=== PATIENT | female | born 1945 | race Caucasian/White ===

== ENCOUNTER 2017-06-18 23:04 | Inpatient (IN) ==
[2017-06-19 00:15] LABS: Bilirubin,Urine Negative (Negative); Blood,Urine Trace (Negative); Clarity,Urine Clear (Clear); Color,Urine Yellow (Yellow); Glucose,Urine (UA) Normal (Normal); Ketones,Urine 15 mg/dL (Negative); Leukocyte Esterase,Urine Negative (Negative); Nitrite,Urine Negative (Negative); PH,Urine 6.5 pH Units (5.0-8.0); Protein,Urine Negative (Neg-Trace); Specific Gravity,Urine 1.014 (1.010-1.025); Urobilinogen,Urine Normal (Normal)
[2017-06-19 00:17] LABS: Bacteria,Urine None Seen per hpf (None-Few); Hyaline Casts,Urine None Seen per lpf (None-Few); RBC,Urine 0-3 per hpf (0-3); Squamous Epithelial Cell,Urine Moderate per lpf (None-Few); WBC,Urine 0-3 per hpf (0-3)
[2017-06-19] MEDS ORDERED: Ondansetron 4 MG/2 ML VIAL IVP ONE (00:32)
[2017-06-19] MEDS ORDERED: *HR* HYDROmorphone (PF) 1 MG/ML SYRINGE IVP ONE (00:32)
--- NOTE | 2017-06-19 00:34 | Emergency Department Note ---
Disposition Clinical Impression: History of hysterectomy Pneumonia Qualifiers: Pneumonia type: due to unspecified organism Laterality: unspecified laterality Lung location: unspecified part of lung Qualified Code(s): J18.9 - Pneumonia, unspecified organism Abdominal pain Qualifiers: Abdominal location: unspecified location Qualified Code(s): R10.9 - Unspecified abdominal pain Disposition: Admitted As Inpatient Condition: Good Time of Disposition: 04:41 Abdominal Pain HPI - General Chief Complaint: ED Nausea/Vomiting/Diarrhea Stated Complaint: had hysterectomy yesterday, vomiting Time Seen by Provider: 06/19/17 00:17 Source: patient Nursing Notes Reviewed: Yes Vital Signs Reviewed: Yes - History of Present Illness Pt Subjective Complaint: abdominal pain Onset (ago): day(s) Consistency: Worsening Location: diffuse Pain Scale: 9 Radiation: none Migration to: no migration Improves with: nothing Worsens with: nothing Context: recent surgery/procedure (Hysterectomy 2 days ago) Associated symptoms: Reports: nausea, vomiting, fever, other (Shortness of breath) Treatments prior to arrival: prescription analgesics - Related Data Home Medications Medication Instructions Recorded Confirmed Amlodipine Besylate 10 mg PO HS 12/12/15 05/12/16 Cholecalciferol (Vitamin D3) 4,000 mg PO HS 12/12/15 05/12/16 [Vitamin D3] Furosemide [Lasix] 40 mg PO DAILY 12/12/15 05/12/16 Glyburide/Metformin HCl 2 tab PO BID 12/12/15 05/12/16 [Glucovance 5-500 mg Tablet] L.acidoph,Paracasei, B.lactis 1 cap PO DAILY 12/12/15 05/12/16 [Probiotic] Levothyroxine [Synthroid] 25 mcg PO DAILY 12/12/15 05/12/16 Omeprazole [PriLOSEC] 40 mg PO DAILY 12/12/15 05/12/16 Melatonin [Melatin] 3 mg PO HS 01/14/16 05/12/16 Previous Rx's Medication Instructions Recorded Docusate [Colace] 1 cap PO BID #60 capsule 01/14/16 Lidocaine/Prilocaine CREAM [Emla] 5 gm TP AD #1 tube 02/04/16 Allergies Allergy/AdvReac Type Severity Reaction Status Date / Time Sulfa (Sulfonamide Allergy Intermediate SKIN SORES Verified 06/18/17 23:11 Antibiotics) acetaminophen [From Vicodin] AdvReac Mild Itching Verified 06/18/17 23:11 hydrocodone [From Vicodin] AdvReac Mild Itching Verified 06/18/17 23:11 hydrochlorothiazide AdvReac Unknown DECREASED Verified 06/18/17 23:11 BP codeine AdvReac Nausea Verified 06/18/17 23:11 lisinopril AdvReac DECREASED Verified 06/18/17 23:11 BP All systems ED: reviewed and negative except as stated. Constitutional: Reports: as per HPI. Denies: weakness Eyes: Denies: eye discharge ENT ED: Denies: throat pain Cardiovascular: Denies: chest pain, palpitations Respiratory: Reports: cough, dyspnea Gastrointestinal: Reports: as per HPI. Denies: diarrhea, constipation Genitourinary: Denies: dysuria Musculoskeletal: Denies: back pain Integumentary: Denies: rash Neurological: Denies: numbness Endocrine: Denies: fatigue Allergic/Immunologic: Denies: facial swelling Abdominal Pain PMH - Past Medical History Medical history: Reports: cancer, CHF, diabetes, GERD, hypertension, other Female Surgical History: Reports: hysterectomy Psychiatric history: Reports: no psych history - Social History Smoking status: Former smoker Alcohol use: Reports: none Drug use: Reports: none Physical Exam - General Limitations: no limitations General appearance: alert, in no apparent distress - Head Head exam: normocephalic - Eye Eye exam: Present: EOMI. Absent: conjunctival injection - ENT ENT exam: mucous membranes moist - Expanded ENT Exam Nose exam: negative: rhinorrhea - Neck Neck exam: Present: normal inspection, full ROM - Chest Chest inspection: Present: symmetric chest wall rise - Respiratory Respiratory exam: Absent: respiratory distress - Cardiovascular Cardiovascular exam: Present: regular rate, normal rhythm - Abdominal Exam Abdominal exam: Present: soft, Non-Tender Course Course Narrative: Patient is a 71-year-old female diabetic that presents with abdominal pain. She mentions 2 days ago she had a robotic hysterectomy at [facility]. Abdominal pain started yesterday evening and has been constant since then. It is accompanied with nausea and vomiting. Measured a temperature at home of 100.9. No relief with the medications at home. She mentions she had called [facility] and advised to come to the emergency department. She mentions she has shortness of breath with nausea, but denies any chest pain. Patient seen and examined. Triage vitals within normal limits. Pat slightly tachy on bedside monitor at 101. Pt feels warm. She mentions sob and cough in addition to her abdominal pain. Surgical trocar incision sites show no concerning signs. Workup initiated. - Reevaluation(s) Reevaluation #1: Patient was discussed with Dr. Beckman, specifically chest x-ray white count, fever. Concerning for right-sided pneumonia. Patient is 2 days postop from hysterectomy at [facility]. She is having abdominal pain and nausea as well. [facility] consult line was paged and I discussed pt with them. They told the patient's surgeon is telecommunications cable jointer tonfrancis and he agreed to have Dr. Portillo paged. Time: 02:00 Reevaluation #2: At This time [facility] consult/transfer line has called back stating that Dr. Portillo has not called back. They are agreeable to transfer to the emergency department if necessary. Patient is requesting admission here if possible, however I did discuss with her that transfer to [facility] might be needed since her abdominal pain may be related to her surgery. She voiced her understanding of this. Time: 02:26 Reevaluation #3: Patient was discussed with Dr. Sommers, who I had asked if they would be willing to accept patient for abdominal pain and likely pneumonia. He did advise CT abdomen and pelvis, and requested [facility] consult if they were to see her here. Time: 02:41 Additional Reevaluation(s): @04:45 Patient and my discussion with [facility] was discussed with and accepted by hospitalist Dr. Sommers. I had also spoke with [facility] transfer again to update, and they mentioned to contact them if needed with any complications or concerns for possible transfer. - Consultations Consultation #1: [facility] was paged, and I discussed Results of CT scan and patientwith Muna Christie. She stated she was familiar with patient, since patient was previously followed by [facility] here, and had been transferred and referred to [facility] from them in the past. She had had advised that patient's abdominal pain is very consistent with patient being 2 days postop robotic laparoscopic hysterectomy, and typically pain from these procedures would included two weeks of pain medications, so she felt patient's pain is not unexpected. She does agree patient would likely need to be admitted for treatment of pneumonia, but from a [facility] standpoint no evidence of any complications, but if needed they would be available for a consult. Time: 04:32 Vital Signs Temperature 98 F 06/18/17 23:07 Pulse Rate 96 06/18/17 23:07 Respiratory Rate 18 06/18/17 23:07 Blood Pressure 182/73 06/18/17 23:07 O2 Sat by Pulse Oximetry 98 06/18/17 23:07 Temperature 98 F 06/18/17 23:07 Pulse Rate 91 06/19/17 03:59 Respiratory Rate 16 06/19/17 03:59 Blood Pressure 166/69 06/19/17 03:59 O2 Sat by Pulse Oximetry 97 06/19/17 03:59 Oxygen Delivery Oxygen Delivery Room Air Abdominal Pain - MDM Narrative Medical decision making narrative: Patient is a 71-year-old female diabetic 2 days. Robotic surgery. She had constant abdominal pain and fever at home. She contacted her she is advised to to be seen at her emergency department. On exam she had some diffuse lower abdominal pain and had also mentioned she was short of breath. Initially we attempted to contact patient's surgeon from the [facility], but [facility] contact transfer line was unable to reach him. They were willing to receive patient in the emergency department, however patient had requested to stay here which would be closer to her home. Workup showed a elevation of white count, and a chest x-ray and CT scan concerning for pneumonia. CT scan showed free fluid in the abdomen which was not postoperative. Patient was discussed with [facility] telecommunications cable jointer provider Muna Christie who is actually familiar with the patient. She feels patient's pain was consistent with hysterectomy, and felt at this point clinically no gynecological condition would be warranted. Hospitalist was porfirio, and I had discussed patient with them for admission for treatment of pneumonia. Patient was accepted by hospitalist Dr. Sommers. Her pain and nausea has been controlled here with pain medications and Zofran. She has been afebrile here. Patient received fluids, and we initiated a dose of Zosyn. Vitals stable, patient safe for transfer to inpatient care. Chest X-Ray 06/19/17 00:31 IMPRESSION: Increased central opacity. Correlate with any clinical evidence of early pulmonary edema. Bronchitis/ bronchopneumonia are considered as well. D/ / Santiago Beasley MD / Santiago Beasley MD Interpreting Provider: Santiago Beasley MD Abdomen/Pelvis CT 06/19/17 02:43 IMPRESSION: 1. Small amount of free fluid and air in the abdomen and pelvis is likely postoperative. 2. Partial atelectasis of the lower lobes with superimposed ground-glass opacities for which pneumonia or edema is not excluded. D/ / Tony Humphries MD / Tony Humphries MD Interpreting Provider: Tony Humphries MD All Lab Results (24 Hours) 06/19/17 06/19/17 06/19/17 Range/Units 00:00 00:47 00:47 WBC 13.3 H (4.3-11.1) K/mcL RBC 3.70 L (3.82-4.97) M/mcL Hgb 9.9 L (11.5-15.4) g/dL Hct 31.2 L (35.3-44.9) % MCV 84.3 (83.0-100.0) fL MCH 26.8 L (28.0-33.3) pg MCHC 31.7 (31.6-35.5) g/dL RDW 14.6 H (11.5-14.5) % Plt Count 214 (140-400) K/mcL MPV 11.5 (9.4-12.4) fL Immature Gran % 0.5 (0-4) % Seg Neutrophils % 84.6 % Lymphocytes % 7.9 % Monocytes % 4.9 % Eosinophils % 1.9 % Basophils % 0.2 % Neutrophils # 11.3 H (1.6-8.9) K/mcL Lymphocytes # 1.1 (0.6-4.6) K/mcL Monocytes # 0.7 (0.0-1.3) K/mcL Eosinophils # 0.3 (0.0-0.6) K/mcL Basophils # 0.0 (0.0-0.2) K/mcL Sodium 136 (136-145) mEq/L Potassium 3.9 (3.5-4.5) mEq/L Chloride 100 (98-109) mEq/L Carbon Dioxide 25 (19-29) mEq/L BUN 14 (7-20) mg/dL Creatinine 0.93 (0.57-1.11) mg/dL Est GFR ( Amer) > 60 (> 60) Est GFR (Non-Af Amer) 59 L (> 60) BUN/Creatinine Ratio 15 (6-26) Glucose 187 H (70-99) mg/dL Calculated Osmolality 287 (280-300) Lactic Acid (0.5-2.2) mmol/L Calcium 9.0 (8.6-10.8) mg/dL Urine Color Yellow (Yellow) Urine Clarity Clear (Clear) Urine pH 6.5 (5.0-8.0) pH Units Ur Specific Horton 1.014 (1.010-1.025) Urine Protein Negative (Neg-Trace) mg/dL Urine Glucose (UA) Normal (Normal) mg/dL Urine Ketones 15 H (Negative) mg/dL Urine Blood Trace H (Negative) Urine Nitrite Negative (Negative) Urine Bilirubin Negative (Negative) Urine Urobilinogen Normal (Normal) mg/dL Ur Leukocyte Esterase Negative (Negative) Urine Microscopic RBC 0-3 (0-3) per hpf Urine Microscopic WBC 0-3 (0-3) per hpf Ur Squamous Epith Cells Moderate H (None-Few) per lpf Urine Bacteria None Seen (None-Few) per hpf Hyaline Casts None Seen (None-Few) per lpf 06/19/17 06/19/17 Range/Units 00:47 04:02 WBC (4.3-11.1) K/mcL RBC (3.82-4.97) M/mcL Hgb (11.5-15.4) g/dL Hct (35.3-44.9) % MCV (83.0-100.0) fL MCH (28.0-33.3) pg MCHC (31.6-35.5) g/dL RDW (11.5-14.5) % Plt Count (140-400) K/mcL MPV (9.4-12.4) fL Immature Gran % (0-4) % Seg Neutrophils % % Lymphocytes % % Monocytes % % Eosinophils % % Basophils % % Neutrophils # (1.6-8.9) K/mcL Lymphocytes # (0.6-4.6) K/mcL Monocytes # (0.0-1.3) K/mcL Eosinophils # (0.0-0.6) K/mcL Basophils # (0.0-0.2) K/mcL Sodium (136-145) mEq/L Potassium (3.5-4.5) mEq/L Chloride (98-109) mEq/L Carbon Dioxide (19-29) mEq/L BUN (7-20) mg/dL Creatinine (0.57-1.11) mg/dL Est GFR ( Amer) (> 60) Est GFR (Non-Af Amer) (> 60) BUN/Creatinine Ratio (6-26) Glucose (70-99) mg/dL Calculated Osmolality (280-300) Lactic Acid 0.8 0.8 (0.5-2.2) mmol/L Calcium (8.6-10.8) mg/dL Urine Color (Yellow) Urine Clarity (Clear) Urine pH (5.0-8.0) pH Units Ur Specific Horton (1.010-1.025) Urine Protein (Neg-Trace) mg/dL Urine Glucose (UA) (Normal) mg/dL Urine Ketones (Negative) mg/dL Urine Blood (Negative) Urine Nitrite (Negative) Urine Bilirubin (Negative) Urine Urobilinogen (Normal) mg/dL Ur Leukocyte Esterase (Negative) Urine Microscopic RBC (0-3) per hpf Urine Microscopic WBC (0-3) per hpf Ur Squamous Epith Cells (None-Few) per lpf Urine Bacteria (None-Few) per hpf Hyaline Casts (None-Few) per lpf - Lab Data Lab results reviewed: Yes I reviewed the patient's lab results. Result diagrams: 06/19/17 00:47 06/19/17 00:47 Lab Results 06/19/17 06/19/17 06/19/17 Range/Units 00:00 00:47 00:47 WBC 13.3 H (4.3-11.1) K/mcL RBC 3.70 L (3.82-4.97) M/mcL Hgb 9.9 L (11.5-15.4) g/dL Hct 31.2 L (35.3-44.9) % MCV 84.3 (83.0-100.0) fL MCH 26.8 L (28.0-33.3) pg MCHC 31.7 (31.6-35.5) g/dL RDW 14.6 H (11.5-14.5) % Plt Count 214 (140-400) K/mcL MPV 11.5 (9.4-12.4) fL Immature Gran % 0.5 (0-4) % Seg Neutrophils % 84.6 % Lymphocytes % 7.9 % Monocytes % 4.9 % Eosinophils % 1.9 % Basophils % 0.2 % Neutrophils # 11.3 H (1.6-8.9) K/mcL Lymphocytes # 1.1 (0.6-4.6) K/mcL Monocytes # 0.7 (0.0-1.3) K/mcL Eosinophils # 0.3 (0.0-0.6) K/mcL Basophils # 0.0 (0.0-0.2) K/mcL Sodium 136 (136-145) mEq/L Potassium 3.9 (3.5-4.5) mEq/L Chloride 100 (98-109) mEq/L Carbon Dioxide 25 (19-29) mEq/L BUN 14 (7-20) mg/dL Creatinine 0.93 (0.57-1.11) mg/dL Est GFR ( Amer) > 60 (> 60) Est GFR (Non-Af Amer) 59 L (> 60) BUN/Creatinine Ratio 15 (6-26) Glucose 187 H (70-99) mg/dL Calculated Osmolality 287 (280-300) Lactic Acid (0.5-2.2) mmol/L Calcium 9.0 (8.6-10.8) mg/dL Urine Color Yellow (Yellow) Urine Clarity Clear (Clear) Urine pH 6.5 (5.0-8.0) pH Units Ur Specific Horton 1.014 (1.010-1.025) Urine Protein Negative (Neg-Trace) mg/dL Urine Glucose (UA) Normal (Normal) mg/dL Urine Ketones 15 H (Negative) mg/dL Urine Blood Trace H (Negative) Urine Nitrite Negative (Negative) Urine Bilirubin Negative (Negative) Urine Urobilinogen Normal (Normal) mg/dL Ur Leukocyte Esterase Negative (Negative) Urine Microscopic RBC 0-3 (0-3) per hpf Urine Microscopic WBC 0-3 (0-3) per hpf Ur Squamous Epith Cells Moderate H (None-Few) per lpf Urine Bacteria None Seen (None-Few) per hpf Hyaline Casts None Seen (None-Few) per lpf 06/19/17 06/19/17 Range/Units 00:47 04:02 WBC (4.3-11.1) K/mcL RBC (3.82-4.97) M/mcL Hgb (11.5-15.4) g/dL Hct (35.3-44.9) % MCV (83.0-100.0) fL MCH (28.0-33.3) pg MCHC (31.6-35.5) g/dL RDW (11.5-14.5) % Plt Count (140-400) K/mcL MPV (9.4-12.4) fL Immature Gran % (0-4) % Seg Neutrophils % % Lymphocytes % % Monocytes % % Eosinophils % % Basophils % % Neutrophils # (1.6-8.9) K/mcL Lymphocytes # (0.6-4.6) K/mcL Monocytes # (0.0-1.3) K/mcL Eosinophils # (0.0-0.6) K/mcL Basophils # (0.0-0.2) K/mcL Sodium (136-145) mEq/L Potassium (3.5-4.5) mEq/L Chloride (98-109) mEq/L Carbon Dioxide (19-29) mEq/L BUN (7-20) mg/dL Creatinine (0.57-1.11) mg/dL Est GFR ( Amer) (> 60) Est GFR (Non-Af Amer) (> 60) BUN/Creatinine Ratio (6-26) Glucose (70-99) mg/dL Calculated Osmolality (280-300) Lactic Acid 0.8 0.8 (0.5-2.2) mmol/L Calcium (8.6-10.8) mg/dL Urine Color (Yellow) Urine Clarity (Clear) Urine pH (5.0-8.0) pH Units Ur Specific Horton (1.010-1.025) Urine Protein (Neg-Trace) mg/dL Urine Glucose (UA) (Normal) mg/dL Urine Ketones (Negative) mg/dL Urine Blood (Negative) Urine Nitrite (Negative) Urine Bilirubin (Negative) Urine Urobilinogen (Normal) mg/dL Ur Leukocyte Esterase (Negative) Urine Microscopic RBC (0-3) per hpf Urine Microscopic WBC (0-3) per hpf Ur Squamous Epith Cells (None-Few) per lpf Urine Bacteria (None-Few) per hpf Hyaline Casts (None-Few) per lpf - Radiology Data Radiology results reviewed: Yes I reviewed the patient's radiology results. Attestation Statement - Attestation Attestation: I, Karl Beckman MD, personally evaluated this patient and discussed their management with the midlevel provicer, PAC/RADIATION THERAPY TECHNICIAN. I reviewed the midlevel provider 's note and agree with the documented findings, medical decision making, and plan of care. 71-year-old female presents to the emergency department complaining of abdominal pain and vomiting. Patient had a hysterectomy on Thursday and was discharged home on . Since getting home she complains of increased abdominal pain associated with nausea and vomiting. There is also been some productive cough with dark sputum and chills and subjective fever. Some mild shortness of breath. On examination patient is a well-developed well-nourished elderly female in no acute distress. She is alert and oriented 3. There is no cyanosis or diaphoresis. Breath sounds are clear and equal bilaterally. Heart regular rate and rhythm. Abdomen soft with present bowel sounds. Mild diffuse tenderness. Labs reviewed. CT shows small amount of free fluid and air in the abdomen and pelvis is likely postoperative. Partial atelectasis of the lower lobes with superimposed ground-glass opacities for which pneumonia or edema is not excluded. Patient prefers to remain here for treatment as opposed to returning to [facility]. Emiliano consulted and discussed the case with LENS HARDENER. The hospitalist, Dr. Sommers, was consulted and accepted admission of the patient.
[2017-06-19 00:57] LABS: Basophils % 0.2 %; Eosinophils # 0.3 K/mcL (0.0-0.6); Eosinophils % 1.9 %; Hematocrit 31.2 % (35.3-44.9); Hemoglobin 9.9 g/dL (11.5-15.4); Immature Granulocytes % 0.5 % (0-4); Lymphocytes # 1.1 K/mcL (0.6-4.6); Lymphocytes % 7.9 %; Mean Corpuscular HGB Conc 31.7 g/dL (31.6-35.5); Mean Corpuscular Hemoglobin 26.8 pg (28.0-33.3); Mean Corpuscular Volume 84.3 fL (83.0-100.0); Mean Platelet Volume 11.5 fL (9.4-12.4); Monocytes # 0.7 K/mcL (0.0-1.3); Monocytes % 4.9 %; Neutrophils # 11.3 K/mcL (1.6-8.9); Platelet Count 214 K/mcL (140-400); Red Cell Distribution Width 14.6 % (11.5-14.5); Segmented Neutrophils % 84.6 %
[2017-06-19 01:09] LABS: BUN/Creatinine Ratio 15 (6-26); Blood Urea Nitrogen 14 mg/dL (7-20); Carbon Dioxide 25 mEq/L (19-29); Chloride 100 mEq/L (98-109); Glucose 187 mg/dL (70-99); Osmolality,Calculated 287 (280-300); Potassium 3.9 mEq/L (3.5-4.5); Sodium 136 mEq/L (136-145); eGFR For African Americans > 60 (> 60); eGFR For Non-African Americans 59 (> 60)
[2017-06-19] MEDS ORDERED: 0.9 % Sodium Chloride 1,000 ML IVC ONE (02:06)
[2017-06-19] MEDS ORDERED: Piperacillin/Tazobactam 3.375 GM in D5% in Water (Mini-Bag+) 100 ML IVPB ONE (02:06)
[2017-06-19] MEDS ORDERED: Ondansetron 4 MG/2 ML VIAL IVP PRN ×3 (04:03→06:50)
[2017-06-19] MEDS ORDERED: Ondansetron 4 MG/2 ML VIAL ONE (04:04)
--- NOTE | 2017-06-19 05:08 | Internal Med History&Physical ---
<Bryce Hernandez - Last Filed: 06/19/17 06:21> Date of Encounter: 06/19/17 Time of Encounter: 05:07 Assessment and Plan (1) Sepsis Current visit: Yes Status: Acute 3 SIRS criteria: WBC 13.3, Fever 100.9 F at home, tachycardia HR 97, HAP likely source of infection Lactic acid 0.8 Sepsis bolus given, continue 2L at 125cc/hr. Cautious hydration given h/o CHF Blood, sputum cultures pending CT abd/plv reveals partial atelectasis of the lower lobes with superimposed ground-glass opacities for which pneumonia Continue Vanc, Zosyn, and Levaquin De-escalate antibiotics once cultures resulted Qualifiers: Sepsis type: sepsis due to unspecified organism Qualified Code(s): A41.9 - Sepsis, unspecified organism (2) Pneumonia Current visit: Yes Status: Acute Fever 100.9 F at home, SOB, and productive cough. Elevated WBC and CT abd/plv concerning for pneumonia. 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 Continue post-op pain control (5) HTN (hypertension) Current visit: Yes Status: Acute Continue home meds Qualifiers: Hypertension type: unspecified Qualified Code(s): I10 - Essential (primary ) hypertension (6) Diabetes mellitus Current visit: Yes Status: Acute Medium dose sliding scale insulin Continue blood glucose monitoring HGB a1c pending Qualifiers: Diabetes mellitus type: type 2 Diabetes mellitus complication status: without complication Diabetes mellitus skilled nursing insulin use: without sizing sponger use Qualified Code(s): E11.9 - Type 2 diabetes mellitus without complications (7) CHF (congestive heart failure) Current visit: Yes Status: Chronic Prior h/o CHF Not in acute exacerbation Cautious IV hydration Continue home meds Qualifiers: Congestive heart failure type: unspecified congestive heart failure type Congestive heart failure chronicity: chronic Qualified Code(s): I50.9 - Heart failure, unspecified (8) Hypothyroidism Current visit: Yes Status: Chronic Continue home meds Qualifiers: Hypothyroidism type: unspecified Qualified Code(s): E03.9 - Hypothyroidism , unspecified (9) Morbid obesity with BMI of 40.0-44.9, adult Current visit: Yes Status: Acute Discussed diet modification and exercise (10) DVT prophylaxis Current visit: Yes Status: Acute Heparin SubQ TID Internal Medicine - H&P: HPI Chief complaint: Abd pain Admitted From: Home Plans for Post Hospital Care: Home History of present illness: Ms. Saavedra is a 71 year old female with a PMH of CHF, diabetes, GERD, hypertension, and remote breast cancer who presented on POD #2 s/p laparoscopic robotic hysterectomy performed at [facility] complaining of constant abd pain, SOB, and productive cough since returning home yesterday. Pain severity is 9/10, gradually worsening, and not relieved by post-op pain regimen/ Percocet. Pateint reports fever 100.9F at home, N/V, and yellow sputum production. Workup revealed elevated WBC and CT abd/plv concerning for pneumonia. Patient denies chills, CP, bowel movement of flatus since surgery, changes in surgical wound sites, leg edema, or recent sick contacts. Past Med Surg Social Fam HX - Past Medical History Medical history: cancer (breast), CHF, diabetes, GERD, hypertension, other Psychiatric history: no psych history - Past Surgical History Surgical History: hysterectomy, other (Right mastectomy) - Social History Smoking Status: Former smoker Smokeless Tobacco Status: No Alcohol use: none Drug use: none Current living situation: Home - Family History Mother Hx Family Cardiac Disorders: Yes (HTN) Father Hx Family Cardiac Disorders: Yes (MA) Internal Medicine - H&P: Meds Amlodipine Besylate 10 mg PO HS 12/12/15 [History] Cholecalciferol (Vitamin D3) [Vitamin D3] 4,000 mg PO HS 12/12/15 [History] Furosemide [Lasix] 40 mg PO DAILY 12/12/15 [History] Glyburide/Metformin HCl [Glucovance 5-500 mg Tablet] 2 tab PO BID 12/12/15 [ History] L.acidoph,Paracasei, B.lactis [Probiotic] 1 cap PO DAILY 12/12/15 [History] Levothyroxine [Synthroid] 25 mcg PO DAILY 12/12/15 [History] Omeprazole [PriLOSEC] 40 mg PO DAILY 12/12/15 [History] Docusate [Colace] 1 cap PO BID #60 capsule 01/14/16 [Rx] Melatonin [Melatin] 3 mg PO HS 01/14/16 [History] Lidocaine/Prilocaine CREAM [Emla] 5 gm TP AD #1 tube 02/04/16 [Rx] 3 Allergy/AdvReac Type Severity Reaction Status Date / Time Sulfa (Sulfonamide Allergy Intermediate SKIN SORES Verified 06/18/17 23:11 Antibiotics) acetaminophen [From Vicodin] AdvReac Mild Itching Verified 06/18/17 23:11 hydrocodone [From Vicodin] AdvReac Mild Itching Verified 06/18/17 23:11 hydrochlorothiazide AdvReac Unknown DECREASED Verified 06/18/17 23:11 BP codeine AdvReac Nausea Verified 06/18/17 23:11 lisinopril AdvReac DECREASED Verified 06/18/17 23:11 BP All Systems PM: A 10-system review of systems was performed and is negative for pertinent findings except as documented above in the HPI. - Constitutional Constitutional: fatigue, fever(s), weakness, no chills, no weight gain, no weight loss - EENT Eyes: no change in vision Nose, mouth and throat: sore throat, no nasal congestion - Cardiovascular Cardiovascular ROS IM: no chest pain, no palpitations - Respiratory Respiratory: cough, dyspnea, chest congestion, excessive phlegm production - Gastrointestinal Gastrointestinal: abdominal pain, nausea, vomiting, no diarrhea - Genitourinary Genitourinary: no dysuria, no urinary frequency, no urinary urgency Additional comments: Denies vaginal bleeding - Musculoskeletal Musculoskeletal ROS IM: no back pain, no muscle weakness, no numbness, no tingling - Integumentary Integumentary IM: erythema, new lesions, no rash - Neurological Neurological ROS: weakness, no dizziness, no numbness - Psychiatric Psychiatric: no anxiety, no depression - Endocrine Endocrine IM: no polydipsia, no polyphagia, no polyuria - Hematologic/Lymphatic Hematologic/Lymphatic: no easy bleeding, no easy bruising - Constitutional Vitals: Temp Pulse Resp BP Pulse Ox 98 F 91 18 156/70 97 06/18/17 23:07 06/19/17 03:59 06/19/17 05:04 06/19/17 05:04 06/19/17 03:59 General appearance: Present: cooperative, mild distress, A&O X 3, morbidly obese , pleasant, answers questions appropriately - Head Head exam: Present: atraumatic, normal inspection, normocephalic - Eye Eye exam: Present: EOMI, PERRL - ENT ENT exam: Present: mucous membranes dry - Expanded ENT Exam Throat exam: Present: post pharyngeal erythema - Neck Neck exam general surgery: Present: normal inspection, supple. Absent: tenderness - Respiratory Respiratory exam: Present: wheezes (diffuse). Absent: accessory muscle use, decreased breath sounds, respiratory distress - Cardiovascular Cardiovascular exam: Present: RRR, +S1, +S2, tachycardia - GI/Abdominal GI/Abdominal exam: Present: distended, normal bowel sounds, soft, tenderness ( appropriate TTP post op, laparoscopic incision sites C/D/I). Absent: firm, guarding - Extremities Exam Extremities exam: Present: normal capillary refill, warm. Absent: pedal edema - Incison Incision: Present: clean and dry, intact, approximated (laparoscopic incision sites C/D/I). Absent: red, erythema, open - Neurological Exam Neurological exam: Present: alert, oriented X3, strengths equal and symetr throughout. Absent: altered - Psychiatric Psychiatric exam: Present: normal affect, normal mood - Skin Skin exam: Present: dry, intact (laparoscopic incision sites C/D/I), normal color, warm Internal Med - H&P Results - Labs CBC & Chem 7: 06/19/17 00:47 06/19/17 00:47 - Impressions ITS Impressions Chest X-Ray 06/19/17 00:31 IMPRESSION: Increased central opacity. Correlate with any clinical evidence of early pulmonary edema. Bronchitis/ bronchopneumonia are considered as well. D/ / Santiago Beasley MD / Santiago Beasley MD Interpreting Provider: Santiago Beasley MD Abdomen/Pelvis CT 06/19/17 02:43 IMPRESSION: 1. Small amount of free fluid and air in the abdomen and pelvis is likely postoperative. 2. Partial atelectasis of the lower lobes with superimposed ground-glass opacities for which pneumonia or edema is not excluded. D/ / Tony Humphries MD / Tony Humphries MD Interpreting Provider: Tony Humphries MD <Aaron Birch - Last Filed: 06/19/17 06:57> Date of Encounter: 06/19/17 Internal Medicine - H&P: HPI History of present illness: Ms. Saavedra is a 71 year old female All Systems PM: A 10-system review of systems was performed and is negative for pertinent findings except as documented above in the HPI. - Constitutional Vitals: Temp Pulse Resp BP Pulse Ox 98.8 F 85 19 182/72 91 06/19/17 06:19 06/19/17 06:19 06/19/17 06:19 06/19/17 06:19 06/19/17 06:19 Internal Med - H&P Results - Labs CBC & Chem 7: 06/19/17 00:47 06/19/17 00:47 - Attending Attestation I examined this patient and my medical decision-making was reviewed with the Resident Physician. I agree with the documented findings, disposition and treatment plan as described except to the extent set forth below. Patient is a 71-year-old female with past medical history of diabetes, hypertension, GERD, h/o breast cancer, CHF and hypothyroidism. Patient presents to the ED with complaints of abdominal pain and distention. She also complains of mild shortness of breath and productive cough with yellow colored sputum. She also complains of subjective fever. Patient underwent laparoscopic robotic hysterectomy at [facility] about 48 hours ago. She was discharged about 12 hours ago. She states she was doing okay when she went home first few hours, and then she developed sudden onset abdominal pain and nausea and vomiting. Patient denies having a bowel movement, but says she is passing flatus. Initial workup in the ED significant for slightly elevated white count. CT of the abdomen and pelvis shows small amount of free fluid and some air in the abdomen that was which is likely postoperative. Patient also likely has pneumonia. She will be on IV antibiotics and IV pain control. Continue IV Zofran and IV Pepcid.
[2017-06-19] MEDS ORDERED: *HR* Morphine 2 MG/ML SYRINGE IVP PRN (05:46)
[2017-06-19] MEDS ORDERED: Naloxone 0.4 MG/ML INJ IVP PRN (05:46)
[2017-06-19] MEDS ORDERED: *HR* OxyCODONE/APAP 5/325 TABLET PO PRN (05:49)
[2017-06-19] MEDS ORDERED: *HR* Dextrose 50 % in Water (Syg) 50 ML SYRINGE IVP PRN (05:50)
[2017-06-19] MEDS ORDERED: D5% in Water 1,000 ML IVC PRN (05:50)
[2017-06-19] MEDS ORDERED: Dextrose Gel 15 GM PO PRN ×2 (05:50)
[2017-06-19] MEDS ORDERED: 0.9 % Sodium Chloride 1,000 ML IVC SCH (06:00)
[2017-06-19] MEDS ORDERED: Vancomycin (wt based) 1,000 MG VIAL IVPB SCH (06:00)
[2017-06-19] MEDS ORDERED: *HR* Promethazine 25 MG/ML VIAL ONE (06:58)
[2017-06-19] MEDS ORDERED: Vancomycin 1,750 MG in D5% in Water 500 ML IVPB ONE (07:00)
[2017-06-19] MEDS: Famotidine 20 MG/2 ML VIAL IVP SCH ×2 (07:13→16:16)
[2017-06-19] MEDS: *HR* Heparin 5,000 UNIT/ML VIAL SQ SCH ×3 (07:13→20:45)
[2017-06-19] MEDS: *HR* Promethazine 25 MG/ML VIAL IVP PRN ×2 (07:22→16:28)
[2017-06-19] MEDS: Melatonin 3 MG TABLET PO SCH ×2 (07:22→20:45)
[2017-06-19] MEDS: Ipratropium/Albuterol Neb 3 ML IH SCH ×5 (07:49→23:51)
[2017-06-19] MEDS ORDERED: Piperacillin/Tazobactam 3.375 GM in D5% in Water (Mini-Bag+) 100 ML IVPB SCH (08:00)
[2017-06-19 08:58] LABS: Magnesium 1.3 mg/dL (1.6-2.6)
[2017-06-19] MEDS ORDERED: Levofloxacin 750 MG/150 ML 750 MG/150 ML BAG IVPB SCH (09:00)
[2017-06-19] MEDS: Insulin LISPRO 300 UNITS/3 ML VIAL SQ SCH ×7 (09:20→23:51)
[2017-06-19] MEDS: Lactobacillus 1 EACH CAP.SPRINK PO SCH (09:21)
[2017-06-19] MEDS: Furosemide 40 MG TABLET PO SCH (09:21)
[2017-06-19] MEDS: Levothyroxine 25 MCG TABLET PO SCH (09:21)
[2017-06-19] MEDS ORDERED: Aminoglycoside Consult 1 EACH MC ONE (12:12)
--- NOTE | 2017-06-19 16:43 | Event Note ---
<AshumarielaJewell Kourtney - Last Filed: 06/19/17 16:35> Date of Encounter: 06/19/17 Time of Encounter: 09:00 S: Patient awake but drowsy. States abdominal pain and nausea improved. O: Gen: A&O x3, no distress Head: atraumatic, normocephalic Heart: RRR, no murmurs Lungs: CTAB, no wheezes Abdomen: bowel sounds present; soft; mild, diffuse expected post-op tenderness Extremities: warm, normal capillary refill, no pedal edema Incisions: clean, dry, intact Neuro: A&O x3, no speech deficit, no facial droop Skin: warm, dry, intact A: acute post-operative pain h/o hysterectomy DM HTN CHF hypothyroidism P: Stop antibiotics as patient is not septic and pneumonia is unlikely; more likely patient has atelectasis from recent intubation/surgery and reactive leukocytosis from recent surgery. Continue post-op pain management and nausea control. Continue home medications for chronic medical conditions. Anticipate discharge tomorrow. <Rodo Nicholson - Last Filed: 06/19/17 17:14> Date of Encounter: 06/19/17 Pt admitted earlier today for possible pneumonia and post op abd pain. She is afebrile and abx have been stopped. Needs to use incentive spirometer. Anticipate d/c tomorrow.
[2017-06-19] MEDS ORDERED: Vancomycin 1,500 MG in D5% in Water 250 ML IVPB SCH (19:00)
[2017-06-19] MEDS: amLODIPine 5 MG TABLET PO SCH (20:45)
[2017-06-19] MEDS: Cholecalciferol (D-3) 1,000 UNIT TABLET PO SCH (20:45)
[2017-06-19] MEDS: Insulin DETEMIR 100 UNIT/ML X5UNITS SQ SCH (21:02)
[2017-06-20] MEDS: Ipratropium/Albuterol Neb 3 ML IH SCH ×6 (03:17→23:34)
[2017-06-20] MEDS: Famotidine 20 MG/2 ML VIAL IVP SCH ×2 (05:14→17:35)
[2017-06-20] MEDS: *HR* Heparin 5,000 UNIT/ML VIAL SQ SCH ×3 (05:15→22:33)
[2017-06-20] MEDS: Insulin LISPRO 300 UNITS/3 ML VIAL SQ SCH ×7 (08:24→22:35)
[2017-06-20] MEDS: Lactobacillus 1 EACH CAP.SPRINK PO SCH (08:30)
[2017-06-20] MEDS: Furosemide 40 MG TABLET PO SCH (08:30)
[2017-06-20] MEDS: Levothyroxine 25 MCG TABLET PO SCH (08:30)
[2017-06-20 08:33] LABS: Hemoglobin A1C 6.8 %
[2017-06-20] MEDS ORDERED: Furosemide 20 MG/2 ML VIAL IVP ONE (08:35)
[2017-06-20] MEDS ORDERED: Magnesium Sulfate 2 GM in D5% in Water 100 ML IVPB ONE (08:41)
--- NOTE | 2017-06-20 08:53 | Internal Med Progress Note ---
<Vasyl Hernandez - Last Filed: 06/20/17 09:21> Date of Encounter: 06/20/17 Time of Encounter: 08:51 - Assessment and plan (1) Acute respiratory failure with hypoxia Current Visit: Yes Status: Acute Assessment and plan: Etiology unclear patient requiring O2 supplementation which she did not require at home s/p hysterectomy admitted initially for pneumonia however no clinical findings suggest this lung exam shows evidence of bisailar crackles hx of CHF hx of breast cancer Plan: CTA-rule out PE continue home lasix 40mg daily PO and will order one additional dose 20mg IV 6m O2 walk test continuous pulse ox (2) S/P hysterectomy Current Visit: Yes Status: Acute Assessment and plan: POD #3 s/p laparoscopic robotic hysterectomy at [facility] on 06/17/17 patient denies bowel movement since surgery tolerateing diet + flatus surgical wound sites C/D/I RN INTERVENTIONAL contacted and evaluated patient stating her abdominal pain is typical post op surgical pain and she should follow up with her cottage cheese maker at [facility] denies abdominal pain (3) Diabetes mellitus Current Visit: Yes Status: Acute Assessment and plan: controlled continue SSI sliding scale continue diabetic diet Qualifiers: Diabetes mellitus type: type 2 Diabetes mellitus complication status: without complication Diabetes mellitus intermediate designer insulin use: without intermediate use Qualified Code(s): E11.9 - Type 2 diabetes mellitus without complications (4) CHF (congestive heart failure) Current Visit: Yes Status: Chronic Assessment and plan: hx of CHF no echo on record will order echo patient is hypoxic and has bibasilar rales continue home lasix patient started on valsartan as she is allergic to an DEBBIE. Qualifiers: Congestive heart failure type: unspecified congestive heart failure type Congestive heart failure chronicity: chronic Qualified Code(s): I50.9 - Heart failure, unspecified (5) Hypothyroidism Current Visit: Yes Status: Chronic Assessment and plan: continue home levothyroxine Qualifiers: Hypothyroidism type: unspecified Qualified Code(s): E03.9 - Hypothyroidism , unspecified (6) Essential hypertension Current Visit: Yes Status: Acute Assessment and plan: currently BP elevated at systolic 180 continue home amlodipine and start valsartan - Subjective Interval history: Patient reports no acute overnight events. According to nursing she desaturated ot 80% while on room air walking to the bathroom. Denies CP, sob, N/V/D, leg pain. - Constitutional Vitals: Temp Pulse Resp BP Pulse Ox 99.0 F 79 16 176/70 96 06/20/17 07:50 06/20/17 07:50 06/20/17 07:52 06/20/17 07:50 06/20/17 08:44 General appearance: Present: cooperative, mild distress, A&O X 3, morbidly obese , pleasant, answers questions appropriately - Respiratory Respiratory exam: Present: rales (bibasilar) - Cardiovascular Cardiovascular exam: Present: RRR, +S1, +S2. Absent: JVD - GI/Abdominal GI/Abdominal exam: Present: normal bowel sounds, soft, no peritoneal signs. Absent: distended, tenderness - Extremities Exam Extremities exam: Present: warm, radial pulses palpable and symmetrical. Absent : calf tenderness, cyanotic, pedal edema Internal Medicine: Result - Labs CBC & Chem 7: 06/19/17 00:47 06/19/17 00:47 Consult Discharge Plan - Plan Referrals: Venessa Vides MD [Primary Care Provider] - <Rodo Nicholson - Last Filed: 06/20/17 16:44> Date of Encounter: 06/20/17 - Assessment and plan (1) Acute respiratory failure with hypoxia Current Visit: Yes Status: Acute (2) CHF (congestive heart failure) Current Visit: Yes Status: Chronic Qualifiers: Congestive heart failure type: unspecified congestive heart failure type Congestive heart failure chronicity: chronic Qualified Code(s): I50.9 - Heart failure, unspecified (3) Essential hypertension Current Visit: Yes Status: Acute (4) Diabetes mellitus Current Visit: Yes Status: Acute Qualifiers: Diabetes mellitus type: type 2 Diabetes mellitus complication status: without complication Diabetes mellitus intermediate designer insulin use: without intermediate designer use Qualified Code(s): E11.9 - Type 2 diabetes mellitus without complications (5) Hypothyroidism Current Visit: Yes Status: Chronic Qualifiers: Hypothyroidism type: acquired Qualified Code(s): E03.9 - Hypothyroidism, unspecified (6) Acute post-operative pain Current Visit: No Status: Acute - Constitutional Vitals: Temp Pulse Resp BP Pulse Ox 99.5 F 66 17 157/69 98 06/20/17 16:04 06/20/17 16:04 06/20/17 16:04 06/20/17 16:04 06/20/17 16:04 Internal Medicine: Result - Labs CBC & Chem 7: 06/19/17 00:47 06/19/17 00:47 - Impressions Impressions Chest CTA 06/20/17 08:45 IMPRESSION: 1. Congestive changes are identified in the chest, as seen on recently performed x-ray of 06/19/2017. 2. No pulmonary embolus is identified. D/ / Nato Morris / Nato Morris Interpreting Provider: Nato Morris Echocardiogram 06/20/17 09:20 Impressions: Findings: - Attending Attestation I examined this patient and my medical decision-making was reviewed with the Resident Physician on 06/20/17. I agree with the documented findings, disposition and treatment plan as described except to the extent set forth below. Ms Saavedra is currently admitted for acute hypoxic resp failure. She reamains moderate to high risk due to potential for worsening respiratory status. Ms Saavedra is hypoxic with movement (81% RA). Still with abd pain. No fever or chills. No cough. She is concerned about CHF. Exam Alert. Moderate discomfort walking in room Mucus membranes dry Heart reg Faint bibasilar rales Abd soft I/P 1. Acute hypoxic resp failure 2. Probable CHF - echo ordered 3. CTA to r/o PE Probable d/c tomorrow. Needs home oxygen at this point Further diagnoses and plan as above.
[2017-06-20] MEDS: Cholecalciferol (D-3) 1,000 UNIT TABLET PO SCH (22:34)
[2017-06-20] MEDS: Melatonin 3 MG TABLET PO SCH (22:34)
[2017-06-20] MEDS: Insulin DETEMIR 100 UNIT/ML X5UNITS SQ SCH (22:35)
[2017-06-20] MEDS: amLODIPine 5 MG TABLET PO SCH (22:40)
[2017-06-21] MEDS: Ipratropium/Albuterol Neb 3 ML IH SCH ×2 (03:38→08:31)
[2017-06-21] MEDS ORDERED: Lactulose Oral Soln 20 GM/30 ML UDC PO PRN (04:40)
[2017-06-21] MEDS: *HR* Heparin 5,000 UNIT/ML VIAL SQ SCH (04:56)
[2017-06-21] MEDS: Famotidine 20 MG/2 ML VIAL IVP SCH (04:56)
--- NOTE | 2017-06-21 08:06 | Discharge Summary ---
<Vasyl Hernandez - Last Filed: 06/21/17 08:00> Date of Encounter: 06/21/17 Time of Encounter: 08:01 - Discharge Diagnosis (1) Acute respiratory failure with hypoxia Priority: Primary Status: Acute (2) S/P hysterectomy Priority: Secondary Status: Acute (3) Diabetes mellitus Priority: Secondary Status: Acute Qualifiers: Diabetes mellitus type: type 2 Diabetes mellitus complication status: without complication Diabetes mellitus fdc insulin use: without rectifier operator use Qualified Code(s): E11.9 - Type 2 diabetes mellitus without complications (4) CHF (congestive heart failure) Priority: Secondary Status: Ruled-out Qualifiers: Congestive heart failure type: unspecified congestive heart failure type Congestive heart failure chronicity: chronic Qualified Code(s): I50.9 - Heart failure, unspecified (5) Hypothyroidism Priority: Secondary Status: Chronic Qualifiers: Hypothyroidism type: acquired Qualified Code(s): E03.9 - Hypothyroidism, unspecified (6) Essential hypertension Priority: Secondary Status: Acute - Discharge Medications Home Medications: Amlodipine Besylate 10 mg PO HS 12/12/15 [History] Cholecalciferol (Vitamin D3) [Vitamin D3] 4,000 mg PO HS 12/12/15 [History] Furosemide [Lasix] 40 mg PO DAILY 12/12/15 [History] Glyburide/Metformin HCl [Glucovance 5-500 mg Tablet] 2 tab PO BID 12/12/15 [ History] L.acidoph,Paracasei, B.lactis [Probiotic] 1 cap PO DAILY 12/12/15 [History] Levothyroxine [Synthroid] 25 mcg PO DAILY 12/12/15 [History] Omeprazole [PriLOSEC] 40 mg PO DAILY 12/12/15 [History] Docusate [Colace] 1 cap PO BID #60 capsule 01/14/16 [Rx] Melatonin [Melatin] 3 mg PO HS 01/14/16 [History] Lidocaine/Prilocaine CREAM [Emla] 5 gm TP AD #1 tube 02/04/16 [Rx] Atorvastatin Calcium [Lipitor] 20 mg PO QPM 06/19/17 [History] Gabapentin [Neurontin] 100 mg PO BID 06/19/17 [History] Oxycodone HCl [Oxaydo] 5 mg PO Q4H PRN 06/19/17 [History] Allergies/Adverse Reactions: 3 Allergy/AdvReac Type Severity Reaction Status Date / Time Sulfa (Sulfonamide Allergy Intermediate SKIN SORES Verified 06/18/17 23:11 Antibiotics) acetaminophen [From Vicodin] AdvReac Mild Itching Verified 06/18/17 23:11 hydrocodone [From Vicodin] AdvReac Mild Itching Verified 06/18/17 23:11 hydrochlorothiazide AdvReac Unknown DECREASED Verified 06/18/17 23:11 BP codeine AdvReac Nausea Verified 06/18/17 23:11 lisinopril AdvReac DECREASED Verified 06/18/17 23:11 BP Procedures/tests Complete & Pending: Procedures Performed prior 72 hours Category Date Time Status CTA chest [CT angio chest] [CT] Routine Cat Scan 06/20/17 08:45 Completed EV echocardiogram Routine Y 06/20/17 09:20 Completed Date of admission: 06/19/17 05:06 Primary care physician: Venessa Vides MD Consults: 06/19/17 05:44 Consult to Nurse Navigator [CONS] Routine Comment: Discharging clinician: Vasyl Hernandez Anticipated date of discharge: 06/21/17 - Patient Status Disposition: Home, Self-Care Condition: Good Functional capacity at discharge: independent ambulation Overall status at discharge: patient is progressing back to baseline - Discharge Instructions Follow Up With: Venessa Vides MD [Primary Care Provider] - (Please follow up with PCP in 7-10 days.) Sebastian Mosley MD [Partnered Physician] - (Webrequest has been sent. Office will contact you with a follow up appointment.) Additional Instructions: Please follow up with PCP, pulomnology, and STONE CRUSHER OPERATOR. Please return to ER if your symptoms worsen. Please use incentive spirometer 10x/day. - Diet and Activity Activity: increase activity as tolerated, wear oxygen at all times, wear oxygen at night Diet: advance to your usual diet, low fat, low cholesterol Hospital course: Ms. Saavedra is a 71 year old female presents with chief complaint of abdominal pain, shortness of breath and productive cough. Patient postop day 2 status post laparoscopic robotic hysterectomy on admission. Patient said the was gradually worsening and pain was 9 out of 10 and not relieved by pain regimen. CT abdomen/pelvis showed small amount of free fluid and air in the abdomen and pelvis and partial atelectasis of the lower lobes with groundglass opacities. Patient was evaluated by STONE CRUSHER OPERATOR which concluded that the patient's abdominal pain is most likely postoperative. Initially patient was admitted for pneumonia however when assessed, patient had no clinical signs of pneumonia. She denies a cough, shortness of breath, fever. Patient did required 2 L of oxygen which she does not use at home. Her antibiotics were discontinued. On lung exam patient did have crackles bibasilar. She had a history of CHF and initially this was attributed to it initially. She was given additional 20 mg IV Lasix in addition to her home dose of Lasix. Patient underwent CTA to rule out pulmonary embolism. CT was negative for PE but did show abnormal lung pathology including diffuse groundglass opacities. Patient states she quit smoking 35 years ago, denies any environmental exposures. Denies any family history of lung disease. Patient qualified for 2 L home oxygen and this was set up. Echocardiogram was negative for congestive heart failure and this diagnosis was taken off her list of medical problems. This morning patient's abdominal pain has resolved. Her shortness of breath is controlled with 2 L of oxygen. She is able to tolerate her diet and ambulate. Patient is ready for discharge. Plan: Follow-up with her primary care physician. Follow-up with pulmonology. Follow up with STONE CRUSHER OPERATOR. - Time Spent with Patient Total time spent providing and/or coordinating discharge services: - Constitutional Vitals: Temp Pulse Resp BP Pulse Ox 97.9 F 74 15 158/69 93 06/21/17 07:46 06/21/17 07:46 06/21/17 07:46 06/21/17 07:46 06/21/17 07:46 General appearance: Present: cooperative, mild distress, A&O X 3, morbidly obese , pleasant, answers questions appropriately - Head Head exam: Present: atraumatic, normocephalic - Eye Eye exam: Present: PERRL, conjuntiva pink, sclera anicteric - Neck Neck exam general surgery: Present: supple, trachea midline. Absent: lymphadenopathy - Respiratory Respiratory exam: Present: rales (Bibasilar rales which sound like Velcro). Absent: accessory muscle use, rhonchi, wheezes - Cardiovascular Cardiovascular exam: Present: RRR, +S1, +S2. Absent: diastolic murmur, gallop, rubs, systolic murmur - GI/Abdominal GI/Abdominal exam: Present: normal bowel sounds, soft, no peritoneal signs. Absent: distended, tenderness - Extremities Exam Extremities exam: Present: warm, radial pulses palpable and symmetrical. Absent : calf tenderness, cyanotic, pedal edema - Neurological Exam Neurological exam: Present: CN II-XII intact, oriented X3, no focal deficits. Absent: pronater drift, facial droop, speech deficit - Skin Skin exam: Present: dry, intact <Rodo Nicholson - Last Filed: 06/21/17 12:22> Date of Encounter: 06/21/17 - Discharge Diagnosis (1) Acute respiratory failure with hypoxia Status: Acute (2) CHF (congestive heart failure) Status: Ruled-out Qualifiers: Congestive heart failure type: unspecified congestive heart failure type Congestive heart failure chronicity: chronic Qualified Code(s): I50.9 - Heart failure, unspecified (3) Essential hypertension Status: Acute (4) Diabetes mellitus Status: Acute Qualifiers: Diabetes mellitus type: type 2 Diabetes mellitus complication status: without complication Diabetes mellitus rectifier operator insulin use: without rectifier operator use Qualified Code(s): E11.9 - Type 2 diabetes mellitus without complications (5) Hypothyroidism Status: Chronic Qualifiers: Hypothyroidism type: acquired Qualified Code(s): E03.9 - Hypothyroidism, unspecified (6) Acute post-operative pain Priority: Secondary Status: Acute Procedures/tests Complete & Pending: Procedures Performed prior 72 hours Category Date Time Status CTA chest [CT angio chest] [CT] Routine Cat Scan 06/20/17 08:45 Completed EV echocardiogram Routine Y 06/20/17 09:20 Completed Date of admission: 06/19/17 05:06 Primary care physician: Venessa Vides MD Consults: 06/19/17 05:44 Consult to Nurse Navigator [CONS] Routine Comment: Hospital course: Ms. Saavedra is a 71 year old female - Time Spent with Patient Total time spent providing and/or coordinating discharge services: 39min - Constitutional Vitals: Temp Pulse Resp BP Pulse Ox 98.2 F 69 17 164/70 97 06/21/17 11:15 06/21/17 11:15 06/21/17 11:15 06/21/17 11:15 06/21/17 11:15 - Attending Attestation I examined this patient and my medical decision-making was reviewed with the Resident Physician on 06/21/17. I agree with the documented findings, disposition and treatment plan as described except to the extent set forth below. Ms Saavedra has been admitted for hypoxic resp failure and abd pain s/p hysterectomy. She is feeling OK. She is afebrile with stable vitals. CTA negative for PE and echo shows no CHF. Most likely hypoxia related to lung disease and atelectasis from surgery. Exam Alert. Comfortable Mucus membranes dry Heart reg - no murmur Lungs diminished Abd soft No edema Plan D/C home today Follow with PCP and pulmonology Post op care per her Clinical Biostatistics Director. Refused flu vaccine at this time.
[2017-06-21] MEDS: Insulin LISPRO 300 UNITS/3 ML VIAL SQ SCH ×2 (08:09→08:10)
[2017-06-21] MEDS: Furosemide 40 MG TABLET PO SCH (10:07)
[2017-06-21] MEDS: Levothyroxine 25 MCG TABLET PO SCH (10:07)
[2017-06-21] MEDS: Lactobacillus 1 EACH CAP.SPRINK PO SCH (10:08)
[2017-06-21 11:19] VITALS: BP 164/70
== END 2017-06-21 12:13 | disposition home or self-care (01) | DRG 189 ==
LOC: EMEROO 23:04 → 3BNU 23:04 → SUATTDRO 06-19 05:06 → 3BNU 06-19 05:07
PROVIDERS: ADMIT Family Medicine; ATTEND Internal Medicine

== ENCOUNTER 2019-01-18 11:01 | Inpatient (IN) ==
[2019-01-18] MEDS ORDERED: 0.9 % Sodium Chloride 1,000 ML IVC ONE (11:33)
[2019-01-18 11:46] LABS: Basophils % 0.3 %; Eosinophils # 0.1 K/mcL (0.0-0.6); Eosinophils % 0.6 %; Hematocrit 36.8 % (35.3-44.9); Hemoglobin 11.7 g/dL (11.5-15.4); Immature Granulocytes % 0.4 % (0-4); Lymphocytes % 9.2 %; Mean Corpuscular HGB Conc 31.8 g/dL (31.6-35.5); Mean Corpuscular Hemoglobin 26.7 pg (28.0-33.3); Monocytes # 0.4 K/mcL (0.0-1.3); Monocytes % 3.9 %; Neutrophils # 9.3 K/mcL (1.6-8.9); Platelet Count 285 K/mcL (140-400); Red Blood Count 4.38 M/mcL (3.82-4.97); Red Cell Distribution Width 14.8 % (11.5-14.5); Segmented Neutrophils % 85.6 %
[2019-01-18 12:05] LABS: Alanine Aminotransferase 16 Units/L (7-52); Albumin 3.7 g/dL (3.5-5.7); Alkaline Phosphatase 92 Units/L (34-104); Aspartate Amino Transferase 14 Units/L (13-39); BUN/Creatinine Ratio 13 (6-26); Bilirubin,Total 0.3 mg/dL (0.3-1.0); Blood Urea Nitrogen 11 mg/dL (8-23); Calcium 9.5 mg/dL (8.6-10.3); Carbon Dioxide 24 mEq/L (23-29); Chloride 101 mEq/L (98-107); Globulin 3.8 g/dL (2.4-3.5); Glucose 271 mg/dL (70-105); Magnesium 1.7 mg/dL (1.6-2.6); Osmolality,Calculated 289 (280-300); Potassium 3.6 mEq/L (3.5-5.1); Sodium 135 mEq/L (136-145); Total Protein 7.5 g/dL (6.4-8.9); Troponin I < 0.03 ng/mL (< 0.04); eGFR For Non-African Americans > 60 (> 60)
[2019-01-18] MEDS ORDERED: Ondansetron 4 MG/2 ML VIAL IVP ONE (12:53)
[2019-01-18 15:54] LABS: Bilirubin,Urine Negative (Negative); Blood,Urine Negative (Negative); Clarity,Urine Clear (Clear); Color,Urine Yellow (Yellow); Glucose,Urine (UA) 500 mg/dL (Normal); Ketones,Urine 15 mg/dL (Negative); Leukocyte Esterase,Urine Negative (Negative); Nitrite,Urine Negative (Negative); PH,Urine 5.5 pH Units (5.0-8.0); Protein,Urine Negative (Neg-Trace); Specific Gravity,Urine 1.016 (1.010-1.025); Urobilinogen,Urine Normal (Normal)
--- NOTE | 2019-01-18 16:26 | Electrocardiograph Report ---
[facility] Test Date: 2019-01-18 Pat Name: Deidre Saavedra Department: [id number] Room: Gender: F Chief Engineer'S Helper: : 1945 Requested By: Gareth Noland Order Number: [id number] Reading MD: Shashi Hopkins Measurements Intervals [place] Rate: 91 P: 41 [place]: 156 QRS: 2 QRSD: 89 T: 52 QT: 362 QTc: 446 Interpretive Statements Sinus rhythm Electronically Signed On 01-18-2019 16:24:14 EDT by Shashi Hopkins
--- NOTE | 2019-01-18 17:37 | Emergency Department Note ---
Disposition Clinical Impression: Generalized weakness, Unsteady gait Disposition: Admitted As Inpatient Condition: Good Referrals: Venessa Vides MD [Primary Care Provider] - Forms: ED Satisfaction Letter Time of Disposition: 18:25 Weakness HPI - General Chief complaint: ED Weakness Stated complaint: nausea Time Seen by Provider: 01/18/19 11:24 Source: patient, family, EMS Limitations: physical limitation - History of Present Illness HPI Narrative: Patient is a 73-year-old female that presents to the emergency department with chief complaint of generalized weakness. Patient reports that since Thursday she has been extremely weak and not been vomiting. Patient reports that 3 weeks ago she had a small area on her right side of her chest pain some fluid from an area that was a seroma post surgery for breast cancer. Patient states that now she is extremely weak and having difficulty ambulating by herself. The patient denies fever denies diarrhea the patient states that she is not having chest pain or shortness of breath with symptoms. Pt Subjective Complaint: generalized weakness/fatigue Pain Scale: 0 - Related Data Home Medications Medication Instructions Recorded Confirmed Amlodipine Besylate 10 mg PO HS 12/12/15 12/28/18 Cholecalciferol (Vitamin D3) 5,000 units PO HS 12/12/15 12/28/18 [Vitamin D3] Furosemide [Lasix] 40 mg PO PRN PRN 12/12/15 12/28/18 Glyburide/Metformin HCl 2 tab PO BID 12/12/15 12/28/18 [Glucovance 5-500 mg Tablet] Levothyroxine [Synthroid] 25 mcg PO DAILY 12/12/15 12/28/18 Omeprazole [PriLOSEC] 40 mg PO DAILY 12/12/15 12/28/18 Naproxen Sodium [Aleve] 1 tab PO Q12HR PRN 09/03/18 12/28/18 Docusate [Colace] 1 cap PO DAILY 09/30/18 12/28/18 Previous Rx's Medication Instructions Recorded Anastrozole [Arimidex] 1 mg PO DAILY 30 Days #30 tablet 11/03/18 Calcium Carbonate/Vitamin D3 2 each PO DAILY #60 tablet 11/03/18 [Calcium 500 + Vit D Caplet] Amoxicillin/Clavulanate [Augmentin] 875 mg PO BIDWM #20 tablet 01/03/19 Allergies Allergy/AdvReac Type Severity Reaction Status Date / Time Sulfa (Sulfonamide Allergy Intermediate SKIN SORES Verified 01/18/19 11:08 Antibiotics) acetaminophen [From Vicodin] AdvReac Mild Itching Verified 01/18/19 11:08 hydrocodone [From Vicodin] AdvReac Mild Itching Verified 01/18/19 11:08 hydrochlorothiazide AdvReac Unknown DECREASED Verified 01/18/19 11:08 BP codeine AdvReac Nausea Verified 01/18/19 11:08 lisinopril AdvReac DECREASED Verified 01/18/19 11:08 BP All systems ED: reviewed and negative except as stated. Past Medical History - Past Medical History Attestation: Yes The following information was validated with the patient. 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 Head: Normocephalic/atraumatic Eyes:PERRLA, EOMI, no conjunctivitis Nares: Without d/c. Ears: No erythema or d/c noted. Oralpharnyx: P&MMM noted, Neck: Supple, no JVD or CHILDREN TEACHER noted. Cardovascular: regular rate and rhythm without murmur, brisk capillary refill, no peripheral edema. Lungs: Clear to ascultation bilaterally, non-labored Abd: Soft nontender, Non Distended, no guarding, no rebound. : Defered Extremities: moves all extremities equally Neuro: AOx3, no obvious gross neuro deficit patient is unstable whenever trying to ambulate Psych: Normal Affect Derm: No rash noted - General Limitations: physical limitation General appearance: alert, in no apparent distress Course Vital Signs Temperature 98.1 F 01/18/19 11:09 Pulse Rate 94 01/18/19 11:09 Respiratory Rate 20 01/18/19 11:09 Blood Pressure 189/94 01/18/19 11:09 O2 Sat by Pulse Oximetry 96 01/18/19 11:09 Temperature 98.1 F 01/18/19 11:09 Pulse Rate 79 01/18/19 18:14 Respiratory Rate 16 01/18/19 18:14 Blood Pressure 171/77 01/18/19 18:14 O2 Sat by Pulse Oximetry 96 01/18/19 18:14 Oxygen Delivery Oxygen Delivery Room Air Weakness - Lab Data Result diagrams: 01/18/19 11:25 01/18/19 11:25 Lab Results 01/18/19 01/18/19 01/18/19 Range/Units 11:25 11:25 11:25 WBC 10.8 (4.3-11.1) K/mcL RBC 4.38 (3.82-4.97) M/mcL Hgb 11.7 (11.5-15.4) g/dL Hct 36.8 (35.3-44.9) % MCV 84.0 (83.0-100.0) fL MCH 26.7 L (28.0-33.3) pg MCHC 31.8 (31.6-35.5) g/dL RDW 14.8 H (11.5-14.5) % Plt Count 285 (140-400) K/mcL MPV 11.0 (9.4-12.4) fL Immature Gran % 0.4 (0-4) % Seg Neutrophils % 85.6 % Lymphocytes % 9.2 % Monocytes % 3.9 % Eosinophils % 0.6 % Basophils % 0.3 % Neutrophils # 9.3 H (1.6-8.9) K/mcL Lymphocytes # 1.0 (0.6-4.6) K/mcL Monocytes # 0.4 (0.0-1.3) K/mcL Eosinophils # 0.1 (0.0-0.6) K/mcL Basophils # 0.0 (0.0-0.2) K/mcL Sodium 135 L (136-145) mEq/L Potassium 3.6 (3.5-5.1) mEq/L Chloride 101 (98-107) mEq/L Carbon Dioxide 24 (23-29) mEq/L BUN 11 (8-23) mg/dL Creatinine 0.84 (0.60-1.20) mg/dL Est GFR ( Amer) > 60 (> 60) Est GFR (Non-Af Amer) > 60 (> 60) BUN/Creatinine Ratio 13 (6-26) Glucose 271 H (70-105) mg/dL Calculated Osmolality 289 (280-300) Lactic Acid 1.0 (0.5-2.2) mmol/L Calcium 9.5 (8.6-10.3) mg/dL Magnesium 1.7 (1.6-2.6) mg/dL Total Bilirubin 0.3 (0.3-1.0) mg/dL AST 14 (13-39) Units/L ALT 16 (7-52) Units/L Alkaline Phosphatase 92 (34-104) Units/L Troponin I < 0.03 (< 0.04) ng/mL Serum Total Protein 7.5 (6.4-8.9) g/dL Albumin 3.7 (3.5-5.7) g/dL Globulin 3.8 H (2.4-3.5) g/dL Albumin/Globulin Ratio 1.0 L (1.1-2.2) Urine Color (Yellow) Urine Clarity (Clear) Urine pH (5.0-8.0) pH Units Ur Specific [place] (1.010-1.025) Urine Protein (Neg-Trace) mg/dL Urine Glucose (UA) (Normal) mg/dL Urine Ketones (Negative) mg/dL Urine Blood (Negative) Urine Nitrite (Negative) Urine Bilirubin (Negative) Urine Urobilinogen (Normal) mg/dL Ur Leukocyte Esterase (Negative) Ur Culture Indicated? (NO) 01/18/19 Range/Units 15:30 WBC (4.3-11.1) K/mcL RBC (3.82-4.97) M/mcL Hgb (11.5-15.4) g/dL Hct (35.3-44.9) % MCV (83.0-100.0) fL MCH (28.0-33.3) pg MCHC (31.6-35.5) g/dL RDW (11.5-14.5) % Plt Count (140-400) K/mcL MPV (9.4-12.4) fL Immature Gran % (0-4) % Seg Neutrophils % % Lymphocytes % % Monocytes % % Eosinophils % % Basophils % % Neutrophils # (1.6-8.9) K/mcL Lymphocytes # (0.6-4.6) K/mcL Monocytes # (0.0-1.3) K/mcL Eosinophils # (0.0-0.6) K/mcL Basophils # (0.0-0.2) K/mcL Sodium (136-145) mEq/L Potassium (3.5-5.1) mEq/L Chloride (98-107) mEq/L Carbon Dioxide (23-29) mEq/L BUN (8-23) mg/dL Creatinine (0.60-1.20) mg/dL Est GFR ( Amer) (> 60) Est GFR (Non-Af Amer) (> 60) BUN/Creatinine Ratio (6-26) Glucose (70-105) mg/dL Calculated Osmolality (280-300) Lactic Acid (0.5-2.2) mmol/L Calcium (8.6-10.3) mg/dL Magnesium (1.6-2.6) mg/dL Total Bilirubin (0.3-1.0) mg/dL AST (13-39) Units/L ALT (7-52) Units/L Alkaline Phosphatase (34-104) Units/L Troponin I (< 0.04) ng/mL Serum Total Protein (6.4-8.9) g/dL Albumin (3.5-5.7) g/dL Globulin (2.4-3.5) g/dL Albumin/Globulin Ratio (1.1-2.2) Urine Color Yellow (Yellow) Urine Clarity Clear (Clear) Urine pH 5.5 (5.0-8.0) pH Units Ur Specific [place] 1.016 (1.010-1.025) Urine Protein Negative (Neg-Trace) mg/dL Urine Glucose (UA) 500 H (Normal) mg/dL Urine Ketones 15 H (Negative) mg/dL Urine Blood Negative (Negative) Urine Nitrite Negative (Negative) Urine Bilirubin Negative (Negative) Urine Urobilinogen Normal (Normal) mg/dL Ur Leukocyte Esterase Negative (Negative) Ur Culture Indicated? NO (NO)
[2019-01-18] MEDS ORDERED: Acetaminophen 325 MG TABLET PO PRN (21:53)
[2019-01-18] MEDS ORDERED: Dextrose Gel 15 GM/37.5 ML TUBE PO PRN ×2 (21:53)
[2019-01-18] MEDS ORDERED: Naloxone 0.4 MG/ML INJ IVP PRN (21:53)
[2019-01-18] MEDS ORDERED: *HR* Dextrose 50 % in Water (Syg) 50 ML SYRINGE IVP PRN (21:53)
[2019-01-18] MEDS ORDERED: D5% in Water 1,000 ML IVC PRN (21:53)
[2019-01-18 22:51] LABS: Estimated Average Glucose 180 mg/dl; Hemoglobin A1C 7.9 %
--- NOTE | 2019-01-18 23:04 | Internal Med History&Physical ---
Date of Encounter: 01/18/19 Time of Encounter: 20:15 Internal Medicine - H&P: HPI Chief complaint: weakness, nausea, falling Admitted From: Emergency Dept Plans for Post Hospital Care: Home History of present illness: Ms. Saavedra is a 73 year old female who presents to the ER with complaints of nausea, vomiting, weakness, falling, and ataxia which started abruptly roughly 4 days ago. She was hopeful that her symptoms would resolve, but they persisted and she therefore came to ER for evaluation. Workup in ER was negative, but because of her inability to ambulate safely and falling risks, she was admitted to hospitalist service. Of note, she also has a draining wound/abscess of her right axilla. She recently finished antibiotics and has been following with Dr. Spence regarding this wound. The wound is at the site of her prior breast surgery several years ago from breast cancer. She denies any fevers, chills, or night sweats. Upon my assessment of the patient, she confirms the above history. She denies any focal weakness, numbness, paresthesias, or paralysis. She denies any dysarthria, speech problems, or headaches. Upon further questioning, she states she is able to reproduce her symptoms by changing position and turning her head side to side rapidly. She has never had vertigo before. She denies any prior stroke symptoms or any focal neurologic issues. She denies any recent URI, sinus problems, or ear infection. Workup in the ER was negative, including CT of the head, chest x-ray, and electrocardiogram. Past Med Surg Social Fam HX - Past Medical History Attestation: Yes The following information was validated with the patient. Source: patient, old records reviewed Medical history: cancer, CHF, diabetes, GERD, hypertension Additional medical history: OSTEOPENIA. URINARY FREQUENCY/INCONTINENCE. DIVERTICULOSIS. RIGHT BREAST CA Psychiatric history: no psych history - Past Surgical History Surgical History: hysterectomy, other Additional surgical history: sinus sx, right ankle break and repair, tubal - Social History Smoking Status: Former smoker Smokeless Tobacco Status: No Alcohol use: none Drug use: none Current living situation: Home, With Family Activity Level: Independent ambulation Recent Out of Country Travel Within the Last 8 Weeks: No - Family History Mother Adopted: No Family Member Ethnicity: Non- Living Status: Hx Family Cardiac Disorders: Yes Hx Family Respiratory Disorders: No Hx Family Cancer: Yes Hx Family GI Disorders: No Hx Family Genitourinary Disorders: No Hx Family Endocrine Disorder: No Hx Family Musculoskeletal Disorders: No Hx Family Neuromuscular Disorders: No Hx Family Neurologic Disorders: No Hx Family HEENT Disorders: No Hx Family Autoimmune Disorders: No Hx Family Reproductive Disorders: No Hx Family Psychosocial Disorders: No Hx Family Medical Disorders: No Father Adopted: Yes Family Member Ethnicity: Non- Living Status: Hx Family Cardiac Disorders: Yes Hx Family Respiratory Disorders: No Hx Family Cancer: Yes Hx Family GI Disorders: No Hx Family Genitourinary Disorders: No Hx Family Endocrine Disorder: No Hx Family Musculoskeletal Disorders: No Hx Family Neuromuscular Disorders: No Hx Family Neurologic Disorders: No Hx Family HEENT Disorders: No Hx Family Autoimmune Disorders: No Hx Family Reproductive Disorders: No Hx Family Psychosocial Disorders: No Internal Medicine - H&P: Meds Amlodipine Besylate 10 mg PO HS 12/12/15 [History] Glyburide/Metformin HCl [Glucovance 5-500 mg Tablet] 2 tab PO BID 12/12/15 [History] Levothyroxine [Synthroid] 25 mcg PO DAILY 12/12/15 [History] Omeprazole [PriLOSEC] 40 mg PO DAILY 12/12/15 [History] Naproxen Sodium [Aleve] 1 tab PO Q12HR PRN 09/03/18 [History] Docusate [Colace] 1 cap PO DAILY PRN 09/30/18 [History] Anastrozole [Arimidex] 1 mg PO DAILY 30 Days #30 tablet 11/03/18 [Rx] Calcium Carbonate/Vitamin D3 [Calcium 500 + Vit D Caplet] 2 each PO DAILY #60 tablet 11/03/18 [Rx] Mv W-Ca/Iron/FA/Lutein/Hrb#179 [[employer]ando Multivit For Women Caplet] 1 tab PO DAILY 01/18/19 [History] Allergy/AdvReac Type Severity Reaction Status Date / Time Sulfa (Sulfonamide Allergy Intermediate SKIN SORES Verified 01/18/19 11:08 Antibiotics) hydrocodone [From Vicodin] AdvReac Mild Itching Verified 01/18/19 11:08 hydrochlorothiazide AdvReac Unknown DECREASED Verified 01/18/19 11:08 BP codeine AdvReac Nausea Verified 01/18/19 11:08 lisinopril AdvReac DECREASED Verified 01/18/19 11:08 BP - Constitutional Constitutional: falls, weakness, no chills, no fever(s), no night sweats - EENT Eyes: diplopia, no blurry vision Ears: no ear pain, no tinnitus Nose, mouth and throat: no nasal congestion, no sinus pressure, no sore throat - Breasts Breasts: other (wound/drainage from right axillary abscess/seroma) - Cardiovascular Cardiovascular ROS IM: no chest pain, no dyspnea, no dyspnea on exertion - Respiratory Respiratory: no dyspnea, no wheezing, no chest congestion, no excessive phlegm production, no change in phlegm color - Gastrointestinal Gastrointestinal: nausea, vomiting, no abdominal pain, no diarrhea, no hematemesis, no hematochezia, no melena - Genitourinary Genitourinary: no dysuria, no flank pain, no hematuria - Musculoskeletal Musculoskeletal ROS IM: no arthralgias, no back pain - Integumentary Integumentary IM: no rash, no jaundice - Neurological Neurological ROS: abnormal gait, dizziness, no abnormal speech, no confusion, no focal weakness, no headache(s), no numbness, no paresthesias - Psychiatric Psychiatric: no anxiety, no depression - Endocrine Endocrine IM: no polydipsia, no polyuria - Allergic/Immunologic Allergic/Immunologic: no GI upset with certain foods - Constitutional Vitals: Temp Pulse Resp BP Pulse Ox 97.9 F 82 16 186/81 94 01/18/19 20:29 01/18/19 20:32 01/18/19 20:29 01/18/19 20:32 01/18/19 20:29 General appearance: Present: cooperative, A&O X 3, pleasant, no acute distress, answers questions appropriately Exam: patient able to reproduce symptoms simply by turning her head side to side - Head Head exam: Present: atraumatic, normal inspection - Eye Eye exam: Present: EOMI, normal appearance, nystagmus (when turning her head or changing positions), PERRL. Absent: scleral icterus Pupils: Present: normal accommodation - ENT ENT exam: Present: mucous membranes dry, normal exam, normal oropharynx - Neck Neck exam general surgery: Present: full ROM, supple, trachea midline. Absent: lymphadenopathy, tenderness, nuchal rigidity, thyromegaly - Respiratory Respiratory exam: Present: CTAB. Absent: chest wall tenderness, rales, rhonchi, tachypnea - Cardiovascular Cardiovascular exam: Present: RRR, +S1, +S2. Absent: diastolic murmur, systolic murmur - GI/Abdominal GI/Abdominal exam: Present: normal bowel sounds, soft. Absent: guarding, hep atomegaly, mass, rebound, splenomegaly, tenderness - Extremities Exam Extremities exam: Present: full ROM, normal capillary refill, warm, radial pulses palpable and symmetrical. Absent: calf tenderness, joint swelling, pedal edema, tenderness Additional comments: right axillary wound with packing and clear minimal drainage; no surrounding redness, swelling, or foul smell noted - Back Exam Back exam: Absent: CVA tenderness (L), CVA tenderness (R) - Neurological Exam Neurological exam: Present: alert, CN II-XII intact, oriented X3, reflexes normal, no focal deficits, strengths equal and symetr throughout. Absent: motor sensory deficit, facial droop, speech deficit Additional comments: + nystagmus noted with position change and head turn; normal finger to nose testing - Psychiatric Psychiatric exam: Present: normal affect, normal mood - Skin Skin exam: Present: dry, intact, warm Internal Med - H&P Results - Labs CBC & Chem 7: 01/18/19 11:25 01/18/19 11:25 Labs: Short CBC 01/18/19 Range/Units 11:25 WBC 10.8 (4.3-11.1) K/mcL Hgb 11.7 (11.5-15.4) g/dL Hct 36.8 (35.3-44.9) % Plt Count 285 (140-400) K/mcL Neutrophils # 9.3 H (1.6-8.9) K/mcL BMP 01/18/19 11:25 Sodium 135 L Potassium 3.6 Chloride 101 Carbon Dioxide 24 BUN 11 Creatinine 0.84 Glucose 271 H Calcium 9.5 Cardiac Enzymes 01/18/19 Range/Units 11:25 Troponin I < 0.03 (< 0.04) ng/mL Liver Function 01/18/19 Range/Units 11:25 Total Bilirubin 0.3 (0.3-1.0) mg/dL AST 14 (13-39) Units/L ALT 16 (7-52) Units/L Alkaline Phosphatase 92 (34-104) Units/L Albumin 3.7 (3.5-5.7) g/dL Urine 01/18/19 Range/Units 15:30 Urine Color Yellow (Yellow) Urine Clarity Clear (Clear) Urine pH 5.5 (5.0-8.0) pH Units Ur Specific [place] 1.016 (1.010-1.025) Urine Protein Negative (Neg-Trace) mg/dL Urine Glucose (UA) 500 H (Normal) mg/dL - EKG Data -: EKG Interpreted by Myself - EKG Data Prior EKG available for review: no EKG comments: 01/18/19 23:10 NSR, no acute ST-T changes - Impressions ITS Impressions Chest X-Ray 01/18/19 11:33 IMPRESSION: No acute cardiopulmonary findings. D/ / Naz Laughlin MD / Naz Laughlin MD Interpreting Provider: Naz Laughlin MD Head CT 01/18/19 16:50 IMPRESSION: No acute intracranial abnormality. D/ / Candelario Ordoñez MD / Candelario Ordoñez MD Interpreting Provider: Candelario Ordoñez MD - Diagnostic Studies Chest x-ray Status: image reviewed by me (negatove) - Assessment and Plan (1) Vertigo Current Visit: Yes Status: Acute Assessment and plan: 1. Will treat with IVF and PRN Antivert. 2. Will order MRI brain and scheduled neurochecks to rule out CVA. 3. Clinical exam suggests vertigo. (2) Abscess of right axilla Current Visit: Yes Status: Chronic Assessment and plan: 1. Patient recently completed antibiotics. 2. Consult wound care and possibly surgery if necessary. 3. I ordered culture of wound. (3) Unsteady gait Current Visit: Yes Status: Acute Assessment and plan: 1. Suspect due to Vertigo. 2. Proceed with MRI brain and neurochecks as above. 3. May need PT/OT consults after above work-up. (4) DM II (diabetes mellitus, type II), controlled Current Visit: Yes Status: Chronic Assessment and plan: 1. Will order SSI and glucose monitoring. 2. Hold oral diabetic agents. Qualifiers: Diabetes mellitus chcf insulin use: without intermediate designer use Diabetes mellitus complication status: without complication Qualified Code(s): E11.9 - Type 2 diabetes mellitus without complications (5) DVT prophylaxis Current Visit: Yes Status: Acute Assessment and plan: 1. Heparin SQ.
[2019-01-18] MEDS: amLODIPine 5 MG TABLET PO SCH (23:35)
[2019-01-18] MEDS: 0.9 % Sodium Chloride w KCl 20 MEQ/1,000 ML MLS IVC SCH (23:36)
[2019-01-18] MEDS: Insulin LISPRO 300 UNITS/3 ML VIAL SQ SCH (23:57)
[2019-01-19 03:45] LABS: Basophils % 0.5 %; Eosinophils # 0.2 K/mcL (0.0-0.6); Eosinophils % 1.9 %; Hematocrit 33.9 % (35.3-44.9); Hemoglobin 10.6 g/dL (11.5-15.4); Immature Granulocytes % 0.2 % (0-4); Lymphocytes # 2.5 K/mcL (0.6-4.6); Lymphocytes % 28.6 %; Mean Corpuscular HGB Conc 31.3 g/dL (31.6-35.5); Mean Corpuscular Hemoglobin 26.6 pg (28.0-33.3); Mean Platelet Volume 11.2 fL (9.4-12.4); Monocytes # 0.6 K/mcL (0.0-1.3); Monocytes % 7.2 %; Neutrophils # 5.5 K/mcL (1.6-8.9); Platelet Count 264 K/mcL (140-400); Red Blood Count 3.99 M/mcL (3.82-4.97); Segmented Neutrophils % 61.6 %
[2019-01-19 03:51] LABS: INR 1.1; Prothrombin Time 11.9 Seconds (9.4-12.1)
[2019-01-19 03:54] LABS: Activated Partial Thrombo Time 26.3 Seconds (26.0-36.0)
[2019-01-19 04:04] LABS: Alanine Aminotransferase 14 Units/L (7-52); Albumin 3.4 g/dL (3.5-5.7); Alkaline Phosphatase 82 Units/L (34-104); Aspartate Amino Transferase 13 Units/L (13-39); BUN/Creatinine Ratio 11 (6-26); Bilirubin,Total 0.3 mg/dL (0.3-1.0); Blood Urea Nitrogen 8 mg/dL (8-23); Calcium 9.1 mg/dL (8.6-10.3); Carbon Dioxide 25 mEq/L (23-29); Chloride 106 mEq/L (98-107); Chol/HDL Ratio 4.4 (0-4.9); Cholesterol 174 mg/dL (< 200); Globulin 3.4 g/dL (2.4-3.5); Glucose 117 mg/dL (70-105); HDL Cholesterol 40 mg/dL (40-59); LDL Cholesterol,Calculated 109 mg/dL (0-99); Magnesium 1.8 mg/dL (1.6-2.6); Osmolality,Calculated 289 (280-300); Potassium 3.8 mEq/L (3.5-5.1); Sodium 140 mEq/L (136-145); Total Protein 6.8 g/dL (6.4-8.9); Triglycerides 125 mg/dL (< 150); eGFR For Non-African Americans > 60 (> 60)
[2019-01-19] MEDS: Levothyroxine 25 MCG TABLET PO SCH (05:52)
[2019-01-19] MEDS: *HR* Heparin 5,000 UNIT/ML VIAL SQ SCH ×2 (05:52→18:03)
[2019-01-19] MEDS: Anastrozole 1 MG TABLET PO SCH (09:25)
[2019-01-19] MEDS: Multivit/Ca/Min/Fe/FA 1 TAB TABLET PO SCH (09:26)
[2019-01-19] MEDS: 0.9 % Sodium Chloride w KCl 20 MEQ/1,000 ML MLS IVC SCH (09:27)
[2019-01-19] MEDS ORDERED: Aspirin Enteric Coated 81 MG Tablet PO SCH (10:00)
[2019-01-19] MEDS ORDERED: Isovue-370 500 ML BOTTLE IVP ONE (10:23)
--- NOTE | 2019-01-19 11:21 | Internal Med Progress Note ---
Hospitalist Progress Note - Encounter Date of Encounter: 01/19/19 Time of Encounter: 11:19 - Subjective Interval History: Patient seen and examined in the room. She reported occasional vertigo and ataxia while sitting up or walking. Symptoms have been ongoing since last Thursday. Denies any headache, numbness, or weakness. Denies history of CVA, CAD, or any peripheral vascular disease in the past. - Exam Vitals: Temp Pulse Resp BP Pulse Ox 98.1 F 78 16 177/69 93 01/19/19 10:12 01/19/19 10:12 01/19/19 10:12 01/19/19 10:12 01/19/19 10:12 Exam: PHYSICAL EXAMINATION: GENERAL APPEARANCE: The patient is alert, oriented and in no acute distress. HEENT: Head is normocephalic. The sinuses are nontender. Pupils are equal and reactive. The nares are patent. Oropharynx clear without lesions. NECK: Supple without lymphadenopathy. HEART: Regular rate and rhythm. LUNGS: No crackles or wheezes are heard. ABDOMEN: Soft, nontender, nondistended with good bowel sounds heard. Inguinal area is normal. EXTREMITIES: Without cyanosis, clubbing or edema. NEUROLOGICAL: Gross nonfocal. SKIN: Warm and dry without any rash. - Assessment and Plan (1) CVA (cerebral vascular accident) Current Visit: Yes Status: Acute Assessment and Plan: 3-year-old female with history of hypertension, hyperlipidemia, and diabetes presented with 5 days of vertigo, weakness, and ataxia. 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 MRA of brain showed absence of right-sided vertebral artery and multiple stenosis on the posterior circulation. Echocardiogram showed a preserved ejection fraction and mild valvular disease. Labs showed an elevated LDL. Patient BP was notable to be elevated since admission. - Telemetry showed a sinus rhythm currently, continue telemetry monitoring to rule out paroxysmal atrial fibrillation. - Started patient on aspirin and statins. Permissive hypertension for the first 24 hours, will treat hypertension tomorrow. - Neurology consulted and appreciate help. (2) DM II (diabetes mellitus, type II), controlled Current Visit: Yes Status: Chronic Assessment and Plan: Hemoglobin A1c 7.9, home medications including glipizide and metformin. Discussed with the patient about goal of A1c and possible change of treatment b ased on her CVA. Continue insulin sliding scale. (3) HTN (hypertension) Current Visit: No Status: Acute (4) Hypothyroidism Current Visit: No Status: Chronic Assessment and Plan: continue home meds. (5) Essential hypertension Current Visit: No Status: Acute Assessment and Plan: permissive hypertension for first 24 hours, will adjust meds to achieve better BP control after 24 hours. (6) Abscess of right axilla Current Visit: Yes Status: Chronic Assessment and Plan: 1. Patient recently completed antibiotics. 2. Consult wound care and possibly surgery if necessary. 3. pending culture of wound. (7) Hyperlipidemia Current Visit: Yes Status: Acute Assessment and Plan: statin started. (8) DVT prophylaxis Current Visit: Yes Status: Acute Assessment and Plan: 1. Heparin SQ. - Time Spent with Patient Total time spent is greater than 50% in coordination of care (as documented) at patient's floor/unit and/or counseling patient: Greater than 35 minutes Plan of Care Discussed with: patient Internal Medicine: Result - Labs CBC & Chem 7: 01/19/19 03:29 01/19/19 03:29 Labs: Short CBC 01/18/19 01/19/19 Range/Units 11:25 03:29 WBC 10.8 8.9 (4.3-11.1) K/mcL Hgb 11.7 10.6 L (11.5-15.4) g/dL Hct 36.8 33.9 L (35.3-44.9) % Plt Count 285 264 (140-400) K/mcL Neutrophils # 9.3 H 5.5 (1.6-8.9) K/mcL BMP 01/18/19 01/19/19 11:25 03:29 Sodium 135 L 140 Potassium 3.6 3.8 Chloride 101 106 Carbon Dioxide 24 25 BUN 11 8 Creatinine 0.84 0.70 Glucose 271 H 117 H Calcium 9.5 9.1 Cardiac Enzymes 01/18/19 Range/Units 11:25 Troponin I < 0.03 (< 0.04) ng/mL Liver Function 01/18/19 01/19/19 Range/Units 11:25 03:29 Total Bilirubin 0.3 0.3 (0.3-1.0) mg/dL AST 14 13 (13-39) Units/L ALT 16 14 (7-52) Units/L Alkaline Phosphatase 92 82 (34-104) Units/L Albumin 3.7 3.4 L (3.5-5.7) g/dL Urine 01/18/19 Range/Units 15:30 Urine Color Yellow (Yellow) Urine Clarity Clear (Clear) Urine pH 5.5 (5.0-8.0) pH Units Ur Specific [place] 1.016 (1.010-1.025) Urine Protein Negative (Neg-Trace) mg/dL Urine Glucose (UA) 500 H (Normal) mg/dL - ABG Interpretation ABG results: PT/INR, D-dimer PT 11.9 Seconds (9.4-12.1) 01/19/19 03:29 - Impressions Impressions Chest X-Ray 01/18/19 11:33 IMPRESSION: No acute cardiopulmonary findings. D/ / Naz Laughlin MD / Naz Laughlin MD Interpreting Provider: Naz Laughlin MD Head CT 01/18/19 16:50 IMPRESSION: No acute intracranial abnormality. D/ / Candelario Ordoñez MD / Candelario Ordoñez MD Interpreting Provider: Candelario Ordoñez MD Echocardiogram 01/19/19 07:00 Impressions: LVEF 60-65%. Normal LV chamber size and function. Mild concentric left ventricular hypertrophy. Mild left ventricular diastolic dysfunction. Normal right ventricular structure and function. No evidence of pulmonary hypertension. No significant valvular dysfunction. Left Ventricular Wall Motion: Rest Echo Findings All wall segments showed normal motion. Findings: Study Quality * Technically adequate exam. ECG Findings * Normal sinus rhythm. Left Ventricle * LVEF 60-65%. * Normal LV chamber size and function. * Mild concentric left ventricular hypertrophy. * Mild left ventricular diastolic dysfunction. Right Ventricle * Normal right ventricular structure and function. Left Atrium * Mildly dilated left atrium. Right Atrium * Normal right atrial size. Aortic Valve * Aortic valve not well visualized. * No aortic regurgitation. * No aortic stenosis. Mitral Valve * Mild mitral annular calcification * Trace mitral regurgitation. * No mitral stenosis. Tricuspid Valve * Normal tricuspid valve structure and function. * Trace tricuspid regurgitation. * No evidence of pulmonary hypertension. Pulmonic Valve * Pulmonic valve is not well visualized. * No pulmonic regurgitation. Aorta * Normally sized aortic root. Pericardium * The pericardium appears normal. IVC * Normal IVC dimensions and inspiratory collapse. Pulmonary Artery * Pulmonary artery not well visualized. Brain MRI 01/19/19 08:36 IMPRESSION: Multiple acute small bilateral cerebellar infarcts Mild high T2 signal within the intracranial portion of the right vertebral artery which likely represents slow flow Moderate chronic small vessel ischemic disease within the periventricular white matter of both cerebral hemispheres D/ / 01/19/2019 09:11:36 Castro Troncoso MD / mildred Interpreting Provider: Castro Troncoso MD Head MRA 01/19/19 09:52 IMPRESSION: Absence of signal in the right vertebral artery, likely related to occlusion. 70% focal stenosis at the distal V4 segment of the left vertebral artery. 40% focal stenosis in the proximal P2 segment of the left [employer]. 90% focal stenosis at the origin of the P2 segment of the right [employer] RA[employer]ROAD. D/ / Isma Can MD / Isma Can MD Interpreting Provider: Isma Can MD Consult Discharge Plan - Plan Referrals: Venessa Vides MD [Primary Care Provider] - 02/22/19 10:00 am (You have been pl aced on the waiting list with your primary care office for a sooner appointment. The office will contact you at home. Thank you. 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 (2) DM II (diabetes mellitus, type II), controlled Qualifiers: Diabetes mellitus secret service agent insulin use: without shelter use Diabetes mellitus complication status: without complication Qualified Code(s): E11.9 - Type 2 diabetes mellitus without complications (3) HTN (hypertension) Qualifiers: Hypertension type: unspecified Qualified Code(s): I10 - Essential (primary) hypertension (4) Hypothyroidism Qualifiers: Hypothyroidism type: acquired Qualified Code(s): E03.9 - Hypothyroidism, unspecified (7) Hyperlipidemia Qualifiers: Hyperlipidemia type: unspecified Qualified Code(s): E78.5 - Hyperlipidemia, unspecified
[2019-01-19] MEDS: Insulin LISPRO 300 UNITS/3 ML VIAL SQ SCH ×4 (11:30→20:50)
--- NOTE | 2019-01-19 13:09 | Neurology - Consult Note ---
<Al Story - Last Filed: 01/19/19 15:40> Date of Encounter: 01/19/19 Time of Encounter: 13:05 Assessment and Plan (1) CVA (cerebral vascular accident) Current Visit: Yes Status: Acute Acute CVA 4 day history of dizziness, falls and ataxia Risk factors include age, DM, HLD, HTN, obesity Uncontrolled DM and HTN noncompliant with statin regimen Hypertensive urgency on admission; this persists. SBP ABG. 170s-190 EKG normal sinus rhythm Initial CT of head unremarkable TTE-EF 60-65%, mild LVH, mild LVDD, no valvular dsfx, no PHTN MR brain multiple acute small bilateral cerebellar infarcts MRA-absence of signal in the right vertebral artery secondary to occlusion, 70% stenosis at distal V4 segment of LVA, 40% stenosis of proximal P2 segment left SECURITY SYSTEMS ADMINISTRATOR, 90% stenosis at origin of P2 segment of right SECURITY SYSTEMS ADMINISTRATOR Neuro exam reveals positive Romberg's, ataxia and dysmetria, otherwise sensory and sensorimotor intact. Patient started on aspirin and statin this admission Continue aspirin 81 mg daily for 48 hours then DC. 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 Saavedra is a 73 year old female with a PMH of breast cancer, CHF, DM, HLD, HTN and GERD. She presents to [facility] with a four-day history of falls, dizziness and ataxia. She reports that these symptoms are ongoing and have been getting progressively worse over the last 4 days. She denies any symptoms such as visual changes, headache, head/neck stiffness, dysphagia, dysarthria, unilateral numbness/weakness. She reports that when she attempts to walk she drifts from side to side most notably to the left. Since her symptoms began she has not attempted to walk much due to fear of falling. MRI today reveals multiple acute small bilateral cerebellar infarcts, mild high T2 signal within the intracranial portion of the right vertebral artery which likely represents slow flow. MRA of the head shows absence of the signal in the right vertebral artery which likely is occluded, 70% focal stenosis at the distal V4 segment of the left vertebral artery, 40% focal stenosis in the proximal P2 segment of the left SECURITY SYSTEMS ADMINISTRATOR, 90% focal stenosis at the origin of the P2 segment of the right SECURITY SYSTEMS ADMINISTRATOR. Past Med Surg Social Fam HX - Past Medical History Medical history: cancer, CHF, diabetes, GERD, hypertension Additional medical history: OSTEOPENIA. URINARY FREQUENCY/INCONTINENCE. DIVERTICULOSIS. RIGHT BREAST CA Psychiatric history: no psych history - Past Surgical History Surgical History: hysterectomy, other Additional surgical history: sinus sx, right ankle break and repair, tubal - Social History Smoking Status: Former smoker Smokeless Tobacco Status: No Alcohol use: none Drug use: none - Family History Mother Adopted: No Family Member Ethnicity: Non- Living Status: Hx Family Cardiac Disorders: Yes Hx Family Respiratory Disorders: No Hx Family Cancer: Yes Hx Family GI Disorders: No Hx Family Genitourinary Disorders: No Hx Family Endocrine Disorder: No Hx Family Musculoskeletal Disorders: No Hx Family Neuromuscular Disorders: No Hx Family Neurologic Disorders: No Hx Family HEENT Disorders: No Hx Family Autoimmune Disorders: No Hx Family Reproductive Disorders: No Hx Family Psychosocial Disorders: No Hx Family Medical Disorders: No Father Adopted: Yes Family Member Ethnicity: Non- Living Status: Hx Family Cardiac Disorders: Yes Hx Family Respiratory Disorders: No Hx Family Cancer: Yes Hx Family GI Disorders: No Hx Family Genitourinary Disorders: No Hx Family Endocrine Disorder: No Hx Family Musculoskeletal Disorders: No Hx Family Neuromuscular Disorders: No Hx Family Neurologic Disorders: No Hx Family HEENT Disorders: No Hx Family Autoimmune Disorders: No Hx Family Reproductive Disorders: No Hx Family Psychosocial Disorders: No Medications and Allergies Amlodipine Besylate 10 mg PO HS 12/12/15 [History] Glyburide/Metformin HCl [Glucovance 5-500 mg Tablet] 2 tab PO BID 12/12/15 [History] Levothyroxine [Synthroid] 25 mcg PO DAILY 12/12/15 [History] Omeprazole [PriLOSEC] 40 mg PO DAILY 12/12/15 [History] Naproxen Sodium [Aleve] 1 tab PO Q12HR PRN 12/14/18 [History] Docusate [Colace] 1 cap PO DAILY PRN 09/30/18 [History] Anastrozole [Arimidex] 1 mg PO DAILY 30 Days #30 tablet 11/03/18 [Rx] Calcium Carbonate/Vitamin D3 [Calcium 500 + Vit D Caplet] 2 each PO DAILY #60 tablet 11/03/18 [Rx] Mv W-Ca/Iron/FA/Lutein/Hrb#179 [Servando Multivit For Women Caplet] 1 tab PO DAILY 01/18/19 [History] Allergy/AdvReac Type Severity Reaction Status Date / Time Sulfa (Sulfonamide Allergy Intermediate SKIN SORES Verified 01/18/19 11:08 Antibiotics) hydrocodone [From Vicodin] AdvReac Mild Itching Verified 01/18/19 11:08 hydrochlorothiazide AdvReac Unknown DECREASED Verified 01/18/19 11:08 BP codeine AdvReac Nausea Verified 01/18/19 11:08 lisinopril AdvReac DECREASED Verified 01/18/19 11:08 BP All Systems: The remainder of the systems were reviewed and are negative Review of Systems: REVIEW OF SYSTEMS NEUROLOGIC: POSITIVE-ataxia, disequilibrium, dizziness negative- for visual changes, facial asymmetry, headache, dysphagia, dysarthria, unilateral numbness/weakness. PSYCH: agitation/irritability, anxiety, delirium, nervous, mood changes, insomnia, nightmares, depression, PTSD, SI/HI, energy loss, restlessness, personality changes HEENT: Negative for any head trauma, neck trauma, neck stiffness, photophobia, phonophobia, dysphagia, voice changes, sinusitis, rhinitis, tinnitus, decreased hearing, ear discharge or fullness,. CARDIAC: Negative for any chest pain, dyspnea, palpitations, peripheral edema MUSCULOSKELETAL: Positive decreased activity tolerance Physical Examination - Vital Signs Vital Signs: Initial Vital Signs Temp Pulse Resp BP Pulse Ox 98.1 F 94 20 189/94 96 01/18/19 11:09 01/18/19 11:09 01/18/19 11:09 01/18/19 11:09 01/18/19 11:09 - Exam Exam: Examination: General Examination: *CONSTITUTIONAL: Alert and oriented x3, no acute distress, *GENERAL APPEARANCE OF PATIENT obese elderly female *EYES: pupils equal, round, reactive to light and accommodation, conjunctiva clear without masses or ulcerations, fundi normal. *CARDIOVASCULAR RRR, S1, S2, no peripheral edema, distal temperature normal, dorsalis pedis pulses normal. See vital signs Musculoskeletal: *GAIT AND STATION positive Romberg's, patient unsteady with standing, deferred gait exam due to unsteadiness *ASSESSMENT OF MUSCLE STRENGTH IN THE UPPER AND LOWER EXTREMITIES bilateral deltoid, bicep, tricep, cafeteria cashier strength, hip flexors ,anterior tibialis, dorsoflexion of the foot 4/5 *MUSCLE TONE IN THE UPPER AND LOWER EXTREMITIES normal. No abnormal movements, fasciculations or atrophy identified. Neurological: *ORIENTATION to person, situation, time and place *RECURRENT AND REMOTE MEMORY intact *ATTENTION AND CONCENTRATION are normal *LANGUAGE FUNCTION no significant aphasia or dysarthia was noted. *FUND OF KNOWLEDGE aware of current events, past history, vocabulary *MENTAL attention span and concentration normal. *CN II optic fundi were normal, no papilledema noted. *CN III,IV, PERRLA extraocular eye movements were full, no nystagmus and no ptosis noted. *CN V shows normal sensation and jaw opens symmetrically. *CN VII shows normal facial movement symmetrically, upper and lower bilaterally. *CN VIII shows no significant hearing loss on exam *CN IX,,X palate elevated symmetrically *CN XI normal strength in the sternocleidomastoid muscles, symmetrical shoulder shrugging. *CN XII tongue protruded in the midline, with normal strength and movement. *SENSORY EXAMINATION light touch intact *REFLEXES: deep tendon reflexes were normal and symmetrical , grade 3/4 diffusely, no pathological reflexes were noted. *CEREBELLAR TESTING dysmetria with finger to nose exam *PAIN LEVEL 0 Results - Laboratory Findings CBC and BMP: 01/19/19 03:29 01/19/19 03:29 Abnormal lab findings: Abnormal lab results Hgb 10.6 g/dL (11.5-15.4) L 01/19/19 03: Hct 33.9 % (35.3-44.9) L 01/19/19 03: MCH 26.6 pg (28.0-33.3) L 01/19/19 03:29 MCHC 31.3 g/dL (31.6-35.5) L 01/19/19 03: RDW 15.0 % (11.5-14.5) H 01/19/19 03:29 9.3 K/mcL (1.6-8.9) H 01/18/19 11:25 Sodium 135 mEq/L (136-145) L 01/18/19 11:25 Glucose 117 mg/dL (70-105) H 01/19/19 03:29 POC Glucose 117 mg/dL (70-99) H 01/18/19 20:35 7.9 % (-5.6) H 01/18/19 22:26 3.4 g/dL (3.5-5.7) L 01/19/19 03:29 3.8 g/dL (2.4-3.5) H 01/18/19 11:25 1.0 (1.1-2.2) L 01/19/19 03:29 LDL Cholesterol, Calc 109 mg/dL (0-99) H 01/19/19 03:29 500 mg/dL (Normal) H 01/18/19 15:30 15 mg/dL (Negative) H 01/18/19 15:30 - Diagnostic Findings Additional findings: MR/MR angio head wo con IMPRESSION: Absence of signal in the right vertebral artery, likely related to occlusion. 70% focal stenosis at the distal V4 segment of the left vertebral artery. 40% focal stenosis in the proximal P2 segment of the left SECURITY SYSTEMS ADMINISTRATOR. 90% focal stenosis at the origin of the P2 segment of the right SECURITY SYSTEMS ADMINISTRATOR. MR/MR head/brain wo con IMPRESSION: Multiple acute small bilateral cerebellar infarcts Mild high T2 signal within the intracranial portion of the right vertebral artery which likely represents slow flow Moderate chronic small vessel ischemic disease within the periventricular white matter of both cerebral hemispheres EV/EV echocardiogram Impressions: LVEF 60-65%. Normal LV chamber size and function. Mild concentric left ventricular hypertrophy. Mild left ventricular diastolic dysfunction. Normal right ventricular structure and function. No evidence of pulmonary hypertension. No significant valvular dysfunction. Consult Discharge Plan - Plan Referrals: Venessa Vides MD [Primary Care Provider] - 02/22/19 10:00 am (You have been placed on the waiting list with your primary care office for a sooner appointment. The office will contact you at home. Thank you. ) <Gordon Hoover I - Last Filed: 01/19/19 15:49> Date of Encounter: 01/19/19 Assessment and Plan (1) CVA (cerebral vascular accident) Current Visit: Yes Status: Acute I have personally performed a face to face diagnostic evaluation, including HPI, EXAM, which is included in the Assesment and plan, which was discussed with Al Story CNP, I agree with the above outlined documentation. This patient apparently had multiple posterior circulation infarct predominantly in the cerebellum, with minimal findings on examination except that she is been having some positional dizziness and difficulty with her gait and balance as expected with a cerebellar stroke. During the workup she was found to have, occluded right vertebral artery and multiple stenosis in the peripheral segments of left vertebral, which is likely the reason for these acute/subacute infarcts. As the right vertebral is completely occluded certainly she is not a candidate for any intervention and at the same time due to peripheral branches of left vertebral she cannot get any vascular intervention and then either all the option will be medical treatment as she already receiving it, At the moment is no hemorrhagic component into these ischemic infarcts. She is been on dual antiplatelet therapy now but I would recommend to discontinue aspirin after 2 days of overlap with the Plavix to a wide any hemorrhagic complications. Continue PTOT she would probably benefit from short-term rehabilitation as she would remain at risk for difficulty with a gait and balance. Discussed with the family at the bedside explained all in detail Gordon Hoover MD. 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 Saavedra is a 73 year old female All Systems: The remainder of the systems were reviewed and are negative Physical Examination - Vital Signs Vital Signs: Initial Vital Signs Temp Pulse Resp BP Pulse Ox 98.1 F 94 20 189/94 96 01/18/19 11:09 01/18/19 11:09 01/18/19 11:09 01/18/19 11:09 01/18/19 11:09 Results - Laboratory Findings CBC and BMP: 01/19/19 03:29 01/19/19 03:29 Abnormal lab findings: Abnormal lab results Hgb 10.6 g/dL (11.5-15.4) L 01/19/19 03:29 Hct 33.9 % (35.3-44.9) L 01/19/19 03:29 MCH 26.6 pg (28.0-33.3) L 01/19/19 03:29 MCHC 31.3 g/dL (31.6-35.5) L 01/19/19 03:29 RDW 15.0 % (11.5-14.5) H 01/19/19 03:29 9.3 K/mcL (1.6-8.9) H 01/18/19 11:25 Sodium 135 mEq/L (136-145) L 01/18/19 11:25 Glucose 117 mg/dL (70-105) H 01/19/19 03:29 POC Glucose 117 mg/dL (70-99) H 01/18/19 20:35 7.9 % (-5.6) H 01/18/19 22:26 3.4 g/dL (3.5-5.7) L 01/19/19 03:29 3.8 g/dL (2.4-3.5) H 01/18/19 11:25 1.0 (1.1-2.2) L 01/19/19 03:29 LDL Cholesterol, Calc 109 mg/dL (0-99) H 01/19/19 03:29 500 mg/dL (Normal) H 01/18/19 15:30 15 mg/dL (Negative) H 01/18/19 15:30
--- NOTE | 2019-01-19 14:21 | Electrocardiograph Report ---
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
[2019-01-19] MEDS: amLODIPine 5 MG TABLET PO SCH (20:20)
[2019-01-20 02:28] LABS: Hematocrit 33.9 % (35.3-44.9); Hemoglobin 10.5 g/dL (11.5-15.4); Mean Corpuscular Hemoglobin 26.4 pg (28.0-33.3); Mean Corpuscular Volume 85.4 fL (83.0-100.0); Mean Platelet Volume 11.5 fL (9.4-12.4); Platelet Count 261 K/mcL (140-400); Red Blood Count 3.97 M/mcL (3.82-4.97); Red Cell Distribution Width 14.9 % (11.5-14.5)
[2019-01-20 02:44] LABS: BUN/Creatinine Ratio 10 (6-26); Blood Urea Nitrogen 7 mg/dL (8-23); Carbon Dioxide 26 mEq/L (23-29); Chloride 104 mEq/L (98-107); Glucose 146 mg/dL (70-105); Osmolality,Calculated 287 (280-300); Potassium 3.6 mEq/L (3.5-5.1); Sodium 138 mEq/L (136-145); eGFR For Non-African Americans > 60 (> 60)
[2019-01-20] MEDS: *HR* Heparin 5,000 UNIT/ML VIAL SQ SCH ×2 (06:20→17:00)
[2019-01-20] MEDS: Levothyroxine 25 MCG TABLET PO SCH (06:20)
[2019-01-20] MEDS: Aspirin Enteric Coated 81 MG Tablet PO SCH (08:08)
[2019-01-20] MEDS: Insulin LISPRO 300 UNITS/3 ML VIAL SQ SCH ×4 (08:08→23:58)
[2019-01-20] MEDS: Multivit/Ca/Min/Fe/FA 1 TAB TABLET PO SCH (08:08)
[2019-01-20] MEDS: Anastrozole 1 MG TABLET PO SCH (08:09)
--- NOTE | 2019-01-20 09:03 | Neurology Progress Note ---
<Al Story J - Last Filed: 01/20/19 09:00> Date of Encounter: 01/20/19 Time of Encounter: 09:00 Assessment and Plan (1) CVA (cerebral vascular accident) Current Visit: Yes Status: Acute Presented with dizziness, ataxia and falls. MRI revealing multiple posterior circulation infarcts predominantly in the cerebellum. Additional workup revealed occluded right vertebral artery and multiple stenosed peripheral segments of the left vertebral artery Given right vertebral artery occlusion and severe stenosis in the left patient is not a candidate for any intervention Currently getting aspirin and Plavix. Plan is to discontinue aspirin tomorrow morning and continue Plavix thereon after Given persistent dizziness and ataxia patient will likely benefit from inpatient short-term rehabilitation Recommend PT/OT evaluation Today I will also order carotid duplex scans Qualifiers: CVA mechanism: embolism Precerebral and cerebral artery: cerebellar artery Laterality of affected vessel: bilateral Qualified Code(s): I63.443 - Cere bral infarction due to embolism of bilateral cerebellar arteries (2) Vertebral artery occlusion Current Visit: Yes Status: Acute Subjective Principal diagnosis: CVA Interval history: Patient seen in follow up for acute CVA in the posterior circulation. Presented with ataxia and falls. No new neuro concerns or symptoms overnight. Condition remains stable. Discussed POC including adding Plavix and the need for neuro follow up at d/c. Denies any new questions. Objective - Constitutional Vitals: Temp Pulse Resp BP Pulse Ox 98.4 F 76 16 218/82 94 01/20/19 07:46 01/20/19 07:46 01/20/19 07:46 01/20/19 07:46 01/20/19 07:46 Exam: Examination: General Examination: *CONSTITUTIONAL: Alert and oriented x3, no acute distress, *GENERAL APPEARANCE OF PATIENT obese elderly female *EYES: pupils equal, round, reactive to light and accommodation, conjunctiva clear without masses or ulcerations, fundi normal. *CARDIOVASCULAR RRR, S1, S2, no peripheral edema, distal temperature normal, dorsalis pedis pulses normal. 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 No abnormal movements, fasciculations or atrophy identified. Neurological: *ORIENTATION to person, situation, time and place *RECURRENT AND REMOTE MEMORY intact *ATTENTION AND CONCENTRATION are normal *LANGUAGE FUNCTION no significant aphasia or dysarthia was noted. *FUND OF KNOWLEDGE aware of current events, past history, vocabulary *MENTAL attention span and concentration normal. *CN II optic fundi were normal, no papilledema noted. *CN III,IV, PERRLA extraocular eye movements were full, no nystagmus and no ptosis noted. *CN V shows normal sensation and jaw opens symmetrically. *CN VII shows normal facial movement symmetrically, upper and lower bilaterally. *CN VIII shows no significant hearing loss on exam *CN IX,,X palate elevated symmetrically *CN XI normal strength in the sternocleidomastoid muscles, symmetrical shoulder shrugging. *CN XII tongue protruded in the midline, with normal strength and movement. *SENSORY EXAMINATION light touch intact *REFLEXES: deep tendon reflexes were normal and symmetrical , grade 3/4 diffusely, no pathological reflexes were noted. *CEREBELLAR TESTING dysmetria with finger to nose exam *PAIN LEVEL 0 Results - Laboratory Findings CBC and BMP: 01/20/19 01:08 01/20/19 01:08 Abnormal lab findings: Abnormal lab results Hgb 10.5 g/dL (11.5-15.4) L 01/20/19 01:08 Hct 33.9 % (35.3-44.9) L 01/20/19 01:08 MCH 26.4 pg (28.0-33.3) L 01/20/19 01:08 MCHC 31.0 g/dL (31.6-35.5) L 01/20/19 01:08 RDW 14.9 % (11.5-14.5) H 01/20/19 01:08 9.3 K/mcL (1.6-8.9) H 01/18/19 11:25 Sodium 135 mEq/L (136-145) L 01/18/19 11:25 BUN 7 mg/dL (8-23) L 01/20/19 01:08 Glucose 146 mg/dL (70-105) H 01/20/19 01:08 POC Glucose 170 mg/dL (70-99) H 01/19/19 19:23 7.9 % (-5.6) H 01/18/19 22:26 3.4 g/dL (3.5-5.7) L 01/19/19 03:29 3.8 g/dL (2.4-3.5) H 01/18/19 11:25 1.0 (1.1-2.2) L 01/19/19 03:29 LDL Cholesterol, Calc 109 mg/dL (0-99) H 01/19/19 03:29 500 mg/dL (Normal) H 01/18/19 15:30 15 mg/dL (Negative) H 01/18/19 15:30 Consult Discharge Plan - Plan Referrals: Venessa Vides MD [Primary Care Provider] - 02/22/19 10:00 am (You have been placed on the waiting list with your primary care office for a sooner appointment. The office will contact you at home. Thank you. ) <Gordon Hoover I - Last Filed: 01/20/19 15:38> Date of Encounter: 01/20/19 Assessment and Plan (1) CVA (cerebral vascular accident) Current Visit: Yes Status: Acute I have personally performed a face to face diagnostic evaluation, including HPI, EXAM, which is included in the Assesment and plan, which was discussed with Al Story CNP, I agree with the above outlined documentation. Initially patient remained stable so far no new deficit will follow the result of echo and carotid especially to make sure there is no carotid stenosis, in the meantime continue on antiplatelet therapy, follow PT recommendations Gordon Hoover MD. 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 (2) Vertebral artery occlusion Current Visit: Yes Status: Acute Objective - Constitutional Vitals: Temp Pulse Resp BP Pulse Ox 98.7 F 77 16 178/72 95 01/20/19 15:21 01/20/19 15:21 01/20/19 15:21 01/20/19 15:21 01/20/19 15:21 Results - Laboratory Findings CBC and BMP: 01/20/19 01:08 01/20/19 01:08 Abnormal lab findings: Abnormal lab results Hgb 10.5 g/dL (11.5-15.4) L 01/20/19 01:08 Hct 33.9 % (35.3-44.9) L 01/20/19 01:08 MCH 26.4 pg (28.0-33.3) L 01/20/19 01:08 MCHC 31.0 g/dL (31.6-35.5) L 01/20/19 01:08 RDW 14.9 % (11.5-14.5) H 01/20/19 01:08 9.3 K/mcL (1.6-8.9) H 01/18/19 11:25 Sodium 135 mEq/L (136-145) L 01/18/19 11:25 BUN 7 mg/dL (8-23) L 01/20/19 01:08 Glucose 146 mg/dL (70-105) H 01/20/19 01:08 POC Glucose 170 mg/dL (70-99) H 01/19/19 19:23 7.9 % (-5.6) H 01/18/19 22:26 3.4 g/dL (3.5-5.7) L 01/19/19 03:29 3.8 g/dL (2.4-3.5) H 01/18/19 11:25 1.0 (1.1-2.2) L 01/19/19 03:29 LDL Cholesterol, Calc 109 mg/dL (0-99) H 01/19/19 03:29 500 mg/dL (Normal) H 01/18/19 15:30 15 mg/dL (Negative) H 01/18/19 15:30
[2019-01-20] MEDS: *HR* Labetalol 20 MG/4 ML SYRINGE IVP PRN ×2 (09:58→20:32)
--- NOTE | 2019-01-20 10:50 | General Surgery Consult Note ---
Date of Encounter: 01/20/19 Time of Encounter: 10:45 Assessment and Plan (1) Abscess of right axilla Current Visit: Yes Status: Chronic s/p office treatment after the area spontaneously opened and began draining 01/04/[address] Spence. [facility] has been packing the wound. Pt states they do not seem to be putting less packing in each time. She was supposed to follow up in the office in two weeks. She states the area is significantly improved. Drainage has decreased. Per record review culture was obtained yesterday per primary service and is pending. Continue local wound care. Follow-up in office with Dr. Spence in one week. Surgery will sign off at this time. History of Present Illness Consult date: 01/20/19 (Dr. Amol Spence) Reason for consult: wound care Requesting physician: Isabelle Crockett History of present illness: Past medical, surgical, social, and family history has been reviewed with patient and chart review. Surgery is consulted for wound care regarding right axillary abscess. Pt is well known to Dr. Spence. She was last seen in the office of 01/04/2019 at which time she was noted to have finished radiation treatment and developed a seroma in her right breast. The area spontaneously opened immediately can draining large amount of fluid. The area was packed with 1/4 inch playing packing. An ultrasound was obtained prior to being seen in the office which noted no acute abscess. She was recommended to follow-up in approximately 2 weeks. She presented to the emergency department on 01/19/2019 with neurologic symptoms. Surgery was consulted for recommendations of her wound care which is unrelated to her admission. She denies fever, chills, worsening discomfort, changes in drainage, redness, swelling, or foul odor. She endorses packing in the area and continued yellow drainage. Past Med Surg Social Fam HX - Past Medical History Source: patient, old records reviewed Medical history: cancer, CHF, diabetes, GERD, hypertension Additional medical history: OSTEOPENIA. URINARY FREQUENCY/INCONTINENCE. DIVERTICULOSIS. RIGHT BREAST CA Psychiatric history: no psych history - Past Surgical History Surgical History: hysterectomy, other Additional surgical history: sinus sx, right ankle break and repair, tubal - Social History Smoking Status: Former smoker Smokeless Tobacco Status: No Alcohol use: none Drug use: none - Family History Mother Adopted: No Family Member Ethnicity: Non- Living Status: Hx Family Cardiac Disorders: Yes Hx Family Respiratory Disorders: No Hx Family Cancer: Yes Hx Family GI Disorders: No Hx Family Genitourinary Disorders: No Hx Family Endocrine Disorder: No Hx Family Musculoskeletal Disorders: No Hx Family Neuromuscular Disorders: No Hx Family Neurologic Disorders: No Hx Family HEENT Disorders: No Hx Family Autoimmune Disorders: No Hx Family Reproductive Disorders: No Hx Family Psychosocial Disorders: No Hx Family Medical Disorders: No Father Adopted: Yes Family Member Ethnicity: Non- Living Status: Hx Family Cardiac Disorders: Yes Hx Family Respiratory Disorders: No Hx Family Cancer: Yes Hx Family GI Disorders: No Hx Family Genitourinary Disorders: No Hx Family Endocrine Disorder: No Hx Family Musculoskeletal Disorders: No Hx Family Neuromuscular Disorders: No Hx Family Neurologic Disorders: No Hx Family HEENT Disorders: No Hx Family Autoimmune Disorders: No Hx Family Reproductive Disorders: No Hx Family Psychosocial Disorders: No Medications and Allergies Amlodipine Besylate 10 mg PO HS 12/12/15 [History] Glyburide/Metformin HCl [Glucovance 5-500 mg Tablet] 2 tab PO BID 12/12/15 [History] Levothyroxine [Synthroid] 25 mcg PO DAILY 12/12/15 [History] Omeprazole [PriLOSEC] 40 mg PO DAILY 12/12/15 [History] Naproxen Sodium [Aleve] 1 tab PO Q12HR PRN 09/03/18 [History] Docusate [Colace] 1 cap PO DAILY PRN 09/30/18 [History] Anastrozole [Arimidex] 1 mg PO DAILY 30 Days #30 tablet 11/03/18 [Rx] Calcium Carbonate/Vitamin D3 [Calcium 500 + Vit D Caplet] 2 each PO DAILY #60 tablet 11/03/18 [Rx] Mv W-Ca/Iron/FA/Lutein/Hrb#179 [Servando Multivit For Women Caplet] 1 tab PO DAILY 01/18/19 [History] Allergy/AdvReac Type Severity Reaction Status Date / Time Sulfa (Sulfonamide Allergy Intermediate SKIN SORES Verified 01/18/19 11:08 Antibiotics) hydrocodone [From Vicodin] AdvReac Mild Itching Verified 01/18/19 11:08 hydrochlorothiazide AdvReac Unknown DECREASED Verified 01/18/19 11:08 BP codeine AdvReac Nausea Verified 01/18/19 11:08 lisinopril AdvReac DECREASED Verified 01/18/19 11:08 BP Review of Systems All systems PM: The remainder of the systems were reviewed and are negative General Surgery Exam Initial Vital Signs Temp Pulse Resp BP Pulse Ox 98.1 F 94 20 189/94 96 01/18/19 11:09 01/18/19 11:09 01/18/19 11:09 01/18/19 11:09 01/18/19 11:09 - General physical appearance well nourished, no distress - Respiratory normal expansion, clear to auscultation - Cardiovascular Cardiovascular exam: Present: RRR - Abdomen Abdomen general surgery: Present: bowel sounds present, soft, non tender - Integumentary Integumentary general surgery: Present: other (right axillary area is with aprox 1 cm openeing. Packing is in place. Yellow drainage on dressing. No induration, erythema, or purulence noted.) - Psychiatric Psychiatric general surgery: Present: appropriate, oriented to person, oriented to place, oriented to time, speech is normal, memory intact Exam Initial Vital Signs Temp Pulse Resp BP Pulse Ox 98.1 F 94 20 189/94 96 01/18/19 11:09 01/18/19 11:09 01/18/19 11:09 01/18/19 11:09 01/18/19 11:09 Results - Labs 01/20/19 01:08 01/20/19 01:08 Abnormal lab results Hgb 10.5 g/dL (11.5-15.4) L 01/20/19 01:08 Hct 33.9 % (35.3-44.9) L 01/20/19 01:08 MCH 26.4 pg (28.0-33.3) L 01/20/19 01:08 MCHC 31.0 g/dL (31.6-35.5) L 01/20/19 01:08 RDW 14.9 % (11.5-14.5) H 01/20/19 01:08 9.3 K/mcL (1.6-8.9) H 01/18/19 11:25 Sodium 135 mEq/L (136-145) L 01/18/19 11:25 BUN 7 mg/dL (8-23) L 01/20/19 01:08 Glucose 146 mg/dL (70-105) H 01/20/19 01:08 POC Glucose 170 mg/dL (70-99) H 01/19/19 19:23 7.9 % (-5.6) H 01/18/19 22:26 3.4 g/dL (3.5-5.7) L 01/19/19 03:29 3.8 g/dL (2.4-3.5) H 01/18/19 11:25 1.0 (1.1-2.2) L 01/19/19 03:29 LDL Cholesterol, Calc 109 mg/dL (0-99) H 01/19/19 03:29 500 mg/dL (Normal) H 01/18/19 15:30 15 mg/dL (Negative) H 01/18/19 15:30 Diabetes panel 01/20/19 Range/Units 01:08 Sodium 138 (136-145) mEq/L Potassium 3.6 (3.5-5.1) mEq/L Chloride 104 (98-107) mEq/L Carbon Dioxide 26 (23-29) mEq/L BUN 7 L (8-23) mg/dL Creatinine 0.71 (0.60-1.20) mg/dL Glucose 146 H (70-105) mg/dL Calcium 9.0 (8.6-10.3) mg/dL Calcium panel 01/20/19 Range/Units 01:08 Calcium 9.0 (8.6-10.3) mg/dL Pituitary panel 01/20/19 Range/Units 01:08 Sodium 138 (136-145) mEq/L Potassium 3.6 (3.5-5.1) mEq/L Chloride 104 (98-107) mEq/L Carbon Dioxide 26 (23-29) mEq/L BUN 7 L (8-23) mg/dL Creatinine 0.71 (0.60-1.20) mg/dL Glucose 146 H (70-105) mg/dL Calcium 9.0 (8.6-10.3) mg/dL Adrenal panel 01/20/19 Range/Units 01:08 Sodium 138 (136-145) mEq/L Potassium 3.6 (3.5-5.1) mEq/L Chloride 104 (98-107) mEq/L Carbon Dioxide 26 (23-29) mEq/L BUN 7 L (8-23) mg/dL Creatinine 0.71 (0.60-1.20) mg/dL Glucose 146 H (70-105) mg/dL Calcium 9.0 (8.6-10.3) mg/dL All other labs normal. Consult Discharge Plan - Plan Referrals: Venessa Vides MD [Primary Care Provider] - 02/22/19 10:00 am (You have been placed on the waiting list with your primary care office for a sooner appointment. The office will contact you at home. Thank you. )
--- NOTE | 2019-01-20 11:04 | Internal Med Progress Note ---
Hospitalist Progress Note - Encounter Date of Encounter: 01/20/19 Time of Encounter: 10:59 - Subjective Interval History: Pt seen and examined in the room. Reported spotted vaginal bleeding overnight. No fever, chills, or night sweats. Mild headache but no numbness or weakness. - Exam Vitals: Temp Pulse Resp BP Pulse Ox 98.4 F 76 16 218/82 94 01/20/19 07:46 01/20/19 07:46 01/20/19 07:46 01/20/19 07:46 01/20/19 07:46 Exam: PHYSICAL EXAMINATION: GENERAL APPEARANCE: The patient is alert, oriented and in no acute distress. HEENT: Head is normocephalic. The sinuses are nontender. Pupils are equal and reactive. The nares are patent. Oropharynx clear without lesions. NECK: Supple without lymphadenopathy. HEART: Regular rate and rhythm. LUNGS: No crackles or wheezes are heard. ABDOMEN: Soft, nontender, nondistended with good bowel sounds heard. Inguinal area is normal. EXTREMITIES: Without cyanosis, clubbing or edema. NEUROLOGICAL: Gross nonfocal. SKIN: Warm and dry without any rash. - Assessment and Plan (1) CVA (cerebral vascular accident) Current Visit: Yes Status: Acute Assessment and Plan: 01/19 73-year-old female with history of hypertension, hyperlipidemia, and diabetes presented with 5 days of vertigo, weakness, and ataxia. 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 MRA of brain showed absence of right-sided vertebral artery and multiple stenosis on the posterior circulation. Echocardiogram showed a preserved ejection fraction and mild valvular disease. Labs showed an elevated LDL. Patient BP was notable to be elevated since admission. - Telemetry showed a sinus rhythm currently, continue telemetry monitoring to rule out paroxysmal atrial fibrillation. - Started patient on aspirin and statins. Permissive hypertension for the first 24 hours, will treat hypertension tomorrow. - Neurology consulted and appreciate help. 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 ASA and plavix started, will stop asa tomorrow, concerning vaginal bleeding. BP severely elevated, BP meds adjusted, Coreg, Losartan, and hydralazine started. Labetalol as needed for SBP>180. PT/OT recommended inpt rehab, plan of dc tomorrow if BP is under control. (2) DM II (diabetes mellitus, type II), controlled Current Visit: Yes Status: Chronic Assessment and Plan: Hemoglobin A1c 7.9, home medications including glipizide and metformin. Discussed with the patient about goal of A1c and possible change of treatment based on her CVA. Continue insulin sliding scale. (3) HTN (hypertension) Current Visit: No Status: Acute Assessment and Plan: same as above. (4) Hypothyroidism Current Visit: No Status: Chronic Assessment and Plan: continue home meds. (5) Abscess of right axilla Current Visit: Yes Status: Chronic Assessment and Plan: Patient recently completed antibiotics. pending culture of wound. Surgery consult. (6) Hyperlipidemia Current Visit: Yes Status: Acute Assessment and Plan: statin started. (7) DVT prophylaxis Current Visit: Yes Status: Acute Assessment and Plan: 1. Heparin SQ. - Time Spent with Patient Total time spent is greater than 50% in coordination of care (as documented) at patient's floor/unit and/or counseling patient: Greater than 35 minutes Plan of Care Discussed with: patient Internal Medicine: Result - Labs CBC & Chem 7: 01/20/19 01:08 01/20/19 01:08 Labs: Short CBC 01/20/19 Range/Units 01:08 WBC 6.7 (4.3-11.1) K/mcL Hgb 10.5 L (11.5-15.4) g/dL Hct 33.9 L (35.3-44.9) % Plt Count 261 (140-400) K/mcL BMP 01/20/19 01:08 Sodium 138 Potassium 3.6 Chloride 104 Carbon Dioxide 26 BUN 7 L Creatinine 0.71 Glucose 146 H Calcium 9.0 - ABG Interpretation ABG results: PT/INR, D-dimer PT 11.9 Seconds (9.4-12.1) 01/19/19 03:29 - Impressions Impressions Head MRA 01/19/19 09:52 IMPRESSION: Absence of signal in the right vertebral artery, likely related to occlusion. 70% focal stenosis at the distal V4 segment of the left vertebral artery. 40% focal stenosis in the proximal P2 segment of the left CONSTRUCTION LINEMAN. 90% focal stenosis at the origin of the P2 segment of the right CONSTRUCTION LINEMAN. D/ / Isma Can MD / Isma Can MD Interpreting Provider: Imsa Can MD Consult Discharge Plan - Plan Referrals: Venessa Vides MD [Primary Care Provider] - 02/22/19 10:00 am (You have been placed on the waiting list with your primary care office for a sooner appointment. The office will contact you at home. Thank you. 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 (2) DM II (diabetes mellitus, type II), controlled Qualifiers: Diabetes mellitus rodent exterminator insulin use: without longterm use Diabetes mellitus complication status: without complication Qualified Code(s): E11.9 - Type 2 diabetes mellitus without complications (3) HTN (hypertension) Qualifiers: Hypertension type: unspecified Qualified Code(s): I10 - Essential (primary) hypertension (4) Hypothyroidism Qualifiers: Hypothyroidism type: acquired Qualified Code(s): E03.9 - Hypothyroidism, unspecified (6) Hyperlipidemia Qualifiers: Hyperlipidemia type: unspecified Qualified Code(s): E78.5 - Hyperlipidemia, unspecified
[2019-01-20] MEDS: hydrALAZINE 25 MG TABLET PO SCH ×3 (11:54→23:58)
[2019-01-21] MEDS: *HR* Labetalol 20 MG/4 ML SYRINGE IVP PRN (04:41)
[2019-01-21 04:57] LABS: Hematocrit 33.7 % (35.3-44.9); Hemoglobin 10.8 g/dL (11.5-15.4); Mean Corpuscular Hemoglobin 26.9 pg (28.0-33.3); Mean Corpuscular Volume 83.8 fL (83.0-100.0); Mean Platelet Volume 11.2 fL (9.4-12.4); Platelet Count 260 K/mcL (140-400); Red Blood Count 4.02 M/mcL (3.82-4.97); Red Cell Distribution Width 14.8 % (11.5-14.5)
[2019-01-21 05:16] LABS: BUN/Creatinine Ratio 10 (6-26); Blood Urea Nitrogen 9 mg/dL (8-23); Calcium 9.4 mg/dL (8.6-10.3); Carbon Dioxide 28 mEq/L (23-29); Chloride 105 mEq/L (98-107); Glucose 170 mg/dL (70-105); Osmolality,Calculated 289 (280-300); Potassium 3.6 mEq/L (3.5-5.1); Sodium 138 mEq/L (136-145); eGFR For Non-African Americans > 60 (> 60)
[2019-01-21] MEDS: hydrALAZINE 25 MG TABLET PO SCH ×3 (06:03→20:39)
[2019-01-21] MEDS: Levothyroxine 25 MCG TABLET PO SCH (06:03)
[2019-01-21] MEDS: *HR* Heparin 5,000 UNIT/ML VIAL SQ SCH ×2 (06:04→17:40)
[2019-01-21] MEDS: Aspirin Enteric Coated 81 MG Tablet PO SCH (08:39)
[2019-01-21] MEDS: Multivit/Ca/Min/Fe/FA 1 TAB TABLET PO SCH (08:40)
[2019-01-21] MEDS: Insulin LISPRO 300 UNITS/3 ML VIAL SQ SCH ×4 (08:40→20:45)
[2019-01-21] MEDS: Anastrozole 1 MG TABLET PO SCH (08:40)
--- NOTE | 2019-01-21 09:29 | Internal Med Progress Note ---
Hospitalist Progress Note - Encounter Date of Encounter: 01/21/19 Time of Encounter: 09:27 - Subjective Interval History: Patient is seen and examined in the room. She is concerned that her blood pressure remained high even with medicine. Reported unsteady gait, right side worse than left side, and he needs assistance while using the bathroom. Reported vaginal bleeding has improved. Denies headache, weakness, numbness or tingling. - Exam Vitals: Temp Pulse Resp BP Pulse Ox 98.3 F 78 17 189/72 96 01/21/19 07:25 01/21/19 07:25 01/21/19 07:25 01/21/19 07:25 01/21/19 07:25 Exam: PHYSICAL EXAMINATION: GENERAL APPEARANCE: The patient is alert, oriented and in no acute distress. HEENT: Head is normocephalic. The sinuses are nontender. Pupils are equal and reactive. The nares are patent. Oropharynx clear without lesions. NECK: Supple without lymphadenopathy. HEART: Regular rate and rhythm. LUNGS: No crackles or wheezes are heard. ABDOMEN: Soft, nontender, nondistended with good bowel sounds heard. Inguinal area is normal. EXTREMITIES: Without cyanosis, clubbing or edema. NEUROLOGICAL: Gross nonfocal. SKIN: Warm and dry without any rash. - Assessment and Plan (1) CVA (cerebral vascular accident) Current Visit: Yes Status: Acute Assessment and Plan: 01/19 73-year-old female with history of hypertension, hyperlipidemia, and diabetes presented with 5 days of vertigo, weakness, and ataxia. 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 MRA of brain showed absence of right-sided vertebral artery and multiple st enosis on the posterior circulation. Echocardiogram showed a preserved ejection fraction and mild valvular disease. Labs showed an elevated LDL. Patient BP was notable to be elevated since admission. - Telemetry showed a sinus rhythm currently, continue telemetry monitoring to rule out paroxysmal atrial fibrillation. - Started patient on aspirin and statins. Permissive hypertension for the first 24 hours, will treat hypertension tomorrow. - Neurology consulted and appreciate help. 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 ASA and plavix started, will stop asa tomorrow, concerning vaginal bleeding. BP severely elevated, BP meds adjusted, Coreg, Losartan, and hydralazine started. Labetalol as needed for SBP>180. PT/OT recommended inpt rehab, plan of dc tomorrow if BP is under control. 01/21 Explained to the patient that current persistent hypertension is likely caused by the physiological response of acute occlusion of right vertebral/acute CVA. BP medicine has been adjusted, instructed the patient that the response might be slow. There is no indication for workup of secondary hypertension at this point. Chlorthalidone was added. Surgery consulted and recommended outpatient follow-up for recent breast cancer surgery. Anticipated discharge to inpatient rehabilitation, social services manager following, appreciate help. (2) DM II (diabetes mellitus, type II), controlled Current Visit: Yes Status: Chronic Assessment and Plan: Hemoglobin A1c 7.9, home medications including glipizide and metformin. Discussed with the patient about goal of A1c and possible change of treatment based on her CVA. Continue insulin sliding scale. (3) HTN (hypertension) Current Visit: No Status: Acute Assessment and Plan: same as above. (4) Hypothyroidism Current Visit: No Status: Chronic Assessment and Plan: continue home meds. (5) Abscess of right axilla Current Visit: Yes Status: Chronic Assessment and Plan: Patient recently completed antibiotics. Wound culture no growth. Surgery consult, recommended outpatient follow-up.. (6) Hyperlipidemia Current Visit: Yes Status: Acute Assessment and Plan: statin started. (7) Vertebral artery occlusion Current Visit: Yes Status: Acute Assessment and Plan: Imaging studies showed right vertebral artery complete occlusion, management as above. (8) DVT prophylaxis Current Visit: Yes Status: Acute Assessment and Plan: 1. Heparin SQ. - Time Spent with Patient Total time spent is greater than 50% in coordination of care (as documented) at patient's floor/unit and/or counseling patient: Greater than 35 minutes Plan of Care Discussed with: patient Internal Medicine: Result - Labs CBC & Chem 7: 01/21/19 04:10 01/21/19 04:10 Labs: Short CBC 01/21/19 Range/Units 04:10 WBC 6.6 (4.3-11.1) K/mcL Hgb 10.8 L (11.5-15.4) g/dL Hct 33.7 L (35.3-44.9) % Plt Count 260 (140-400) K/mcL BMP 01/21/19 04:10 Sodium 138 Potassium 3.6 Chloride 105 Carbon Dioxide 28 BUN 9 Creatinine 0.89 Glucose 170 H Calcium 9.4 - ABG Interpretation ABG results: PT/INR, D-dimer PT 11.9 Seconds (9.4-12.1) 01/19/19 03:29 Consult Discharge Plan - Plan Referrals: Venessa Vides MD [Primary Care Provider] - 02/22/19 10:00 am (You have been placed on the waiting list with your primary care office for a sooner appointme nt. The office will contact you at home. Thank you. 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 (2) DM II (diabetes mellitus, type II), controlled Qualifiers: Diabetes mellitus termite treater helper insulin use: without termite treater helper use Diabetes mellitus complication status: without complication Qualified Code(s): E11.9 - Type 2 diabetes mellitus without complications (3) HTN (hypertension) Qualifiers: Hypertension type: unspecified Qualified Code(s): I10 - Essential (primary) hypertension (4) Hypothyroidism Qualifiers: Hypothyroidism type: acquired Qualified Code(s): E03.9 - Hypothyroidism, unspecified (6) Hyperlipidemia Qualifiers: Hyperlipidemia type: unspecified Qualified Code(s): E78.5 - Hyperlipidemia, unspecified (7) Vertebral artery occlusion Qualifiers: Laterality: right Qualified Code(s): I65.01 - Occlusion and stenosis of right vertebral artery
--- NOTE | 2019-01-21 10:28 | Neurology Progress Note ---
<Al Story - Last Filed: 01/21/19 10:25> Date of Encounter: 01/21/19 Time of Encounter: 10:26 Assessment and Plan (1) CVA (cerebral vascular accident) Current Visit: Yes Status: Acute Clinically, the patient remains stable. There are no new neurological deficits on exam and the exam remains nonfocal and nonlateralizing. Briefly, she is a 73-year-old female S/P acute CVA to the posterior circulation. Neuroimaging revealed multiple cues small bilateral cerebellar infarcts and right vertebral artery occlusion as well as severe 70% stenosis in the distal V4 segment of the LVAD and 90% stenosis origin of P2 segment of the right MANAGER LINUX. She also has 40% stenosis of the proximal P2 segment of the left MANAGER LINUX. Unfortunately, given the stenosed right vertebral artery the patient would be a poor candidate for vascular intervention. Continue with medical management with daily Plavix and statin medications. Discussed lifestyle modifications, blood glucose and blood pressure control. PT/OT recommending inpatient rehabilitation for ataxia. She is stable to SD from a neurology perspective. Neurology will sign off at this time. 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 Originally she presented with ataxia and falls. Throughout the course of her hospital stay she has remained stable without any new neurological deficits. Discussed plan of care including the addition of Plavix. Further, discussed need for neurology follow-up in 7-10 days of discharge. Stroke education provided and patient denies any further questions at this time. Plan is to discharge to inpatient rehabilitation. Objective - Constitutional Vitals: Temp Pulse Resp BP Pulse Ox 98.3 F 78 17 189/72 96 01/21/19 07:25 01/21/19 07:25 01/21/19 07:25 01/21/19 07:25 01/21/19 07:25 Exam: Examination: General Examination: *CONSTITUTIONAL: Alert and oriented x3, no acute distress, *GENERAL APPEARANCE OF PATIENT obese elderly female *EYES: pupils equal, round, reactive to light and accommodation, conjunctiva clear without masses or ulcerations, fundi normal. *CARDIOVASCULAR RRR, S1, S2, no peripheral edema, distal temperature normal, dorsalis pedis pulses normal. See vital signs Musculoskeletal: *GAIT AND STATION ataxia persists with standing and gait remains unsteady. *ASSESSMENT OF MUSCLE STRENGTH IN THE UPPER AND LOWER EXTREMITIES bilateral deltoid, bicep, tricep, bottling line operator strength, hip flexors ,anterior tibialis, dorsoflexion of the foot 4/5 *MUSCLE TONE IN THE UPPER AND LOWER EXTREMITIES normal. No abnormal movements, fasciculations or atrophy identified. Neurological: *ORIENTATION to person, situation, time and place *RECURRENT AND REMOTE MEMORY intact *ATTENTION AND CONCENTRATION are normal *LANGUAGE FUNCTION no significant aphasia or dysarthia was noted. *FUND OF KNOWLEDGE aware of current events, past history, vocabulary *MENTAL attention span and concentration normal. *CN II optic fundi were normal, no papilledema noted. *CN III,IV, PERRLA extraocular eye movements were full, no nystagmus and no ptosis noted. *CN V shows normal sensation and jaw opens symmetrically. *CN VII shows normal facial movement symmetrically, upper and lower bilaterally. *CN VIII shows no significant hearing loss on exam *CN IX,,X palate elevated symmetrically *CN XI normal strength in the sternocleidomastoid muscles, symmetrical shoulder shrugging. *CN XII tongue protruded in the midline, with normal strength and movement. *SENSORY EXAMINATION light touch intact *REFLEXES: deep tendon reflexes were normal and symmetrical , grade 3/4 diffusely, no pathological reflexes were noted. *CEREBELLAR TESTING minimal dysmetria with finger to nose exam *PAIN LEVEL 0 Results - Laboratory Findings CBC and BMP: 01/21/19 04:10 01/21/19 04:10 Abnormal lab findings: Abnormal lab results Hgb 10.8 g/dL (11.5-15.4) L 01/21/19 04:10 Hct 33.7 % (35.3-44.9) L 01/21/19 04:10 MCH 26.9 pg (28.0-33.3) L 01/21/19 04:10 MCHC 31.0 g/dL (31.6-35.5) L 01/20/19 01:08 RDW 14.8 % (11.5-14.5) H 01/21/19 04:10 9.3 K/mcL (1.6-8.9) H 01/18/19 11:25 Sodium 135 mEq/L (136-145) L 01/18/19 11:25 BUN 7 mg/dL (8-23) L 01/20/19 01:08 Glucose 170 mg/dL (70-105) H 01/21/19 04:10 POC Glucose 200 mg/dL (70-99) H 01/20/19 16:38 7.9 % (-5.6) H 01/18/19 22:26 3.4 g/dL (3.5-5.7) L 01/19/19 03:29 3.8 g/dL (2.4-3.5) H 01/18/19 11:25 1.0 (1.1-2.2) L 01/19/19 03:29 LDL Cholesterol, Calc 109 mg/dL (0-99) H 01/19/19 03:29 500 mg/dL (Normal) H 01/18/19 15:30 15 mg/dL (Negative) H 01/18/19 15:30 Consult Discharge Plan - Plan Referrals: Venessa Vides MD [Primary Care Provider] - 02/22/19 10:00 am (You have been placed on the waiting list with your primary care office for a sooner appointment. The office will contact you at home. Thank you. ) Nenita Enamorado MD [Partnered Physician] - (Appointment has been requested. Our offices will call with an appointment time and date.) <Gordon Hoover I - Last Filed: 01/21/19 11:05> Date of Encounter: 01/21/19 Assessment and Plan (1) CVA (cerebral vascular accident) Current Visit: Yes Status: Acute I have personally performed a face to face diagnostic evaluation, including HPI, EXAM, which is included in the Assesment and plan, which was discussed with Al Story CNP, I agree with the above outlined documentation. Overall is stable explained to the patient that she may still be dizzy and may continue to have problem with her gait and balance due to the fact that she has multiple cerebellar infarct and as predominantly the main symptoms from it. Does understand and acknowledges it Gordon Hoover MD. 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 (2) Vertebral artery occlusion Current Visit: Yes Status: Acute Qualifiers: Laterality: right Qualified Code(s): I65.01 - Occlusion and stenosis of right vertebral artery Objective - Constitutional Vitals: Temp Pulse Resp BP Pulse Ox 98.3 F 78 17 189/72 96 01/21/19 07:25 01/21/19 07:25 01/21/19 07:25 01/21/19 07:25 01/21/19 07:25 Results - Laboratory Findings CBC and BMP: 01/21/19 04:10 01/21/19 04:10 Abnormal lab findings: Abnormal lab results Hgb 10.8 g/dL (11.5-15.4) L 01/21/19 04:10 Hct 33.7 % (35.3-44.9) L 01/21/19 04:10 MCH 26.9 pg (28.0-33.3) L 01/21/19 04:10 MCHC 31.0 g/dL (31.6-35.5) L 01/20/19 01:08 RDW 14.8 % (11.5-14.5) H 01/21/19 04:10 9.3 K/mcL (1.6-8.9) H 01/18/19 11:25 Sodium 135 mEq/L (136-145) L 01/18/19 11:25 BUN 7 mg/dL (8-23) L 01/20/19 01:08 Glucose 170 mg/dL (70-105) H 01/21/19 04:10 POC Glucose 200 mg/dL (70-99) H 01/20/19 16:38 7.9 % (-5.6) H 01/18/19 22:26 3.4 g/dL (3.5-5.7) L 01/19/19 03:29 3.8 g/dL (2.4-3.5) H 01/18/19 11:25 1.0 (1.1-2.2) L 01/19/19 03:29 LDL Cholesterol, Calc 109 mg/dL (0-99) H 01/19/19 03:29 500 mg/dL (Normal) H 01/18/19 15:30 15 mg/dL (Negative) H 01/18/19 15:30
[2019-01-21] MEDS: Ondansetron 4 MG/2 ML VIAL IVP PRN ×2 (11:16→21:51)
[2019-01-22] MEDS: Levothyroxine 25 MCG TABLET PO SCH (05:52)
[2019-01-22] MEDS: *HR* Heparin 5,000 UNIT/ML VIAL SQ SCH (05:53)
[2019-01-22 08:00] VITALS: BP 184/82
[2019-01-22] MEDS: Multivit/Ca/Min/Fe/FA 1 TAB TABLET PO SCH (08:50)
[2019-01-22] MEDS: Anastrozole 1 MG TABLET PO SCH (08:50)
[2019-01-22] MEDS: hydrALAZINE 25 MG TABLET PO SCH (08:51)
[2019-01-22] MEDS: Aspirin Enteric Coated 81 MG Tablet PO SCH (08:51)
[2019-01-22] MEDS: Insulin LISPRO 300 UNITS/3 ML VIAL SQ SCH (08:52)
[2019-01-22] MEDS: Ondansetron 4 MG/2 ML VIAL IVP PRN (09:00)
--- NOTE | 2019-01-22 09:41 | Physician Discharge Referral ---
ExtendedCare Referral Info Provider in Charge after Transfer: Other Institutional Level of Care: Skilled - Diagnosis (1) CVA (cerebral vascular accident) Priority: Primary Status: Acute (2) DM II (diabetes mellitus, type II), controlled Priority: Secondary Status: Chronic (3) HTN (hypertension) Priority: Secondary Status: Acute (4) Hypothyroidism Priority: Secondary Status: Chronic (5) Abscess of right axilla Priority: Secondary Status: Chronic (6) Hyperlipidemia Priority: Primary Status: Acute (7) Vertebral artery occlusion Priority: Primary Status: Acute (8) DVT prophylaxis Priority: Primary Status: Acute Prognosis: Fair Aware of Diagnosis: Patient, Family Aware of Prognosis: Patient, Family - Transfer Medications Home Medications: Amlodipine Besylate 10 mg PO HS 12/12/15 [History] Glyburide/Metformin HCl [Glucovance 5-500 mg Tablet] 2 tab PO BID 12/12/15 [History] Levothyroxine [Synthroid] 25 mcg PO DAILY 12/12/15 [History] Omeprazole [PriLOSEC] 40 mg PO DAILY 12/12/15 [History] Naproxen Sodium [Aleve] 1 tab PO Q12HR PRN 09/03/18 [History] Docusate [Colace] 1 cap PO DAILY PRN 09/30/18 [History] Anastrozole [Arimidex] 1 mg PO DAILY 30 Days #30 tablet 11/03/18 [Rx] Calcium Carbonate/Vitamin D3 [Calcium 500 + Vit D Caplet] 2 each PO DAILY #60 tablet 11/03/18 [Rx] Mv W-Ca/Iron/FA/Lutein/Hrb#179 [Serv[employer] Multivit For Women Caplet] 1 tab PO DAILY 01/18/19 [History] Allergies/Adverse Reactions: Allergy/AdvReac Type Severity Reaction Status Date / Time Sulfa (Sulfonamide Allergy Intermediate SKIN SORES Verified 01/18/19 11:08 Antibiotics) hydrocodone [From Vicodin] AdvReac Mild Itching Verified 01/18/19 11:08 hydrochlorothiazide AdvReac Unknown DECREASED Verified 01/18/19 11:08 BP codeine AdvReac Nausea Verified 01/18/19 11:08 lisinopril AdvReac DECREASED Verified 01/18/19 11:08 BP - Respiratory Orders Smoking Cessation: Smoking cessation has been advised. For more information, call the [place] Tobacco Quit Line at 2-814-ROGI-NOW. - Advance Directives Code Status: Full Code CERTIFICATION: I certify that the transfer of the above named patient to an Extended Care Facility is necessary for the continuing treatment of the diagnosis listed. The above information is true and accurate reflection of patient's current condition. Confidential - Redisclosure prohibited without a patient's written consent.
--- NOTE | 2019-01-22 09:45 | Discharge Summary ---
- NOTES TO OUTPATIENT PROVIDER Notes to Outpatient Provider: f/u with PCP within 2 weeks. f/u with neurology within a month. 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 (2) DM II (diabetes mellitus, type II), controlled Priority: Secondary Status: Chronic Qualifiers: Diabetes mellitus fisher spear insulin use: without jail use Diabetes mellitus complication status: without complication Qualified Code(s): E11.9 - Type 2 diabetes mellitus without complications (3) HTN (hypertension) Priority: Secondary Status: Chronic Qualifiers: Hypertension type: unspecified Qualified Code(s): I10 - Essential (primary) hypertension (4) Hypothyroidism Priority: Secondary Status: Chronic Qualifiers: Hypothyroidism type: acquired Qualified Code(s): E03.9 - Hypothyroidism, unspecified (5) Abscess of right axilla Priority: Secondary Status: Chronic (6) Hyperlipidemia Priority: Primary Status: Acute Qualifiers: Hyperlipidemia type: unspecified Qualified Code(s): E78.5 - Hyperlipidemia, unspecified (7) Vertebral artery occlusion Priority: Primary Status: Acute Qualifiers: Laterality: right Qualified Code(s): I65.01 - Occlusion and stenosis of right vertebral artery (8) DVT prophylaxis Priority: Primary Status: Acute Hospital course: Ms. Saavedra is a 73 year old female who presents to the ER with complaints of nausea, vomiting, weakness, falling, and ataxia which started abruptly roughly 4 days ago. She was hopeful that her symptoms would resolve, but they persisted and she therefore came to ER for evaluation. Workup in ER was negative, but because of her inability to ambulate safely and falling risks, she was admitted to hospitalist service. Of note, she also has a draining wound/abscess of her right axilla. She recently finished antibiotics and has been following with Dr. Spence regarding this wound. The wound is at the site of her prior breast surgery several years ago from breast cancer. She denies any fevers, chills, or night sweats. Initial CT of head was negative for acute abnormalities. However, MRI of brain showed multiple acute CVA on bilateral cerebellum hemisphere. MRA of brain showed complete occlusion of right vertebral artery, multiple segmental stenosis involving left vertebral artery and the bilateral posterior cerebral artery. An echocardiogram has no intraventricular thrombosis all patent foramen ovale. Telemetry monitoring and the EKG did not reveal atrial fibrillation. The panel showed elevated LDL, patient was started on statins. Hemoglobin A1c was 9.1, patient was on insulin while in the hospital. Her blood pressure was severely elevated while in the hospital, blood pressure medication was adjusted based on current practice guideline. Losartan, hydralazine, Coreg, chlorthalidone were introduced. Her blood pressure was gradually decreased. Because of multiple critical segmental stenosis of posterior cerebral circulation, patient has very high risk of recurrent stroke. Aggressive risk factor reduction was discussed with patient in length which include better control of hypertension, diabetes, and cholesterol. Lifestyle modification including regular exercise, weight reduction, and eating healthy, was also discussed with patient. Due to ataxia and vertigo, PT/OT recommended inpatient rehabilitation. Patient is discharged to inpatient rehabilitation facility today. She will follow-up with PCP and neurology as scheduled. Discharge discussed with: patient Time spent discussing smoking cessation with patient: more than 10 minutes - Time Spent with Patient Total time spent providing and/or coordinating discharge services: Time spent: Greater than 30 minutes - Discharge Medications Prescriptions: New Clopidogrel [Plavix] 75 mg PO DAILY tablet Atorvastatin [Lipitor] 80 mg PO HS tablet Carvedilol [Coreg] 12.5 mg PO BIDWM tablet Losartan [Cozaar] 50 mg PO DAILY tablet hydrALAZINE [HydrALAZINE] 25 mg PO BID tablet Chlorthalidone 25 mg PO DAILY tablet Continued Glyburide/Metformin HCl [Glucovance 5-500 mg Tablet] 2 tab PO BID Levothyroxine [Synthroid] 25 mcg PO DAILY Omeprazole [PriLOSEC] 40 mg PO DAILY Docusate [Colace] 1 cap PO DAILY PRN PRN Reason: Constipation Anastrozole [Arimidex] 1 mg PO DAILY 30 Days #30 tablet Calcium Carbonate/Vitamin D3 [Calcium 500 + Vit D Caplet] 2 each PO DAILY #60 tablet Mv W-Ca/Iron/FA/Lutein/Hrb#179 [Servando Multivit For Women Caplet] 1 tab PO DAILY Discontinued Amlodipine Besylate 10 mg PO HS Naproxen Sodium [Aleve] 1 tab PO Q12HR PRN PRN Reason: Pain Home Medications: Glyburide/Metformin HCl [Glucovance 5-500 mg Tablet] 2 tab PO BID 12/12/15 [History] Levothyroxine [Synthroid] 25 mcg PO DAILY 12/12/15 [History] Omeprazole [PriLOSEC] 40 mg PO DAILY 12/12/15 [History] Docusate [Colace] 1 cap PO DAILY PRN 09/30/18 [History] Anastrozole [Arimidex] 1 mg PO DAILY 30 Days #30 tablet 11/03/18 [Rx] Calcium Carbonate/Vitamin D3 [Calcium 500 + Vit D Caplet] 2 each PO DAILY #60 tablet 11/03/18 [Rx] Mv W-Ca/Iron/FA/Lutein/Hrb#179 [Servando Multivit For Women Caplet] 1 tab PO DAILY 01/18/19 [History] Atorvastatin [Lipitor] 80 mg PO HS tablet 01/22/19 [Rx] Carvedilol [Coreg] 12.5 mg PO BIDWM tablet 01/22/19 [Rx] Chlorthalidone 25 mg PO DAILY tablet 01/22/19 [Rx] Clopidogrel [Plavix] 75 mg PO DAILY tablet 01/22/19 [Rx] Losartan [Cozaar] 50 mg PO DAILY tablet 01/22/19 [Rx] hydrALAZINE [HydrALAZINE] 25 mg PO BID tablet 01/22/19 [Rx] Allergies/Adverse Reactions: Allergy/AdvReac Type Severity Reaction Status Date / Time Sulfa (Sulfonamide Allergy Intermediate SKIN SORES Verified 01/18/19 11:08 Antibiotics) hydrocodone [From Vicodin] AdvReac Mild Itching Verified 01/18/19 11:08 hydrochlorothiazide AdvReac Unknown DECREASED Verified 01/18/19 11:08 BP codeine AdvReac Nausea Verified 01/18/19 11:08 lisinopril AdvReac DECREASED Verified 01/18/19 11:08 BP Date of admission: 01/19/19 15:55 Primary care physician: Venessa Vides MD Consults: 01/18/19 21:53 Consult to Wound Care [CONS] Routine Reason for Consult: right breast abscess/seroma requring packing Call Completed: No 01/19/19 09:53 Consult to Neurology [CONS] Routine Consulting Provider: Neurology [facility] Reason for Consult: cerebellum CVA Call Completed: Yes 01/19/19 09:54 Consult to Physical Therapy [CONS] Routine Comment: Evaluate, develop and implement POC Reason for Consult: DC planning Does patient have active BEDREST order?: No Is patient medically & hemodynamically stable?: Yes Patient assessed for mobility or mobilized this visit?: Yes OT [Consult to Occupational Therapy] [CONS] Routine Comment: Evaluate, develop and implement POC Reason for Consult: dc planning Does patient have active BEDREST order?: No Is patient medically & hemodynamically stable?: Yes Patient assessed for mobility or mobilized this visit?: Yes 01/19/19 11:50 Consult to Surgery [CONS] Routine Consulting Provider: Acute Care Surgery Reason for Consult: Breast cancer wound, Dr. Spence. Call Completed: Yes 01/20/19 08:44 Consult to Suppression Crew Leader [CONS] Routine Reason for SW Consult: PT/OT RECOMMEND IP SWING BED Anticipated date of discharge: 01/22/19 - Constitutional Vitals: Temp Pulse Resp BP Pulse Ox 97.2 F L 71 16 184/82 95 01/22/19 07:41 01/22/19 07:41 01/22/19 07:41 01/22/19 07:41 01/22/19 07:41 General appearance: Present: cooperative, A&O X 3, pleasant, no acute distress, answers questions appropriately Exam: PHYSICAL EXAMINATION: GENERAL APPEARANCE: The patient is alert, oriented and in no acute distress. HEENT: Head is normocephalic. The sinuses are nontender. Pupils are equal and reactive. The nares are patent. Oropharynx clear without lesions. NECK: Supple without lymphadenopathy. HEART: Regular rate and rhythm. LUNGS: No crackles or wheezes are heard. ABDOMEN: Soft, nontender, nondistended with good bowel sounds heard. Inguinal area is normal. EXTREMITIES: Without cyanosis, clubbing or edema. NEUROLOGICAL: Gross nonfocal. SKIN: Warm and dry without any rash. - Patient Status Disposition: Transfer Hospital Swing Bed Condition: Good Functional capacity at discharge: uses cane/walker Overall status at discharge: patient is progressing back to baseline - Discharge Instructions Follow Up With: Venessa Vides MD [Primary Care Provider] - 02/22/19 10:00 am (You have been placed on the waiting list with your primary care office for a sooner appointment. The office will contact you at home. Thank you. ) Nenita Enamorado MD [Partnered Physician] - (Appointment has been requested. Our offices will call with an appointment time and date.) - Diet and Activity Activity: increase activity as tolerated Diet: diabetic diet, low fat, low cholesterol, low salt diet
== END 2019-01-22 12:07 | disposition other institution (70) | DRG 65 ==
LOC: EMEROOARM 11:01 → 3BNU 11:01
PROVIDERS: ADMIT Student in an Organized Health Care Education/Training Program; ATTEND Student in an Organized Health Care Education/Training Program

== ENCOUNTER 2019-09-11 16:07 | Inpatient (IN) ==
[2019-09-11 17:12] LABS: Hematocrit 32.9 % (35.3-44.9); Hemoglobin 10.7 g/dL (11.5-15.4); Mean Corpuscular HGB Conc 32.5 g/dL (31.6-35.5); Mean Corpuscular Hemoglobin 28.9 pg (28.0-33.3); Mean Corpuscular Volume 88.9 fL (83.0-100.0); Mean Platelet Volume 10.9 fL (9.4-12.4); Platelet Count 211 K/mcL (140-400); Red Cell Distribution Width 13.9 % (11.5-14.5); White Blood Count 5.8 K/mcL (4.3-11.1)
[2019-09-11 17:18] LABS: Prothrombin Time 11.3 Seconds (9.4-12.1)
[2019-09-11 17:21] LABS: Activated Partial Thrombo Time 29.6 Seconds (26.0-36.0)
[2019-09-11 17:36] LABS: BUN/Creatinine Ratio 15 (6-26); Blood Urea Nitrogen 16 mg/dL (8-23); Carbon Dioxide 26 mEq/L (23-29); Chloride 101 mEq/L (98-107); Glucose 173 mg/dL (70-105); Osmolality,Calculated 289 (280-300); Potassium 4.1 mEq/L (3.5-5.1); Sodium 137 mEq/L (136-145); eGFR For African Americans > 60 (> 60); eGFR For Non-African Americans 51 (> 60)
[2019-09-11 17:37] LABS: Troponin I < 0.03 ng/mL (< 0.04)
[2019-09-11 18:00] LABS: Bilirubin,Urine Negative (Negative); Blood,Urine Negative (Negative); Clarity,Urine Clear (Clear); Color,Urine Yellow (Yellow); Glucose,Urine (UA) Normal (Normal); Ketones,Urine Negative (Negative); Leukocyte Esterase,Urine Negative (Negative); Nitrite,Urine Negative (Negative); Protein,Urine Negative (Neg-Trace); Specific Gravity,Urine 1.013 (1.010-1.025); Urobilinogen,Urine Normal (Normal)
[2019-09-11] MEDS ORDERED: Aspirin 325 MG TABLET PO ONE (20:39)
[2019-09-11] MEDS ORDERED: Naloxone 0.4 MG/ML INJ IVP PRN (21:06)
[2019-09-11] MEDS ORDERED: D5% in Water 1,000 ML IVC PRN (22:32)
[2019-09-11] MEDS ORDERED: Dextrose Gel 15 GM/37.5 ML TUBE PO PRN ×2 (22:32)
[2019-09-11] MEDS ORDERED: *HR* Dextrose 50 % in Water (Syg) 50 ML SYRINGE IVP PRN (22:32)
[2019-09-12] MEDS: Acetaminophen 325 MG TABLET PO PRN ×2 (00:08→06:08)
[2019-09-12] MEDS: Ascorbic Acid 500 MG TABLET PO SCH (05:30)
[2019-09-12] MEDS: Levothyroxine 25 MCG TABLET PO SCH (05:30)
[2019-09-12] MEDS: *HR* Heparin 5,000 UNIT/ML VIAL SQ SCH ×3 (05:30→21:38)
[2019-09-12] MEDS ORDERED: *HR* OxyCODONE/APAP 5/325 TABLET PO ONE (06:55)
[2019-09-12 07:16] LABS: Basophils % 0.4 %; Eosinophils # 0.3 K/mcL (0.0-0.6); Eosinophils % 4.5 %; Hematocrit 33.2 % (35.3-44.9); Hemoglobin 10.6 g/dL (11.5-15.4); Immature Granulocytes % 0.4 % (0-4); Lymphocytes # 2.3 K/mcL (0.6-4.6); Mean Corpuscular HGB Conc 31.9 g/dL (31.6-35.5); Mean Corpuscular Hemoglobin 28.4 pg (28.0-33.3); Mean Platelet Volume 11.3 fL (9.4-12.4); Monocytes # 0.5 K/mcL (0.0-1.3); Monocytes % 7.9 %; Neutrophils # 3.5 K/mcL (1.6-8.9); Platelet Count 217 K/mcL (140-400); Red Blood Count 3.73 M/mcL (3.82-4.97); Red Cell Distribution Width 14.2 % (11.5-14.5); Segmented Neutrophils % 51.8 %; White Blood Count 6.7 K/mcL (4.3-11.1)
[2019-09-12] MEDS: Anastrozole 1 MG TABLET PO SCH (07:29)
[2019-09-12] MEDS: Multivit/Ca/Min/Fe/FA 1 TAB TABLET PO SCH (07:29)
[2019-09-12 07:30] LABS: Calcium 10.2 mg/dL (8.6-10.3); Potassium 4.1 mEq/L (3.5-5.1)
[2019-09-12] MEDS: Insulin LISPRO 300 UNITS/3 ML VIAL SQ SCH ×3 (07:30→16:04)
[2019-09-12] MEDS ORDERED: amLODIPine 5 MG TABLET PO SCH (09:00)
[2019-09-12] MEDS: Aspirin 81 MG TAB.CHEW PO SCH (10:33)
[2019-09-12] MEDS: 0.9 % Sodium Chloride 1,000 ML IVC SCH (14:12)
[2019-09-13] MEDS: Acetaminophen 325 MG TABLET PO PRN ×2 (03:19→23:44)
[2019-09-13] MEDS: Ascorbic Acid 500 MG TABLET PO SCH (05:32)
[2019-09-13] MEDS: Levothyroxine 25 MCG TABLET PO SCH (05:32)
[2019-09-13] MEDS: *HR* Heparin 5,000 UNIT/ML VIAL SQ SCH ×3 (05:32→19:48)
[2019-09-13 06:43] LABS: Albumin 3.7 g/dL (3.5-5.7); Albumin/Globulin Ratio 1.3 (1.1-2.2); Bilirubin,Total 0.3 mg/dL (0.3-1.0); Calcium 9.6 mg/dL (8.6-10.3); Globulin 2.9 g/dL (2.4-3.5); Potassium 4.3 mEq/L (3.5-5.1); Total Protein 6.6 g/dL (6.4-8.9)
[2019-09-13] MEDS: Insulin LISPRO 300 UNITS/3 ML VIAL SQ SCH ×3 (07:32→17:59)
[2019-09-13] MEDS: Aspirin 81 MG TAB.CHEW PO SCH (07:53)
[2019-09-13] MEDS: Multivit/Ca/Min/Fe/FA 1 TAB TABLET PO SCH (07:53)
[2019-09-13] MEDS: Anastrozole 1 MG TABLET PO SCH (07:53)
[2019-09-13] MEDS ORDERED: amLODIPine 5 MG TABLET PO SCH ×2 (09:00→11:34)
[2019-09-13] MEDS ORDERED: amLODIPine 5 MG TABLET PO ONE (12:10)
[2019-09-13 17:21] LABS: Estimated Average Glucose 163 mg/dl
[2019-09-13] MEDS: 0.9 % Sodium Chloride 1,000 ML IVC SCH (20:59)
[2019-09-14] MEDS: Levothyroxine 25 MCG TABLET PO SCH (05:43)
[2019-09-14] MEDS: Ascorbic Acid 500 MG TABLET PO SCH (05:43)
[2019-09-14] MEDS: *HR* Heparin 5,000 UNIT/ML VIAL SQ SCH ×3 (05:43→20:10)
[2019-09-14] MEDS ORDERED: hydrALAZINE 10 MG TABLET PO ONE (05:45)
[2019-09-14] MEDS: Aspirin 81 MG TAB.CHEW PO SCH (08:07)
[2019-09-14] MEDS: amLODIPine 5 MG TABLET PO SCH (08:08)
[2019-09-14] MEDS: Anastrozole 1 MG TABLET PO SCH (08:08)
[2019-09-14] MEDS: Insulin LISPRO 300 UNITS/3 ML VIAL SQ SCH ×3 (08:09→17:05)
[2019-09-14] MEDS: Multivit/Ca/Min/Fe/FA 1 TAB TABLET PO SCH (08:09)
[2019-09-14 10:02] LABS: Hematocrit 33.2 % (35.3-44.9); Hemoglobin 10.8 g/dL (11.5-15.4); Mean Corpuscular HGB Conc 32.5 g/dL (31.6-35.5); Mean Corpuscular Hemoglobin 28.1 pg (28.0-33.3); Mean Corpuscular Volume 86.2 fL (83.0-100.0); Mean Platelet Volume 10.8 fL (9.4-12.4); Platelet Count 245 K/mcL (140-400); Red Blood Count 3.85 M/mcL (3.82-4.97); White Blood Count 6.5 K/mcL (4.3-11.1)
[2019-09-14 10:19] LABS: Calcium 9.6 mg/dL (8.6-10.3); Potassium 3.9 mEq/L (3.5-5.1)
[2019-09-14 10:20] LABS: Calcium 9.7 mg/dL (8.6-10.3); Potassium 3.9 mEq/L (3.5-5.1)
[2019-09-14] MEDS ORDERED: hydrALAZINE 25 MG TABLET PO ONE (12:24)
[2019-09-14] MEDS: 0.9 % Sodium Chloride 1,000 ML IVC SCH (15:42)
[2019-09-14] MEDS: hydrALAZINE 25 MG TABLET PO SCH (20:09)
[2019-09-14] MEDS ORDERED: Insulin DETEMIR 100 UNIT/ML X5UNITS SQ SCH ×2 (21:00)
[2019-09-15] MEDS: Acetaminophen 325 MG TABLET PO PRN (00:17)
[2019-09-15 03:15] LABS: Calcium 9.4 mg/dL (8.6-10.3)
[2019-09-15] MEDS: hydrALAZINE 25 MG TABLET PO SCH ×3 (04:12→18:03)
[2019-09-15] MEDS: Ascorbic Acid 500 MG TABLET PO SCH (05:52)
[2019-09-15] MEDS: Levothyroxine 25 MCG TABLET PO SCH (05:52)
[2019-09-15] MEDS: 0.9 % Sodium Chloride 1,000 ML IVC SCH ×3 (05:53→21:58)
[2019-09-15] MEDS: *HR* Heparin 5,000 UNIT/ML VIAL SQ SCH ×3 (05:53→20:51)
[2019-09-15] MEDS: Multivit/Ca/Min/Fe/FA 1 TAB TABLET PO SCH (12:24)
[2019-09-15] MEDS: Anastrozole 1 MG TABLET PO SCH (12:24)
[2019-09-15] MEDS: Aspirin 81 MG TAB.CHEW PO SCH (12:24)
[2019-09-15] MEDS: amLODIPine 5 MG TABLET PO SCH (12:24)
[2019-09-15] MEDS: Insulin LISPRO 300 UNITS/3 ML VIAL SQ SCH ×3 (12:27→19:38)
[2019-09-15] MEDS ORDERED: Insulin DETEMIR 100 UNIT/ML X5UNITS SQ SCH (21:00)
[2019-09-16] MEDS: Acetaminophen 325 MG TABLET PO PRN (01:18)
[2019-09-16] MEDS ORDERED: *HR* OxyCODONE/APAP 5/325 TABLET PO ONE (02:33)
[2019-09-16] MEDS: hydrALAZINE 25 MG TABLET PO SCH ×2 (02:53→12:35)
[2019-09-16 04:41] LABS: Hematocrit 32.4 % (35.3-44.9); Mean Corpuscular HGB Conc 30.9 g/dL (31.6-35.5); Mean Corpuscular Hemoglobin 28.3 pg (28.0-33.3); Mean Corpuscular Volume 91.8 fL (83.0-100.0); Mean Platelet Volume 11.4 fL (9.4-12.4); Platelet Count 178 K/mcL (140-400); Red Blood Count 3.53 M/mcL (3.82-4.97); Red Cell Distribution Width 14.6 % (11.5-14.5); White Blood Count 7.1 K/mcL (4.3-11.1)
[2019-09-16 04:56] LABS: Calcium 9.7 mg/dL (8.6-10.3); Potassium 3.9 mEq/L (3.5-5.1)
[2019-09-16] MEDS: Ascorbic Acid 500 MG TABLET PO SCH (05:11)
[2019-09-16] MEDS: *HR* Heparin 5,000 UNIT/ML VIAL SQ SCH (05:19)
[2019-09-16] MEDS: Levothyroxine 25 MCG TABLET PO SCH (05:19)
[2019-09-16] MEDS: Insulin LISPRO 300 UNITS/3 ML VIAL SQ SCH ×2 (07:30→12:36)
[2019-09-16] MEDS: Multivit/Ca/Min/Fe/FA 1 TAB TABLET PO SCH (08:39)
[2019-09-16] MEDS: Anastrozole 1 MG TABLET PO SCH (08:39)
[2019-09-16] MEDS: amLODIPine 5 MG TABLET PO SCH (08:39)
[2019-09-16] MEDS: Aspirin 81 MG TAB.CHEW PO SCH (08:39)
[2019-09-16] MEDS: 0.9 % Sodium Chloride 1,000 ML IVC SCH (08:40)
[2019-09-16 10:01] LABS: Bilirubin,Urine Negative (Negative); Blood,Urine Negative (Negative); Clarity,Urine Clear (Clear); Color,Urine Yellow (Yellow); Glucose,Urine (UA) Normal (Normal); Ketones,Urine Negative (Negative); Leukocyte Esterase,Urine Negative (Negative); Nitrite,Urine Negative (Negative); PH,Urine 6.5 pH Units (5.0-8.0); Protein,Urine Negative (Neg-Trace); Specific Gravity,Urine 1.013 (1.010-1.025); Urobilinogen,Urine Normal (Normal)
[2019-09-16 10:13] LABS: Protein/Creatinine Ratio,Urine 0.12 mg/mg (0.00-0.20)
[2019-09-16 15:23] VITALS: BP 161/71
[2019-09-18 11:19] LABS: Urine Collection Volume RANDOM mL
[2019-09-18 17:15] LABS: Urine Collection Volume RANDOM mL
== END 2019-09-16 15:59 | disposition home health service (06) | DRG 65 ==
LOC: EMEROOARM 16:07 → 3BNU 16:07
PROVIDERS: ADMIT Internal Medicine; ATTEND Internal Medicine

== ENCOUNTER 2019-09-21 16:14 | Observation (INO) ==
[2019-09-21] MEDS ORDERED: 0.9 % Sodium Chloride 1,000 ML IVC ONE (16:28)
[2019-09-21] MEDS ORDERED: Ondansetron 4 MG/2 ML VIAL IVP ONE (16:28)
[2019-09-21 17:15] LABS: Hematocrit 30.8 % (35.3-44.9); Hemoglobin 10.5 g/dL (11.5-15.4); Immature Platelets 7.8 % (1.1-6.1); Mean Corpuscular HGB Conc 34.1 g/dL (31.6-35.5); Mean Corpuscular Hemoglobin 28.8 pg (28.0-33.3); Mean Corpuscular Volume 84.4 fL (83.0-100.0); Mean Platelet Volume 11.5 fL (9.4-12.4); Red Blood Count 3.65 M/mcL (3.82-4.97); Red Cell Distribution Width 14.6 % (11.5-14.5); White Blood Count 10.7 K/mcL (4.3-11.1)
[2019-09-21 17:16] LABS: Prothrombin Time 11.8 Seconds (9.4-12.1)
[2019-09-21 17:26] LABS: Acetaminophen < 10 mcg/mL (10-20); Calcium 9.6 mg/dL (8.6-10.3); Magnesium 1.7 mg/dL (1.6-2.6); Phosphorous 3.4 mg/dL (2.7-4.5); Salicylate < 2.5 mg/dL (15.0-30.0)
[2019-09-21 17:29] LABS: Blood Urea Nitrogen 26 mg/dL (8-23); Calcium 9.6 mg/dL (8.6-10.3); Carbon Dioxide 25 mEq/L (23-29); Chloride 96 mEq/L (98-107); Glucose 156 mg/dL (70-105); Osmolality,Calculated 282 (280-300); Potassium 3.8 mEq/L (3.5-5.1); Sodium 132 mEq/L (136-145)
[2019-09-21 17:30] LABS: Troponin I < 0.03 ng/mL (< 0.04)
[2019-09-21 18:11] LABS: BUN/Creatinine Ratio 22 (6-26); eGFR For African Americans 56 (> 60); eGFR For Non-African Americans 46 (> 60)
[2019-09-21 18:57] LABS: Bilirubin,Urine Negative (Negative); Blood,Urine Negative (Negative); Clarity,Urine Clear (Clear); Color,Urine Yellow (Yellow); Glucose,Urine (UA) Normal (Normal); Ketones,Urine Negative (Negative); Leukocyte Esterase,Urine Negative (Negative); Nitrite,Urine Negative (Negative); Protein,Urine Negative (Neg-Trace); Specific Gravity,Urine 1.017 (1.010-1.025); Urobilinogen,Urine Normal (Normal)
[2019-09-21 19:07] LABS: Amphetamine Screen,Urine Negative ng/mL (Cutoff=1000); Barbiturate Screen,Urine Negative ng/mL (Cutoff=200); Benzodiazepines Screen,Urine Negative ng/mL (Cutoff=200); Cannabinoid Screen,Urine Negative ng/mL (Cutoff = 50); Cocaine Screen,Urine Negative ng/mL (Cutoff= 300); Opiate Screen,Urine Negative ng/mL (Cutoff=300); Phencyclidine Screen,Urine Negative ng/mL (Cutoff=25)
[2019-09-21] MEDS ORDERED: Naloxone 0.4 MG/ML INJ IVP PRN (22:13)
[2019-09-21] MEDS ORDERED: Ondansetron 4 MG/2 ML VIAL IVP PRN (22:13)
[2019-09-21] MEDS ORDERED: Dextrose Gel 15 GM/37.5 ML TUBE PO PRN ×2 (22:18)
[2019-09-21] MEDS ORDERED: D5% in Water 1,000 ML IVC PRN (22:18)
[2019-09-21] MEDS ORDERED: *HR* Dextrose 50 % in Water (Syg) 50 ML SYRINGE IVP PRN (22:18)
[2019-09-21 23:40] LABS: % Iron Saturation 8 % (15-50); Iron 27 mcg/dL (50-170); Magnesium 1.7 mg/dL (1.6-2.6); Phosphorous 3.3 mg/dL (2.7-4.5); Transferrin 248 mg/dL (203-362)
[2019-09-22] MEDS: hydrALAZINE 25 MG TABLET PO SCH ×2 (00:03→06:06)
[2019-09-22 00:15] LABS: Estimated Average Glucose 151 mg/dl
[2019-09-22 05:38] LABS: Basophils % 0.5 %; Eosinophils # 0.2 K/mcL (0.0-0.6); Eosinophils % 2.2 %; Hematocrit 30.2 % (35.3-44.9); Hemoglobin 10.1 g/dL (11.5-15.4); Immature Granulocytes % 0.3 % (0-4); Lymphocytes # 1.7 K/mcL (0.6-4.6); Lymphocytes % 22.8 %; Mean Corpuscular HGB Conc 33.4 g/dL (31.6-35.5); Mean Corpuscular Hemoglobin 28.5 pg (28.0-33.3); Mean Corpuscular Volume 85.1 fL (83.0-100.0); Mean Platelet Volume 11.9 fL (9.4-12.4); Monocytes # 0.6 K/mcL (0.0-1.3); Monocytes % 8.3 %; Neutrophils # 4.9 K/mcL (1.6-8.9); Platelet Count 230 K/mcL (140-400); Red Blood Count 3.55 M/mcL (3.82-4.97); Red Cell Distribution Width 14.5 % (11.5-14.5); Segmented Neutrophils % 65.9 %; White Blood Count 7.4 K/mcL (4.3-11.1)
[2019-09-22 05:57] LABS: Calcium 9.4 mg/dL (8.6-10.3); Potassium 3.5 mEq/L (3.5-5.1)
[2019-09-22] MEDS ORDERED: *HR* Heparin 5,000 UNIT/ML VIAL SQ SCH (06:00)
[2019-09-22] MEDS ORDERED: Levothyroxine 25 MCG TABLET PO SCH (06:30)
[2019-09-22] MEDS: Insulin LISPRO 300 UNITS/3 ML VIAL SQ SCH ×2 (07:59→11:37)
[2019-09-22] MEDS ORDERED: Multivit/Ca/Min/Fe/FA 1 TAB TABLET PO SCH (09:00)
[2019-09-22] MEDS ORDERED: Anastrozole 1 MG TABLET PO SCH (09:00)
[2019-09-22] MEDS ORDERED: Aspirin 81 MG TAB.CHEW PO SCH (09:00)
[2019-09-22] MEDS ORDERED: amLODIPine 5 MG TABLET PO SCH (09:00)
[2019-09-22] MEDS ORDERED: NON-FORMULARY MEDICATION 1 EACH EACH (Amlodipine Besylate 10 MG) PO SCH (09:00)
[2019-09-22] MEDS ORDERED: hydrALAZINE 25 MG TABLET PO SCH ×2 (11:37→14:00)
[2019-09-22 14:55] VITALS: BP 157/71
[2019-09-22] MEDS ORDERED: Insulin LISPRO 300 UNITS/3 ML VIAL SQ SCH (21:00)
[2019-09-23] MEDS ORDERED: Ascorbic Acid 500 MG TABLET PO SCH (06:30)
== END 2019-09-22 17:31 | disposition home or self-care (01) ==
LOC: 3BNU 16:14 → EMEROOARM 16:14 → 3BNU 20:47
PROVIDERS: ADMIT Student in an Organized Health Care Education/Training Program; ATTEND Student in an Organized Health Care Education/Training Program

== ENCOUNTER 2021-04-13 23:05 | Inpatient (IN) ==
[2021-04-14] MEDS ORDERED: *HR* OxyCODONE/APAP 5/325 TABLET PO ONE (01:34)
[2021-04-14 03:44] LABS: Basophils % 0.2 %; Eosinophils % 0.2 %; Hematocrit 27.4 % (35.3-44.9); Hemoglobin 8.9 g/dL (11.5-15.4); Immature Granulocytes % 0.3 % (0-4); Lymphocytes % 7.7 %; Mean Corpuscular HGB Conc 32.5 g/dL (31.6-35.5); Mean Corpuscular Hemoglobin 27.1 pg (28.0-33.3); Mean Corpuscular Volume 83.3 fL (83.0-100.0); Mean Platelet Volume 10.9 fL (9.4-12.4); Monocytes # 0.5 K/mcL (0.0-1.3); Monocytes % 3.9 %; Neutrophils # 11.1 K/mcL (1.6-8.9); Platelet Count 227 K/mcL (140-400); Red Blood Count 3.29 M/mcL (3.82-4.97); Red Cell Distribution Width 13.9 % (11.5-14.5); Segmented Neutrophils % 87.7 %; White Blood Count 12.6 K/mcL (4.3-11.1)
[2021-04-14 03:51] LABS: BUN/Creatinine Ratio 10 (6-26); Blood Urea Nitrogen 10 mg/dL (8-23); Calcium 9.2 mg/dL (8.6-10.3); Carbon Dioxide 27 mEq/L (23-29); Chloride 99 mEq/L (98-107); Glucose 194 mg/dL (70-105); Osmolality,Calculated 280 (280-300); Potassium 3.8 mEq/L (3.5-5.1); Sodium 133 mEq/L (136-145); eGFR For African Americans > 60 (> 60); eGFR For Non-African Americans 55 (> 60)
[2021-04-14 03:53] LABS: INR 1.2; Prothrombin Time 13.4 Seconds (9.4-12.1)
[2021-04-14 03:56] LABS: Activated Partial Thrombo Time 27.9 Seconds (26.0-36.0)
[2021-04-14] MEDS ORDERED: Ondansetron 4 MG/2 ML VIAL IVP PRN ×2 (04:25→12:47)
[2021-04-14] MEDS ORDERED: Naloxone 0.4 MG/ML INJ IVP PRN ×2 (04:25→12:47)
[2021-04-14] MEDS ORDERED: Morphine Sulfate 2 MG/ML SYRINGE IVP ONE (04:56)
[2021-04-14] MEDS ORDERED: D5% in Water 1,000 ML IVC PRN ×2 (05:11→12:47)
[2021-04-14] MEDS ORDERED: *HR* Dextrose 50 % in Water (Vial) 50 ML VIAL IVP PRN ×2 (05:11→12:47)
[2021-04-14] MEDS ORDERED: Dextrose Gel 15 GM/37.5 ML TUBE PO PRN ×4 (05:11→12:47)
[2021-04-14] MEDS ORDERED: Insulin LISPRO 300 UNITS/3 ML VIAL SUBQ SCH ×2 (07:30→21:00)
[2021-04-14] MEDS ORDERED: Acetaminophen IV 500 MG/50 ML BAG IVPB ONE (08:31)
[2021-04-14] MEDS ORDERED: *HR* HYDROmorphone PF 0.5 MG/0.5 ML SYRINGE IVP PRN (08:41)
[2021-04-14] MEDS ORDERED: *HR* FentaNYL (PF) 100 MCG/2 ML VIAL IVP PRN (08:41)
[2021-04-14] MEDS ORDERED: Ropivacaine/PF 0.5% 30 ML VIAL ONE (09:27)
[2021-04-14] MEDS ORDERED: ROPIVACAINE/PF/NS 0.25% 1 EACH SYRINGE INTRAART ONE (09:27)
[2021-04-14] MEDS ORDERED: *HR* Succinylcholine 200 MG/10 ML VIAL IVP ONE (09:42)
[2021-04-14] MEDS ORDERED: Lidocaine -MPF 2% 2 ML VIAL ONE ×2 (09:42→09:48)
[2021-04-14] MEDS ORDERED: *HR* Propofol 200 MG/20 ML VIAL IVP ONE (09:42)
[2021-04-14] MEDS ORDERED: *HR* FentaNYL (PF) 100 MCG/2 ML VIAL ONE (09:43)
[2021-04-14] MEDS ORDERED: *HR* Midazolam HCl 2 MG/2 ML VIAL ONE (09:43)
[2021-04-14] MEDS ORDERED: Ondansetron 4 MG/2 ML VIAL ONE ×2 (09:46→11:11)
[2021-04-14] MEDS ORDERED: Ondansetron 4 MG/2 ML VIAL IVP ONE (09:49)
[2021-04-14] MEDS ORDERED: Bupivacaine/EPI 1:200k 0.25% 50 ML VIAL ONE (10:08)
[2021-04-14] MEDS ORDERED: CeFAZolin 2,000 MG/120 ML BAG IVPB SCH (16:00)
[2021-04-14] MEDS ORDERED: ceFAZolin 2,000 MG in 0.9 % Sodium Chloride 100 ML IVPB SCH (16:00)
[2021-04-14] MEDS: Insulin LISPRO 300 UNITS/3 ML VIAL SUBQ SCH ×2 (17:38→20:17)
[2021-04-14] MEDS: hydrALAZINE 25 MG TABLET PO SCH (20:17)
[2021-04-15] MEDS ORDERED: Morphine Sulfate 2 MG/ML SYRINGE IVP ONE ×2 (04:00→23:32)
[2021-04-15] MEDS: *HR* Enoxaparin 40 MG/0.4 ML SYRINGE SQ SCH (04:32)
[2021-04-15] MEDS ORDERED: *HR* Enoxaparin 40 MG/0.4 ML SYRINGE SQ SCH (06:00)
[2021-04-15] MEDS: hydrALAZINE 25 MG TABLET PO SCH ×3 (07:42→19:26)
[2021-04-15] MEDS: amLODIPine 5 MG TABLET PO SCH (07:42)
[2021-04-15] MEDS ORDERED: *HR* OxyCODONE/APAP 10/325 TABLET PO PRN (07:42)
[2021-04-15] MEDS ORDERED: Acetaminophen IV 1,000 MG/100 ML BAG IVPB ONE (07:42)
[2021-04-15] MEDS: Aspirin Enteric Coated 81 MG Tablet PO SCH (07:42)
[2021-04-15] MEDS: Insulin LISPRO 300 UNITS/3 ML VIAL SUBQ SCH ×4 (10:12→19:27)
[2021-04-15] MEDS ORDERED: polyethylene glycoL 3350 17 GM POWD.PACK PO PRN (11:59)
[2021-04-15] MEDS ORDERED: *HR* OxyCODONE Immed Rel 5 MG TABLET PO ONE (12:32)
[2021-04-15 14:38] LABS: Basophils % 0.2 %; Eosinophils % 0.1 %; Hemoglobin 7.5 g/dL (11.5-15.4); Immature Granulocytes % 0.6 % (0-4); Lymphocytes # 1.4 K/mcL (0.6-4.6); Lymphocytes % 13.2 %; Mean Corpuscular HGB Conc 32.6 g/dL (31.6-35.5); Mean Corpuscular Hemoglobin 27.2 pg (28.0-33.3); Mean Corpuscular Volume 83.3 fL (83.0-100.0); Mean Platelet Volume 11.1 fL (9.4-12.4); Monocytes # 0.9 K/mcL (0.0-1.3); Monocytes % 8.9 %; Neutrophils # 8.1 K/mcL (1.6-8.9); Platelet Count 216 K/mcL (140-400); Red Blood Count 2.76 M/mcL (3.82-4.97); Red Cell Distribution Width 13.9 % (11.5-14.5); White Blood Count 10.6 K/mcL (4.3-11.1)
[2021-04-15] MEDS: *HR* OxyCODONE/APAP 10/325 TABLET PO PRN (19:26)
[2021-04-15] MEDS ORDERED: Ketorolac 30 MG/ML VIAL IVP ONE (23:32)
[2021-04-16] MEDS: *HR* Enoxaparin 40 MG/0.4 ML SYRINGE SQ SCH (05:09)
[2021-04-16 06:30] LABS: Basophils % 0.4 %; Eosinophils # 0.2 K/mcL (0.0-0.6); Eosinophils % 1.7 %; Hematocrit 23.5 % (35.3-44.9); Hemoglobin 7.2 g/dL (11.5-15.4); Immature Granulocytes % 0.4 % (0-4); Lymphocytes % 20.3 %; Mean Corpuscular HGB Conc 30.6 g/dL (31.6-35.5); Mean Corpuscular Hemoglobin 26.3 pg (28.0-33.3); Mean Corpuscular Volume 85.8 fL (83.0-100.0); Mean Platelet Volume 11.4 fL (9.4-12.4); Monocytes # 0.9 K/mcL (0.0-1.3); Monocytes % 8.9 %; Neutrophils # 6.8 K/mcL (1.6-8.9); Platelet Count 203 K/mcL (140-400); Red Blood Count 2.74 M/mcL (3.82-4.97); Red Cell Distribution Width 14.4 % (11.5-14.5); Segmented Neutrophils % 68.3 %; White Blood Count 9.9 K/mcL (4.3-11.1)
[2021-04-16] MEDS: Insulin LISPRO 300 UNITS/3 ML VIAL SUBQ SCH ×4 (07:41→19:53)
[2021-04-16] MEDS: Aspirin Enteric Coated 81 MG Tablet PO SCH (09:20)
[2021-04-16] MEDS: hydrALAZINE 25 MG TABLET PO SCH ×3 (09:20→19:53)
[2021-04-16] MEDS: *HR* OxyCODONE/APAP 10/325 TABLET PO PRN (09:21)
[2021-04-16] MEDS: amLODIPine 5 MG TABLET PO SCH (09:22)
[2021-04-16] MEDS ORDERED: Furosemide 20 MG/2 ML VIAL IVP ONE (16:14)
[2021-04-16] MEDS ORDERED: Furosemide 40 MG/4 ML VIAL IVP ONE (16:50)
[2021-04-16] MEDS ORDERED: Perflutren Lipid Microsphere 1.3 ML in 0.9 % Sodium Chloride 8.7 ML IVP PRN (17:18)
[2021-04-16] MEDS ORDERED: Ipratropium Neb 0.5 MG NEBULIZER IH PRN (17:19)
[2021-04-16] MEDS: Ipratropium/Albuterol Neb 3 ML IH SCH ×2 (17:54→21:46)
[2021-04-16] MEDS ORDERED: Isovue-370 500 ML BOTTLE IVP ONE (18:38)
[2021-04-16 21:46] LABS: ABG Base Excess 3 mEq/L (-2 to 3); ABG HCO3 28 mEq/L (21-27); ABG Oxygen Saturation 93 % (95-98); ABG PCO2 41 mmHg (35-45); ABG PH 7.44 pH Units (7.32-7.45); ABG PO2 66 mmHg (85-104); ABG TCO2 29 mEq/L (20-26)
[2021-04-17 00:58] LABS: Calcium 8.8 mg/dL (8.6-10.3); Potassium 3.7 mEq/L (3.5-5.1)
[2021-04-17 01:03] LABS: Basophils % 0.4 %; Eosinophils # 0.1 K/mcL (0.0-0.6); Eosinophils % 1.4 %; Hemoglobin 7.6 g/dL (11.5-15.4); Immature Granulocytes % 0.4 % (0-4); Lymphocytes # 0.8 K/mcL (0.6-4.6); Mean Corpuscular HGB Conc 31.7 g/dL (31.6-35.5); Mean Corpuscular Hemoglobin 26.5 pg (28.0-33.3); Mean Corpuscular Volume 83.6 fL (83.0-100.0); Mean Platelet Volume 11.2 fL (9.4-12.4); Monocytes # 0.7 K/mcL (0.0-1.3); Monocytes % 7.2 %; Neutrophils # 8.2 K/mcL (1.6-8.9); Platelet Count 214 K/mcL (140-400); Red Blood Count 2.87 M/mcL (3.82-4.97); Red Cell Distribution Width 14.2 % (11.5-14.5); Segmented Neutrophils % 82.6 %
[2021-04-17 01:05] LABS: Troponin I 0.13 ng/mL (< 0.04)
[2021-04-17] MEDS: Ipratropium/Albuterol Neb 3 ML IH SCH ×4 (03:23→22:41)
[2021-04-17] MEDS ORDERED: Morphine Sulfate 2 MG/ML SYRINGE IVP ONE (04:00)
[2021-04-17] MEDS: *HR* Enoxaparin 40 MG/0.4 ML SYRINGE SQ SCH (04:05)
[2021-04-17] MEDS ORDERED: *HR* Heparin 5,000 UNIT/ML VIAL IVP PRN ×2 (04:33)
[2021-04-17] MEDS: Heparin 25,000UNIT/250ML 1/2NS 25,000 UNIT/250 ML IV.SOLN IVC SCH (05:10)
[2021-04-17 06:04] LABS: Hemoglobin 7.6 g/dL (11.5-15.4); Red Blood Count 2.79 M/mcL (3.82-4.97); White Blood Count 8.8 K/mcL (4.3-11.1)
[2021-04-17 06:05] LABS: Mean Corpuscular Hemoglobin 27.2 pg (28.0-33.3); Mean Corpuscular Volume 82.4 fL (83.0-100.0); Mean Platelet Volume 11.5 fL (9.4-12.4); Platelet Count 220 K/mcL (140-400); Red Cell Distribution Width 14.2 % (11.5-14.5)
[2021-04-17 06:10] LABS: Heparin anti-factor XA UFH 0.26 IU/mL (0.30-0.70); INR 1.2; Prothrombin Time 13.8 Seconds (9.4-12.1)
[2021-04-17] MEDS: hydrALAZINE 25 MG TABLET PO SCH ×3 (09:23→21:18)
[2021-04-17] MEDS: NIFEdipine XL (24 HR) 60 MG TAB.ER.24 PO SCH (09:23)
[2021-04-17] MEDS: Insulin LISPRO 300 UNITS/3 ML VIAL SUBQ SCH ×4 (09:24→21:23)
[2021-04-17] MEDS: Aspirin Enteric Coated 81 MG Tablet PO SCH (09:31)
[2021-04-17] MEDS: *HR* OxyCODONE/APAP 10/325 TABLET PO PRN (14:36)
[2021-04-17 16:31] LABS: Hematocrit 22.8 % (35.3-44.9); Hemoglobin 7.3 g/dL (11.5-15.4)
[2021-04-17 16:56] LABS: Troponin I 0.24 ng/mL (< 0.04)
[2021-04-17] MEDS: Isosorbide MONOnitrate (24 HR) 30 MG TAB.ER.24H PO SCH (17:10)
[2021-04-17] MEDS: Nitroglycerin 0.4 MG TAB.SUBL SL PRN ×2 (17:13→17:24)
[2021-04-17] MEDS ORDERED: 0.9 % Sodium Chloride 250 ML IVC SCH (17:15)
[2021-04-17] MEDS ORDERED: 0.9 % Sodium Chloride 250 ML ONE (18:53)
[2021-04-18 00:14] LABS: Hemoglobin 8.7 g/dL (11.5-15.4)
[2021-04-18] MEDS: *HR* OxyCODONE/APAP 10/325 TABLET PO PRN ×3 (03:10→16:19)
[2021-04-18] MEDS: Ipratropium/Albuterol Neb 3 ML IH SCH ×4 (03:36→22:23)
[2021-04-18 03:45] LABS: Basophils % 0.3 %; Eosinophils # 0.3 K/mcL (0.0-0.6); Eosinophils % 3.4 %; Hematocrit 25.8 % (35.3-44.9); Hemoglobin 8.6 g/dL (11.5-15.4); Immature Granulocytes % 0.6 % (0-4); Lymphocytes # 1.6 K/mcL (0.6-4.6); Lymphocytes % 16.1 %; Mean Corpuscular HGB Conc 33.3 g/dL (31.6-35.5); Mean Corpuscular Hemoglobin 28.5 pg (28.0-33.3); Mean Corpuscular Volume 85.4 fL (83.0-100.0); Mean Platelet Volume 11.3 fL (9.4-12.4); Monocytes # 0.9 K/mcL (0.0-1.3); Monocytes % 8.6 %; Neutrophils # 7.2 K/mcL (1.6-8.9); Platelet Count 224 K/mcL (140-400); Red Blood Count 3.02 M/mcL (3.82-4.97); White Blood Count 10.1 K/mcL (4.3-11.1)
[2021-04-18 03:50] LABS: Calcium 8.8 mg/dL (8.6-10.3); Potassium 3.7 mEq/L (3.5-5.1)
[2021-04-18 04:03] LABS: Thyroid Stimulating Hormone 1.393 mcIU/mL (0.340-5.600)
[2021-04-18 04:24] LABS: Estimated Average Glucose 126 mg/dl
[2021-04-18] MEDS ORDERED: *HR* HYDROmorphone 2 MG TABLET PO ONE (04:41)
[2021-04-18] MEDS: Heparin 25,000UNIT/250ML 1/2NS 25,000 UNIT/250 ML IV.SOLN IVC SCH (05:44)
[2021-04-18] MEDS ORDERED: Iron Sucrose Complex 200 MG in 0.9 % Sodium Chloride 100 ML IVPB ONE (08:03)
[2021-04-18] MEDS: hydrALAZINE 25 MG TABLET PO SCH ×2 (09:20→18:35)
[2021-04-18] MEDS: Aspirin Enteric Coated 81 MG Tablet PO SCH (09:20)
[2021-04-18] MEDS: Isosorbide MONOnitrate (24 HR) 30 MG TAB.ER.24H PO SCH (09:20)
[2021-04-18] MEDS: NIFEdipine XL (24 HR) 60 MG TAB.ER.24 PO SCH (09:21)
[2021-04-18] MEDS: Insulin LISPRO 300 UNITS/3 ML VIAL SUBQ SCH ×4 (09:22→20:35)
[2021-04-18] MEDS ORDERED: Furosemide 40 MG/4 ML VIAL IVP ONE (12:54)
[2021-04-19] MEDS: hydrALAZINE 25 MG TABLET PO SCH ×3 (00:10→15:53)
[2021-04-19] MEDS: Ipratropium/Albuterol Neb 3 ML IH SCH ×3 (03:28→15:55)
[2021-04-19 04:44] LABS: Basophils % 0.4 %; Eosinophils # 0.3 K/mcL (0.0-0.6); Eosinophils % 3.6 %; Hematocrit 26.2 % (35.3-44.9); Hemoglobin 8.8 g/dL (11.5-15.4); Immature Granulocytes % 0.5 % (0-4); Lymphocytes % 12.9 %; Mean Corpuscular HGB Conc 33.6 g/dL (31.6-35.5); Mean Corpuscular Hemoglobin 28.2 pg (28.0-33.3); Monocytes # 0.6 K/mcL (0.0-1.3); Monocytes % 7.9 %; Neutrophils # 5.9 K/mcL (1.6-8.9); Platelet Count 213 K/mcL (140-400); Red Blood Count 3.12 M/mcL (3.82-4.97); Red Cell Distribution Width 15.1 % (11.5-14.5); Segmented Neutrophils % 74.7 %; White Blood Count 7.8 K/mcL (4.3-11.1)
[2021-04-19 05:03] LABS: BUN/Creatinine Ratio 19 (6-26); Blood Urea Nitrogen 18 mg/dL (8-23); Calcium 9.2 mg/dL (8.6-10.3); Carbon Dioxide 28 mEq/L (23-29); Chloride 92 mEq/L (98-107); Glucose 177 mg/dL (70-105); Magnesium 1.8 mg/dL (1.6-2.6); Osmolality,Calculated 274 (280-300); Potassium 3.5 mEq/L (3.5-5.1); Sodium 129 mEq/L (136-145); eGFR For African Americans > 60 (> 60); eGFR For Non-African Americans 57 (> 60)
[2021-04-19 07:41] VITALS: BP 164/64; PULSE 90; TEMP 98.7
[2021-04-19] MEDS: Aspirin Enteric Coated 81 MG Tablet PO SCH (08:08)
[2021-04-19] MEDS: NIFEdipine XL (24 HR) 60 MG TAB.ER.24 PO SCH (08:09)
[2021-04-19] MEDS: Isosorbide MONOnitrate (24 HR) 30 MG TAB.ER.24H PO SCH (08:09)
[2021-04-19] MEDS: Insulin LISPRO 300 UNITS/3 ML VIAL SUBQ SCH ×2 (08:09→12:01)
[2021-04-19 09:41] LABS: Adenovirus Not Detected (Not Detect); Bordetella Pertussis Not Detected (Not Detect); Chlamydophila pneumoniae Not Detected (Not Detect); Coronavirus 229E Not Detected (Not Detect); Coronavirus HKU1 Not Detected (Not Detect); Coronavirus NL63 Not Detected (Not Detect); Coronavirus OC43 Not Detected (Not Detect); Human Metapneumovirus Not Detected (Not Detect); Human Rhinovirus/Enterovirus Not Detected (Not Detect); Influenza A Subtype 2009 H1 Not Detected (Not Detect); Influenza B Not Detected (Not Detect); Mycoplasma pneumoniae Not Detected (Not Detect); Parainfluenza Virus 1 Not Detected (Not Detect); Parainfluenza Virus 2 Not Detected (Not Detect); Parainfluenza Virus 3 Not Detected (Not Detect); Parainfluenza Virus 4 Not Detected (Not Detect); Respiratory Syncytial Virus Not Detected (Not Detect); SARS-CoV-2 Not Detected (Not Detect)
[2021-04-19] MEDS ORDERED: Furosemide 40 MG/4 ML VIAL IVP ONE (10:45)
[2021-04-19 15:57] VITALS: O2SAT 97
[2021-04-19] MEDS: *HR* OxyCODONE/APAP 10/325 TABLET PO PRN (16:59)
== END 2021-04-19 17:05 | DRG 492 ==
LOC: EMEROOARM 23:05 → 3NENU 23:05 → SUATTDRO 04-14 04:00 → 3NENU 04-14 04:24 → SUATTDRO 04-16 16:15
PROVIDERS: ADMIT Family Medicine; ATTEND Pharmacist

== ENCOUNTER 2021-05-22 08:57 | Inpatient (IN) ==
[2021-05-22] MEDS ORDERED: Naloxone 0.4 MG/ML INJ IVP PRN (11:17)
[2021-05-22 12:56] LABS: Folate > 22.3 ng/mL (3.0-16.0); Vitamin B12 773 pg/mL (250-1100)
[2021-05-22] MEDS: Pantoprazole 40 MG in 0.9 % Sodium Chloride Mini Bag 100 ML IVC SCH ×2 (13:35→20:12)
[2021-05-22] MEDS ORDERED: 0.9 % Sodium Chloride 250 ML ONE (15:24)
[2021-05-22] MEDS: hydrALAZINE 25 MG TABLET PO SCH ×2 (15:42→23:15)
[2021-05-22 16:20] LABS: Ferritin 122 ng/mL (10-120)
[2021-05-22 17:26] LABS: Hematocrit 20.3 % (35.3-44.9); Immature Reticulocyte % 16.1 % (11.0-38.0); Retculocyte # 0.08 M/mcL (0.05-0.10); Reticulocyte % 3.3 % (1.6-2.8)
[2021-05-22 17:27] LABS: Hemoglobin 6.5 g/dL (11.5-15.4)
[2021-05-22] MEDS ORDERED: Pantoprazole 40 MG VIAL IVP SCH (18:00)
[2021-05-22] MEDS: Ondansetron 4 MG/2 ML VIAL IVP PRN (20:07)
[2021-05-22 21:21] LABS: Transferrin 205 mg/dL (203-362)
[2021-05-22 21:52] LABS: % Iron Saturation 14 % (15-50); Iron 39 mcg/dL (50-170)
[2021-05-22 23:14] LABS: Hematocrit 27.9 % (35.3-44.9)
[2021-05-22 23:22] LABS: Hemoglobin 9.1 g/dL (11.5-15.4)
[2021-05-22] MEDS: Metoclopramide 10 MG/2 ML VIAL IVP PRN (23:22)
[2021-05-23] MEDS: Pantoprazole 40 MG in 0.9 % Sodium Chloride Mini Bag 100 ML IVC SCH ×3 (01:11→12:13)
[2021-05-23 06:20] LABS: Basophils # 0.1 K/mcL (0.0-0.2); Basophils % 0.7 %; Eosinophils # 0.4 K/mcL (0.0-0.6); Eosinophils % 5.5 %; Hematocrit 27.2 % (35.3-44.9); Hemoglobin 9.1 g/dL (11.5-15.4); Immature Granulocytes % 0.9 % (0-4); Lymphocytes # 2.3 K/mcL (0.6-4.6); Lymphocytes % 33.8 %; Mean Corpuscular HGB Conc 33.5 g/dL (31.6-35.5); Mean Corpuscular Hemoglobin 29.5 pg (28.0-33.3); Mean Corpuscular Volume 88.3 fL (83.0-100.0); Monocytes # 0.5 K/mcL (0.0-1.3); Monocytes % 7.3 %; Neutrophils # 3.5 K/mcL (1.6-8.9); Platelet Count 175 K/mcL (140-400); Red Blood Count 3.08 M/mcL (3.82-4.97); Red Cell Distribution Width 15.2 % (11.5-14.5); Segmented Neutrophils % 51.8 %; White Blood Count 6.7 K/mcL (4.3-11.1)
[2021-05-23 06:38] LABS: BUN/Creatinine Ratio 20 (6-26); Blood Urea Nitrogen 20 mg/dL (8-23); Calcium 8.6 mg/dL (8.6-10.3); Carbon Dioxide 26 mEq/L (23-29); Chloride 105 mEq/L (98-107); Glucose 125 mg/dL (70-105); Osmolality,Calculated 284 (280-300); Potassium 4.1 mEq/L (3.5-5.1); Sodium 135 mEq/L (136-145); eGFR For African Americans > 60 (> 60); eGFR For Non-African Americans 55 (> 60)
[2021-05-23] MEDS: amLODIPine 5 MG TABLET PO SCH (07:57)
[2021-05-23] MEDS: Aspirin Enteric Coated 81 MG Tablet PO SCH (07:57)
[2021-05-23] MEDS: hydrALAZINE 25 MG TABLET PO SCH ×2 (07:57→15:59)
[2021-05-23] MEDS: Ondansetron 4 MG/2 ML VIAL IVP PRN (07:57)
[2021-05-23] MEDS: Metoclopramide 10 MG/2 ML VIAL IVP PRN (12:18)
[2021-05-23] MEDS ORDERED: *HR* Propofol 200 MG/20 ML VIAL IVP ONE ×2 (12:32→13:17)
[2021-05-23] MEDS ORDERED: Lidocaine -MPF 2% 5 ML VIAL ONE ×2 (12:33→12:47)
[2021-05-23] MEDS ORDERED: Iron Sucrose Complex 400 MG in 0.9 % Sodium Chloride 250 ML IVPB ONE (15:12)
[2021-05-23] MEDS: rOPINIRole 1 MG TABLET PO SCH (21:43)
[2021-05-24] MEDS: hydrALAZINE 25 MG TABLET PO SCH ×4 (00:11→23:22)
[2021-05-24 05:54] LABS: Basophils % 0.5 %; Eosinophils # 0.3 K/mcL (0.0-0.6); Eosinophils % 4.6 %; Hematocrit 27.1 % (35.3-44.9); Immature Granulocytes % 0.7 % (0-4); Lymphocytes # 1.3 K/mcL (0.6-4.6); Lymphocytes % 20.6 %; Mean Corpuscular HGB Conc 33.2 g/dL (31.6-35.5); Mean Corpuscular Hemoglobin 29.5 pg (28.0-33.3); Mean Corpuscular Volume 88.9 fL (83.0-100.0); Mean Platelet Volume 11.1 fL (9.4-12.4); Monocytes # 0.4 K/mcL (0.0-1.3); Monocytes % 6.9 %; Platelet Count 181 K/mcL (140-400); Red Blood Count 3.05 M/mcL (3.82-4.97); Red Cell Distribution Width 15.1 % (11.5-14.5); Segmented Neutrophils % 66.7 %; White Blood Count 6.1 K/mcL (4.3-11.1)
[2021-05-24 06:12] LABS: Alanine Aminotransferase 11 Units/L (7-52); Albumin 3.1 g/dL (3.5-5.7); Albumin/Globulin Ratio 1.1 (1.1-2.2); Alkaline Phosphatase 77 Units/L (34-104); Aspartate Amino Transferase 11 Units/L (13-39); BUN/Creatinine Ratio 13 (6-26); Bilirubin,Total 0.4 mg/dL (0.3-1.0); Blood Urea Nitrogen 11 mg/dL (8-23); Calcium 8.8 mg/dL (8.6-10.3); Carbon Dioxide 24 mEq/L (23-29); Chloride 101 mEq/L (98-107); Globulin 2.9 g/dL (2.4-3.5); Glucose 206 mg/dL (70-105); Magnesium 1.7 mg/dL (1.6-2.6); Osmolality,Calculated 277 (280-300); Phosphorous 3.2 mg/dL (2.7-4.5); Potassium 3.7 mEq/L (3.5-5.1); Sodium 131 mEq/L (136-145); eGFR For African Americans > 60 (> 60); eGFR For Non-African Americans > 60 (> 60)
[2021-05-24] MEDS: Multivit/Ca/Min/Fe/FA 1 TAB TABLET PO SCH (08:15)
[2021-05-24] MEDS: Aspirin Enteric Coated 81 MG Tablet PO SCH (08:15)
[2021-05-24] MEDS: rOPINIRole 1 MG TABLET PO SCH ×2 (08:15→20:24)
[2021-05-24] MEDS: amLODIPine 5 MG TABLET PO SCH (08:15)
[2021-05-24] MEDS: Pantoprazole 40 MG VIAL IVP SCH (08:16)
[2021-05-24] MEDS ORDERED: lisinopriL 10 MG TABLET PO SCH (09:00)
[2021-05-24] MEDS ORDERED: Lidocaine -MPF 2% 5 ML VIAL ONE (10:25)
[2021-05-24] MEDS ORDERED: *HR* Propofol 200 MG/20 ML VIAL IVP ONE ×2 (10:37→11:42)
[2021-05-24] MEDS: Ondansetron 4 MG/2 ML VIAL IVP PRN (16:44)
[2021-05-24] MEDS: Metoclopramide 10 MG/2 ML VIAL IVP PRN (20:27)
[2021-05-25 06:00] LABS: Basophils % 0.3 %; Eosinophils # 0.3 K/mcL (0.0-0.6); Eosinophils % 4.4 %; Hematocrit 28.2 % (35.3-44.9); Hemoglobin 9.5 g/dL (11.5-15.4); Immature Granulocytes % 0.5 % (0-4); Lymphocytes # 1.2 K/mcL (0.6-4.6); Lymphocytes % 19.7 %; Mean Corpuscular HGB Conc 33.7 g/dL (31.6-35.5); Mean Corpuscular Hemoglobin 29.9 pg (28.0-33.3); Mean Corpuscular Volume 88.7 fL (83.0-100.0); Mean Platelet Volume 11.1 fL (9.4-12.4); Monocytes # 0.5 K/mcL (0.0-1.3); Monocytes % 8.1 %; Neutrophils # 4.1 K/mcL (1.6-8.9); Platelet Count 201 K/mcL (140-400); Red Blood Count 3.18 M/mcL (3.82-4.97); Red Cell Distribution Width 15.2 % (11.5-14.5); White Blood Count 6.1 K/mcL (4.3-11.1)
[2021-05-25 06:21] LABS: Alanine Aminotransferase 11 Units/L (7-52); Albumin 3.2 g/dL (3.5-5.7); Albumin/Globulin Ratio 1.4 (1.1-2.2); Alkaline Phosphatase 85 Units/L (34-104); Aspartate Amino Transferase 12 Units/L (13-39); BUN/Creatinine Ratio 6 (6-26); Bilirubin,Total 0.5 mg/dL (0.3-1.0); Blood Urea Nitrogen 5 mg/dL (8-23); Calcium 8.9 mg/dL (8.6-10.3); Carbon Dioxide 27 mEq/L (23-29); Chloride 103 mEq/L (98-107); Globulin 2.3 g/dL (2.4-3.5); Glucose 132 mg/dL (70-105); Magnesium 1.8 mg/dL (1.6-2.6); Osmolality,Calculated 279 (280-300); Phosphorous 3.1 mg/dL (2.7-4.5); Potassium 3.5 mEq/L (3.5-5.1); Sodium 135 mEq/L (136-145); Total Protein 5.5 g/dL (6.4-8.9); eGFR For African Americans > 60 (> 60); eGFR For Non-African Americans > 60 (> 60)
[2021-05-25] MEDS: Pantoprazole 40 MG VIAL IVP SCH (08:49)
[2021-05-25] MEDS: Multivit/Ca/Min/Fe/FA 1 TAB TABLET PO SCH (08:50)
[2021-05-25] MEDS: hydrALAZINE 25 MG TABLET PO SCH ×2 (08:50→16:09)
[2021-05-25] MEDS: Aspirin Enteric Coated 81 MG Tablet PO SCH (08:50)
[2021-05-25] MEDS: rOPINIRole 1 MG TABLET PO SCH ×2 (08:50→19:43)
[2021-05-25] MEDS ORDERED: NIFEdipine XL (24 HR) 60 MG TAB.ER.24 PO SCH (09:00)
[2021-05-25] MEDS: Ondansetron 4 MG/2 ML VIAL IVP PRN (11:58)
[2021-05-25 12:15] LABS: Adenovirus Not Detected (Not Detect); Bordetella Pertussis Not Detected (Not Detect); Chlamydophila pneumoniae Not Detected (Not Detect); Coronavirus 229E Not Detected (Not Detect); Coronavirus HKU1 Not Detected (Not Detect); Coronavirus NL63 Not Detected (Not Detect); Coronavirus OC43 Not Detected (Not Detect); Human Metapneumovirus Not Detected (Not Detect); Human Rhinovirus/Enterovirus Not Detected (Not Detect); Influenza A Subtype 2009 H1 Not Detected (Not Detect); Influenza B Not Detected (Not Detect); Mycoplasma pneumoniae Not Detected (Not Detect); Parainfluenza Virus 1 Not Detected (Not Detect); Parainfluenza Virus 2 Not Detected (Not Detect); Parainfluenza Virus 3 Not Detected (Not Detect); Parainfluenza Virus 4 Not Detected (Not Detect); Respiratory Syncytial Virus Not Detected (Not Detect); SARS-CoV-2 Not Detected (Not Detect)
[2021-05-25] MEDS: Metoclopramide 10 MG/2 ML VIAL IVP PRN (17:34)
[2021-05-25 19:10] VITALS: BP 156/62; PULSE 80; TEMP 97.9; O2SAT 97
== END 2021-05-25 22:37 | disposition other institution (70) | DRG 811 ==
LOC: 2ANU → SUATTDRO 11:11
PROVIDERS: ADMIT Internal Medicine; ATTEND Internal Medicine
PROC: ENDOEBX (2021-05-23 13:00)